=== PATIENT | female | born 1970 | race Caucasian/White ===

== ENCOUNTER → 2016-03-16 | Outpatient (CLI) | payer BC ==
[2016-03-16 15:57] LABS: Basophils # (A) 0.1 k/uL (0-0.2); Basophils % (A) 1 %; CH 24.9; CHCM 31.4; Eosinophils # (A) 0.1 k/uL (0-0.7); Eosinophils % (A) 1 %; HCT 34.5 % (34.0-46.0); HDW 2.67; HGB 10.4 gm/dL (11.4-16.0); Hypochromasia Slight; Luc % (Auto) 2; Lymphocytes # (A) 1.5 k/uL (1.0-4.8); Lymphocytes % (A) 26 %; MCH 23.9 pg (25.0-35.0); MCHC 30.2 g/dL (31.0-37.0); MCV 79.3 fL (80.0-100.0); Mean Platelet Volume 7.3; Monocytes # (A) 0.5 k/uL (0-1.0); Monocytes % (A) 8 %; Neutrophils # (A) 3.5 k/uL (1.3-7.7); Neutrophils % (A) 62 %; RBC 4.34 m/uL (3.80-5.40); RDW 15.5 % (11.5-15.5); WBC 5.7 k/uL (3.8-10.6); WBC (Perox) 5.93
[2016-03-16 16:04] LABS: Potassium 4.1 mmol/L (3.5-5.1)
== END | disposition home or self-care (01) ==
LOC: LABPAT 15:24
PROVIDERS: ATTEND Orthopaedic Surgery
DX: Z01.812 Encounter for preprocedural laboratory examination (principal); M23.92 Unspecified internal derangement of left knee
CPT/HCPCS: 80051; 85025

== ENCOUNTER 2016-03-23 08:17 | Day surgery (SDC) | payer BC ==
[2016-03-17 14:24] VITALS: BMI 25.7
--- NOTE | 2016-03-22 14:58 | HP ---
DATE OF ADMISSION: 03/23/2016 Loyda Madsen is a 46-year-old patient seen with left knee pain. After having treatment options discussed, she elected to proceed with left knee arthroscopy. Consent regarding the procedure was obtained. Her past medical history is attention deficit disorder, depression, hypothyroidism, migraine headaches. Past surgical history is right knee arthroscopy, right knee patellofemoral replacement. DAILY MEDICATIONS: 1. Adderall. 2. Amitriptyline. 3. Cymbalta. 4. Levothyroxine. 5. Gabapentin. ALLERGIES: None. SOCIAL HISTORY: Patient denies tobacco use. Physical evaluation of the left knee: Range of motion is -1/2 to 120 degrees, tenderness along the medial joint line. Tenderness along the lateral joint line. Positive medial Danita's. Ligaments are stable. There is crepitus of the patellofemoral joint range of motion. There is some discomfort of the patellofemoral compression. Hip rotation without pain. Distal neurovascular exam intact. Radiographs of the left knee revealed moderate medial and moderate lateral and moderate to severe patellofemoral compartment osteoarthritis. An MRI of the left knee revealed medial meniscal tear as well as osteoarthritic changes. IMPRESSION: 1. Internal derangement of the left knee with medial meniscal tear. 2. Left knee osteoarthritis. PLAN: Left knee arthroscopy with partial meniscectomy and debridement.
[~2016-03-23 08:17] MED LIST: DEXAMETHASONE SOD PHOSPHATE 10 MG/ML 1 ML VIAL IV ONE; LIDOCAINE 1% 20 ML VIAL (10MG/ML) FOR IV START INTRADERMA PRN; MIDAZOLAM 2 MG/2 ML VIAL IV PRN; ONDANSETRON 4 MG/2 ML VIAL IVP ONE; SCOPOLAMINE 1.5MG/72HR PATCH TRANSDERM ONE; ceFAZolin 1,000 MG in DEXTROSE/WATER 1 50ML.BAG IV ONE
[2016-03-23 09:00] VITALS: RESP 16
[2016-03-23] MEDS: LACTATED RINGERS 1,000 ML IV SCH ×2 (09:01→09:51)
[2016-03-23] MEDS ORDERED: PHENYLEPHRINE-0.9% NACL SYG 1 MG/10 ML SYRINGE ONE (09:54)
[2016-03-23] MEDS ORDERED: BUPIVACAIN-EPI 0.25%-1:200,000 30 ML VIAL INTRAARTIC ONE (09:54)
[2016-03-23] MEDS ORDERED: MIDAZOLAM 2 MG/2 ML VIAL ONE (09:54)
[2016-03-23] MEDS ORDERED: PROPOFOL 10 MG/ML 20 ML VIAL IV ONE (09:54)
[2016-03-23] MEDS ORDERED: KETOROLAC 30 MG/ML 1 ML VIAL ONE (09:54)
[2016-03-23] MEDS ORDERED: LIDOCAINE 1% INJ 10MG/ML (20 ML MDV) ONE (09:54)
[2016-03-23] MEDS ORDERED: fentaNYL (PF) 50 MCG/ML 2 ML AMP ONE (09:54)
[2016-03-23 10:44] VITALS: TEMP 97.2
--- NOTE | 2016-03-23 10:49 | P.OP ---
Date of Procedure: 03/23/16 Preoperative Diagnosis: Internal derangement left knee Postoperative Diagnosis: 1. Tear medial and lateral meniscus left knee 2. Grade 2/3 chondromalacia patella left knee 3. Medial plica left knee 4. Reactive synovitis medial and suprapatellar compartments left knee Procedure(s) Performed: 1. Arthroscopic partial medial and lateral meniscectomy left knee 2. Arthroscopic chondroplasty patella left knee 3. Arthroscopic resection medial plica left knee 4. Arthroscopic partial synovectomy medial and suprapatellar compartments left knee Anesthesia: HEATHERA, local Surgeon: Edd Barnes Estimated Blood Loss (ml): 5 Pathology: none sent Condition: stable Disposition: PACU Indications for Procedure: 46-year-old patient seen with progressive left knee pain. After having treatment options discussed, she elected to proceed with left knee arthroscopy. Operative Findings: See description of procedure Description of Procedure: Patient was taken to the operative suite. Patient underwent a general anesthetic by the department of anesthesia. Patient was given preoperative antibiotics. The left lower extremity was placed in a well-padded arthroscopic leg avery. The left leg was prepped and draped in the normal sterile orthopedic fashion. A lateral parapatellar and suprapatellar incision was made. Trochars were inserted. Arthroscopy was initiated. Suprapatellar pouch revealed thick reactive synovitis. The patellofemoral joint appeared to articulate congruently. There was grade 2/3 chondromalacia. The scope was guided into the medial gutter. There was a plica identified which seem to impinge along the medial femoral condyle with range of motion The scope was then guided into the medial compartment. A medial parapatellar incision was made. Trocar inserted followed by probe. There was a radial tear involving the posterior horn and midbody area of meniscus. Grade 1 chondromalacia changes of the tibial plateau. Thick reactive synovitis anteriorly. A partial medial meniscectomy was performed on a stable tissue. A partial synovectomy was performed. The residual meniscus was probed and found to be stable. Scope and probe were then guided into the intercondylar notch. Cruciates were identified, probed and found to be stable. The scope and probe were then guided into lateral compartment. There was a posterior horn lateral meniscal tear. No loose bodies or reactive synovitis. A partial lateral meniscectomy was performed on a stable tissue. The residual meniscus was probed and found to be stable. The scope was in guided back into the suprapatellar compartment. A motorized shaver was now introduced into the suprapatellar compartment. I resected that medial plica. I performed a chondroplasty of the patella. I performed a partial synovectomy. Shaver was removed. I took the knee through range of motion noted complete resection of the medial plica with no impingement of the soft tissues on the medial femoral condyle. I took one more look on the entire knee, no residual debris. Instruments were now removed from the joint. The joint was infiltrated with .25% Marcaine. Steri-Strips were applied to the portal sites. Sterile dressings were applied. The patient was placed into a ALMA hose. No tourniquet was utilized. The patient was awakened, transferred to a bed and taken to recovery stable satisfactory condition.
[2016-03-23] MEDS: HYDROmorphone 1 MG/ML 1 ML SYRINGE IVP PRN ×4 (10:55→11:22)
[2016-03-23] MEDS ORDERED: MIDAZOLAM 2 MG/2 ML VIAL IVP ONE (11:30)
[2016-03-23] MEDS ORDERED: HYDROcodone/APAP 7.5-325MG 1 EACH TAB PO ONE (12:06)
[2016-03-23 12:27] VITALS: BP 108/78; PULSE 75
== END 2016-03-23 12:38 | disposition home or self-care (01) ==
LOC: OR 08:17
PROVIDERS: ATTEND Orthopaedic Surgery
DX: S83.242A Other tear of medial meniscus, current injury, left knee, initial encounter (principal); S83.282A Other tear of lateral meniscus, current injury, left knee, initial encounter; X58.XXXA Exposure to other specified factors, initial encounter; M17.12 Unilateral primary osteoarthritis, left knee; M22.42 Chondromalacia patellae, left knee; M67.52 Plica syndrome, left knee; M65.862 Other synovitis and tenosynovitis, left lower leg; F98.8 Other specified behavioral and emotional disorders with onset usually occurring in childhood and adolescence; F32.9 Major depressive disorder, single episode, unspecified; E03.9 Hypothyroidism, unspecified; G43.909 Migraine, unspecified, not intractable, without status migrainosus; M79.7 Fibromyalgia; Z79.899 Other long term (current) drug therapy
CPT/HCPCS: 81025; 29880; J2250; J1100; J2405; J2001; J3010; J1885; J1170; J0690; J2370; J2704

== ENCOUNTER → 2016-05-16 | Outpatient (CLI) | payer BC ==
[2016-05-16 10:42] LABS: Basophils # (A) 0.1 k/uL (0-0.2); Basophils % (A) 1 %; CH 23.7; CHCM 30.7; Eosinophils % (A) 1 %; HCT 33.4 % (34.0-46.0); HGB 10.2 gm/dL (11.4-16.0); Hypochromasia Moderate; Luc # (Auto) 0.15; Luc % (Auto) 2; Lymphocytes % (A) 11 %; MCH 23.7 pg (25.0-35.0); MCHC 30.7 g/dL (31.0-37.0); MCV 77.3 fL (80.0-100.0); Mean Platelet Volume 7.3; Microcytosis Slight; Monocytes # (A) 0.4 k/uL (0-1.0); Monocytes % (A) 5 %; Neutrophils # (A) 7.6 k/uL (1.3-7.7); Neutrophils % (A) 82 %; RBC 4.32 m/uL (3.80-5.40); RDW 15.7 % (11.5-15.5); WBC 9.2 k/uL (3.8-10.6); WBC (Perox) 9.65
[2016-05-16 11:02] LABS: Potassium 4.1 mmol/L (3.5-5.1)
== END | disposition home or self-care (01) ==
LOC: LABPAT 08:58
PROVIDERS: ATTEND Orthopaedic Surgery
DX: Z01.818 Encounter for other preprocedural examination (principal)
CPT/HCPCS: 36415; 80051; 85025

== ENCOUNTER 2016-05-17 07:59 | Day surgery (SDC) | payer BC ==
[2016-05-16 11:35] VITALS: BMI 26.4
--- NOTE | 2016-05-16 15:58 | HP ---
DATE OF ADMISSION: 05/17/2016 Loyda Madsen is a 46-year-old lady seen with a displaced right knee patella fracture with history of previous right knee patellofemoral arthroplasty. I recommended open reduction internal fixation of the right knee patella fracture. I discussed the procedure, risks, complications, benefits, recovery. The patient was agreeable. Consent was obtained. Past medical history is attention deficit disorder, depression, hypothyroidism, migraine headaches, osteoarthritis. Past surgical history is right knee arthroscopy, right knee patellofemoral joint arthroplasty. DAILY MEDICATIONS: Adderall, amitriptyline, Cymbalta, levothyroxine, gabapentin. ALLERGIES: None. SOCIAL HISTORY: Patient denies tobacco use. PHYSICAL EVALUATION OF THE RIGHT KNEE: There is previous well-healed anterior incision present. There is anterior ecchymosis. Limited range of motion. Mild effusion. Tenderness along the patella with obvious defect. Distal neurovascular exam is intact. Radiographs of the right knee revealed a displaced patella fracture with evidence of previous patellofemoral joint arthroplasty. IMPRESSION: 1. Right knee displaced patella fracture. 2. History of right knee patellofemoral arthroplasty. PLAN: Open reduction internal fixation of right knee patella fracture.
[~2016-05-17 07:59] MED LIST changes: +HYDROmorphone 1 MG/ML 1 ML SYRINGE IVP PRN; -LIDOCAINE 1% 20 ML VIAL (10MG/ML) FOR IV START INTRADERMA PRN
[2016-05-17] MEDS: LACTATED RINGERS 1,000 ML IV SCH ×2 (08:31→13:40)
[2016-05-17] MEDS ORDERED: LIDOCAINE 1% 20 ML VIAL (10MG/ML) FOR IV START INTRADERMA ONE (08:31)
[2016-05-17] MEDS ORDERED: MIDAZOLAM 2 MG/2 ML VIAL IVP ONE (08:50)
[2016-05-17] MEDS ORDERED: ROPIVACAINE 1,100 MG, SODIUM CHLORIDE 0.9% 330 ML MISCELLANE PRN ×2 (09:13)
[2016-05-17] MEDS ORDERED: fentaNYL (PF) 50 MCG/ML 2 ML AMP IV ONE (09:14)
--- NOTE | 2016-05-17 09:15 | P.ONQ ---
Anesthesiology Proc Note - PNB - Peripheral Nerve Block Performed Right Adductor Canal Infusion Time Out Performed: Yes Procedure Start Time: 08:50 Procedure Stop Time: 09:05 Indication: Acute Post-Operative Pain, Analgesia Specifically requested for management of pain by DrSharyn: Edd Barnes Sedation Type: Sedate with meaningful contact maintained Preparation: Sterile Prep Position: Supine Catheter Depth at Skin (cm): 8 Catheter: Indwelling Needle Types: On-Q Needle Size: 100mm (4") Needle Gauge: 20 Technique: Ultrasound Injectate: 0.5% Ropivacaine (see comment for volume) (20) Blood Aspirated: No Pain Paresthesia on Injection Noted: No Resistance on Injection: Normal Events: Uneventful and Well Tolerated
[2016-05-17] MEDS ORDERED: PROPOFOL 10 MG/ML 20 ML VIAL IV ONE (09:59)
[2016-05-17] MEDS ORDERED: fentaNYL (PF) 50 MCG/ML 2 ML AMP ONE (09:59)
[2016-05-17] MEDS ORDERED: MIDAZOLAM 2 MG/2 ML VIAL ONE (09:59)
[2016-05-17] MEDS ORDERED: SODIUM CHLORIDE 0.9% 100 ML with GENTAMICIN 80 MG IV ONE ×2 (10:25)
[2016-05-17] MEDS ORDERED: ceFAZolin 1,000 MG in SODIUM CHLORIDE 0.9% 1,000 ML IRRIGATION ONE (10:37)
--- NOTE | 2016-05-17 11:38 | P.OP ---
Date of Procedure: 05/17/16 Preoperative Diagnosis: Displaced right knee patella fracture with previous patellofemoral compartment arthroplasty Postoperative Diagnosis: Same Procedure(s) Performed: Open reduction and internal fixation right knee patella fracture Implants: To 0.62 K wires and one 16-gauge cerclage wire Anesthesia: regional (Adductor canal block), spinal Surgeon: Edd Barnes Grounds Keeper #1: Manjit Gibbs Estimated Blood Loss (ml): 10 Pathology: none sent Condition: stable Disposition: PACU Indications for Procedure: 46-year-old patient seen with a displaced right knee patella fracture with evidence of previous patellofemoral compartment arthroplasty. I recommended open reduction and internal fixation. Patient was agreeable and consent was obtained. Operative Findings: See description of procedure Description of Procedure: Patient was taken to the operative suite after having undergone an adductor canal block by the department of anesthesia. The patient received preoperative IV antibiotics. A final anesthetic was performed by the department of anesthesia. A well-padded tourniquet was placed proximal right lower extremity. The right lower extremity was then prepped and draped in the normal sterile orthopedic fashion. The extremity was elevated and tourniquet insufflated to 350. A midline incision was made over the previous cicatrix extending approximately 2 cm proximally and distally. We medially encountered a hemarthrosis/effusion that was evacuated. We carefully dissected around the patella noting a mid/proximal third patella fracture. The proximal portion was bony in the distal portion containing the patellar component which appeared to be well seated and stable. 2 of the 3 pegs for the patella were cemented stable he into the distal component. I felt the patellar component was adequately stabilized by this. We now carefully abraded the ends of the patella. I decided to repair the patella and not stabilize the component to the proximal piece inferior getting some cement interposed between the fragments. I irrigated the wound out with antibiotic solution. I then passed the 2-0.62 K wires through the distal portion of the patella. We now reduce the patella anatomically and in a retrograde fashion passed the K wires to the proximal pole of the patella. We now used the cerclage wire compressing the patella down. The ends of the cerclage were clipped and buried in the soft tissue. The ends of th K wires were clipped and bent and again buried in soft tissue. A C-arm was brought in confirming good reduction of the fracture with good positioning of the internal fixation. Spot films were obtained to document that. The wound again was irrigated with antibiotic irrigant. The retinaculum medially and laterally was repaired with #3 Vicryl. The subcu soft tissues were repaired in layers with 2-0 Vicryl. The subcutaneous skin was repaired with a running 3-0 strata fix suture and the skin was repaired with pernio/Dermabond. The tourniquet was released noting good capillary refill the extremity. Sterile dressings followed by loose Jordan bandage web roll were applied patient the extremity was now placed into a knee immobilizer locked at full extension. The patient was awakened transferred to a bed and taken recovery stable condition. Manjit LEVINE assisted with the procedure.
[2016-05-17] MEDS ORDERED: HYDROcodone/APAP 7.5-325MG 1 EACH TAB PO PRN ×2 (11:39)
[2016-05-17] MEDS ORDERED: ONDANSETRON 4 MG/2 ML VIAL IVP PRN (11:39)
[2016-05-17] MEDS ORDERED: HYDROmorphone 1 MG/ML 1 ML SYRINGE IVP PRN ×2 (11:39)
[2016-05-17] MEDS ORDERED: MAGNESIUM HYDROXIDE 2,400 MG/10 ML CUP PO PRN (11:39)
[2016-05-17] MEDS ORDERED: NALOXONE 0.4 MG/ML 1 ML VIAL IV PRN (11:39)
--- NOTE | 2016-05-17 11:58 | FL ---
EXAMINATION TYPE: FL guidance operating room DATE OF EXAM: 05/17/2016 11:08 AM HISTORY: Flouroscopy time 10 seconds of fluoroscopy provided. IMPRESSION: 1. Fluoroscopy time.
--- NOTE | 2016-05-17 12:05 | XR ---
EXAMINATION TYPE: XR knee limited RT DATE OF EXAM: 05/17/2016 11:08 AM COMPARISON: NONE TECHNIQUE: 2 view submitted HISTORY: Post op FINDINGS: There is postoperative change in near anatomic alignment. There is soft tissue edema and emphysema. IMPRESSION: 1. Postoperative change. Appears in near-anatomic alignment
[2016-05-17] MEDS: traMADol 50 MG TAB PO SCH ×3 (14:18→21:29)
[2016-05-17] MEDS: CYCLOBENZAPRINE 10 MG TAB PO PRN (14:18)
[2016-05-17] MEDS: ceFAZolin 2 GM in SODIUM CHLORIDE 0.9% 100 ML IVPB SCH (16:19)
[2016-05-17] MEDS: HYDROcodone/APAP 7.5-325MG 1 EACH TAB PO PRN ×2 (16:19→21:29)
[2016-05-17] MEDS ORDERED: SENNOSIDES-DOCUSATE SODIUM 1 EACH TAB PO SCH (21:00)
[2016-05-17] MEDS ORDERED: GABAPENTIN 300 MG CAP PO SCH (21:00)
[2016-05-17] MEDS ORDERED: AMITRIPTYLINE HCL 10 MG TAB PO SCH (21:00)
[2016-05-17] MEDS ORDERED: PSYLLIUM HUSK 100% 6 GM PACKET PO SCH (21:00)
[2016-05-18] MEDS: ceFAZolin 2 GM in SODIUM CHLORIDE 0.9% 100 ML IVPB SCH (00:13)
[2016-05-18] MEDS: HYDROcodone/APAP 7.5-325MG 1 EACH TAB PO PRN ×2 (02:54→08:15)
[2016-05-18] MEDS ORDERED: LEVOTHYROXINE 25 MCG TAB PO SCH (06:30)
[2016-05-18] MEDS: traMADol 50 MG TAB PO SCH (08:23)
[2016-05-18] MEDS: CYCLOBENZAPRINE 10 MG TAB PO PRN (08:24)
[2016-05-18 08:25] VITALS: BP 130/76; PULSE 82; RESP 17; TEMP 98.2
[2016-05-18] MEDS ORDERED: DULoxetine HCL 60 MG CAPSULE.DR PO SCH (09:00)
[2016-05-18] MEDS ORDERED: NON-FORMULARY DRUG (Dextroamphetamine/Amphetamine [Adderall] 20 MG) PO SCH (09:00)
[2016-05-18] MEDS ORDERED: ENOXAPARIN 30 MG/0.3 ML SYRINGE SQ SCH (09:00)
[2016-05-18] MEDS ORDERED: FAMOTIDINE 20 MG TAB PO SCH (09:00)
--- NOTE | 2016-05-18 10:02 | P.PN ---
Subjective Principal diagnosis: Status post ORIF right patella fracture patient is seen today resting in her hospital bed, she scab family at bedside. She's doing very well at this point, she has no acute complaints. She denies any lightheadedness, chest pain, shortness of breath, nausea or vomiting. Objective - Vital Signs Vital signs: Vital Signs Temp 98.2 F 05/18/16 07:00 Pulse 82 05/18/16 07:00 Resp 17 05/18/16 07:00 BP 130/76 05/18/16 07:00 Pulse Ox 100 05/18/16 07:00 Intake & Output 05/17/16 05/18/16 05/18/16 18:59 06:59 18:59 Intake Total 954 Output Total 10 Balance 944 Weight 69.85 kg Intake: IV 954 Output: Estimated Blood Loss 10 Other: # Voids 1 1 - Exam Right lower extremity: Initial postoperative bandage removed along with hinge knee brace has been locked in full extension. Incision is clean, dry and intact. There is ecchymosis and swelling present on the aspects of the incision. Plantar flexion , dorsiflexion, EHL, FHL are intact. Sensory exam light touch is intact throughout the extremity, cap refills less than 2 seconds. Assessment and Plan Plan: Assessment: 1. Postop day #1 status post ORIF right patella fracture Plan: 1. Pain control, she'll be discharged home on oral medication 2. She will remain nonweightbearing 3. Utilize hinge knee brace, locked in full extension 4. GI and DVT prophylaxis, aspirin 325 mg twice a day for 2 weeks 5. Ice and elevate/daily dressing changes 6. Discharge planning: Patient will be discharged home today Time with Patient: Less than 30
--- NOTE | 2016-05-18 10:09 | P.DS ---
Providers Date of admission: 05/17/2016 Expected date of discharge: 05/18/16 Attending physician: Edd Barnes Primary care physician: [facility] Course: Date of admission: 05/17/2016 Date of discharge: 05/18/2016 Admission diagnosis: Status post open reduction internal fixation right patellar fracture Discharge diagnosis: Same Attending physician: Dr. Barnes Surgical procedures: Open reduction internal fixation right patellar fracture Brief history: Patient is a 46-year-old female with a history of recent fall at her home. Patient fell directly on the right knee, after the injury she was unable to extend her leg. She was seen in the outpatient setting by myself, or x-rays were done which demonstrated a displaced right patellar fracture. Patient was scheduled for immediate follow-up with Dr. Barnes, where surgical intervention was discussed and scheduled for 05/17/2016. Hospital course: Details of patient's surgery can be found in operative report. Patient tolerated the procedure well and was subsequently transported to orthopedic floor. Patient's orthopeidc and medical care was provided daily. Patient was treated with Lovenox for their postoperative DVT prophylaxis during their inpatient stay. Patient was noted to have a relatively uneventful postoperative course. Patient reported satisfactory pain control with oral pain medications by postoperative day 0. Patient moved steadily through the program and had no difficulty meeting the goals by postoperative day 1. Given patient's otherwise satisfactory course and having met physical therapy goals, plan is to discharge patient home on postoperative day 1. Discharge condition/disposition: Patient will be discharged home in stable condition. Discharge medications: Instructions are given on resumption of patient's normal daily medications per primary care recommendation, in addition patient will be prescribed [place] 7.5 mg/325 mg, aspirin 325 mg. Discharge instructions: 1. Wound care and infection precautions, keep incision dry and covered while showering, no lotions, creams, moisturizers. No soaking, tubs, pools, hottubs. Do not scrub over the incision. 2. nonweightbearing right lower extremity, utilize hinge knee brace locked in full extension 3. Ice and elevate when necessary. Do not exceed 20 minutes per hour with ice pack. 4. Utilize compression sleeve until seen at first follow up appointment. 5. Pain meds and anticoagulants per prescription. 6. Pain medication has potential to cause constipation. Increase oral fluid and fiber intake. Contact primary care provider if you have not had a bowel movement within 48 hours after discharge 7. No anti-inflammatory medication until discussed at first post operative visit, this including Motrin, Aleve, Mobic, Diclofenac. 8. Follow up in office at 2 weeks postop with Jose Rafael Gibbs PA-C 9. Follow up with your primary care doctor 7-10 days after discharge. 10. Contact [facility] with any questions, . Procedures: ORIF right patellar fracture Patient Condition at Discharge: Good Plan - Discharge Summary New Discharge Prescriptions: Aspirin 325 mg PO BID #30 tab HYDROcodone/APAP 7.5-325MG [[place] 7.5] 1 - 2 each PO Q6HR PRN #40 tab PRN Reason: Pain Discharge Medication List Amitriptyline HCl [Elavil] 30 mg PO HS 03/17/16 [History] Cyclobenzaprine [Flexeril] 10 mg PO TID PRN 03/17/16 [History] DULoxetine HCL [Cymbalta] 60 mg PO DAILY 03/17/16 [History] Gabapentin [Neurontin] 600 mg PO HS 03/17/16 [History] Levothyroxine Sodium [Synthroid] 25 mcg PO DAILY 03/17/16 [History] HYDROcodone/APAP 7.5-325MG [[place] 7.5] 1 each PO Q6HR PRN #20 tab 03/23/16 [Rx] Dextroamphetamine/Amphetamine [Adderall] 20 mg PO DAILY 05/16/16 [History] Aspirin 325 mg PO BID #30 tab 05/18/16 [Rx] HYDROcodone/APAP 7.5-325MG [[place] 7.5] 1 - 2 each PO Q6HR PRN #40 tab 05/18/16 [ Rx] Follow up Appointment(s)/Referral(s): Manjit Gibbs PAC [PHYSICIAN [employer]] - 2 Weeks Activity/Diet/Wound Care/Special Instructions: Discharge instructions: 1. Nonweightbearing right lower extremity 2. Utilize hinge knee brace locked in full extension 3. Ice and elevate often 4. Daily dressing changes 5. Aspirin 325 mg twice a day for DVT prophylaxis 6. Pain medication as needed 7. Patient will follow-up [facility] in 2 weeks Discharge Disposition: HOME SELF-CARE
--- NOTE | 2016-05-18 12:15 | P.PN ---
Progress Note - Text 0730 anesthesia POD 1. Patient is status post ORIF right patellar fracture under spinal anesthesia with a right adductor canal catheter placed for postoperative pain relief. Currently 0.2% ropivacaine is infusing at 12 mL per hour patient reports a VAS of (2, 4) and is preparing to be discharged home with instructions on removing the catheter and dressing it with a Band-Aid when the infusion is finished. Catheter site is clean dry and the dressing is intact.
== END 2016-05-18 12:06 | disposition home or self-care (01) ==
LOC: OR 07:59 → 3SUR 11:35 → OR 05-18 12:06
PROVIDERS: ATTEND Orthopaedic Surgery
DX: S82.001A Unspecified fracture of right patella, initial encounter for closed fracture (principal); X58.XXXA Exposure to other specified factors, initial encounter; F90.9 Attention-deficit hyperactivity disorder, unspecified type; F32.9 Major depressive disorder, single episode, unspecified; E03.9 Hypothyroidism, unspecified; M19.90 Unspecified osteoarthritis, unspecified site; Z79.899 Other long term (current) drug therapy
CPT/HCPCS: 97116; 97161; 81025; 73560; 27524; C1713; C1772; J2250; J1580; J1100; J0690 ×4; J2405; J3010; J1650; J2704

== ENCOUNTER 2016-06-19 14:08 | Observation (INO) | payer BC ==
--- NOTE | 2016-06-18 18:06 | HP ---
DATE OF ADMISSION: REASON FOR ADMISSION: Surgery scheduled on 06/19/2016 Loyda Madsen is a 46-year-old patient seen with a displaced right knee patella fracture. She had previously undergone patellofemoral joint reconstruction. She sustained a patella fracture of that reconstruction, which underwent primary repair by myself on 05/17/2016. She was seen in the office postoperatively. We noted some displacement of the fracture. I recommended open reduction internal fixation/revision. I discussed, the procedure, risks, complications recovery period. Patient was agreeable. Consent was obtained. Her past medical history is attention deficit disorder, depression, hypothyroidism and migraine headaches. Past surgical history is right knee arthroscopy, right knee patellofemoral joint reconstruction, open reduction and internal fixation of right patella fracture. Daily medications: 1. Adderall. 2. Amitriptyline. 3. Gabapentin. 4. Levothyroxine. 5. Cymbalta. ALLERGIES: None. SOCIAL HISTORY: Patient denies tobacco use. Physical evaluation of the right knee: There is evidence for a well-healed anterior incision. There is tenderness about area. There is a limited range of motion. Her distal neurovascular exam is intact. Homans and Arnoldo are negative. Radiographs were obtained of the right knee revealing a displaced patella fracture stable -appearing internal fixation hardware and stable -appearing patellofemoral joint reconstruction. IMPRESSION: Right knee patella fracture. PLAN: Open reduction and internal fixation right knee patella fracture.
[~2016-06-19 14:08] MED LIST changes: -DEXAMETHASONE SOD PHOSPHATE 10 MG/ML 1 ML VIAL IV ONE; -HYDROmorphone 1 MG/ML 1 ML SYRINGE IVP PRN; -MIDAZOLAM 2 MG/2 ML VIAL IV PRN; -ONDANSETRON 4 MG/2 ML VIAL IVP ONE; -SCOPOLAMINE 1.5MG/72HR PATCH TRANSDERM ONE
[2016-06-19] MEDS ORDERED: DEXAMETHASONE SOD PHOSPHATE 10 MG/ML 1 ML VIAL IV ONE (14:16)
[2016-06-19] MEDS ORDERED: ONDANSETRON 4 MG/2 ML VIAL IVP ONE (14:16)
[2016-06-19] MEDS ORDERED: HYDROmorphone 1 MG/ML 1 ML SYRINGE IVP PRN ×4 (14:16→18:33)
[2016-06-19] MEDS ORDERED: SCOPOLAMINE 1.5MG/72HR PATCH TRANSDERM ONE (14:16)
[2016-06-19] MEDS ORDERED: MIDAZOLAM 2 MG/2 ML VIAL IV PRN (14:16)
[2016-06-19] MEDS ORDERED: LIDOCAINE 1% 20 ML VIAL (10MG/ML) FOR IV START INTRADERMA ONE (14:23)
[2016-06-19] MEDS ORDERED: LACTATED RINGERS 1,000 ML IV ONE ×2 (14:23→17:57)
[2016-06-19] MEDS ORDERED: MIDAZOLAM 2 MG/2 ML VIAL IVP ONE (14:44)
[2016-06-19] MEDS ORDERED: fentaNYL (PF) 50 MCG/ML 2 ML AMP IV ONE (14:45)
--- NOTE | 2016-06-19 16:05 | P.ONQ ---
Anesthesiology Proc Note - PNB - Peripheral Nerve Block Performed Right Adductor Canal Infusion Time Out Performed: Yes Indication: Acute Post-Operative Pain, Analgesia Specifically requested for management of pain by DrSharyn: Edd Barnes Sedation Type: Sedate with meaningful contact maintained Preparation: Sterile Prep Position: Supine Catheter Depth at Skin (cm): 6 Catheter: Indwelling Needle Types: On-Q Needle Size: 100mm (4") Needle Gauge: 20 Technique: Ultrasound Injectate: 0.5% Ropivacaine (see comment for volume) (20 cc) Blood Aspirated: No Pain Paresthesia on Injection Noted: No Resistance on Injection: Normal Events: Uneventful and Well Tolerated
[2016-06-19] MEDS ORDERED: PROPOFOL 10 MG/ML 20 ML VIAL IV ONE (16:33)
[2016-06-19] MEDS ORDERED: fentaNYL (PF) 50 MCG/ML 2 ML AMP ONE (16:33)
[2016-06-19] MEDS ORDERED: MIDAZOLAM 2 MG/2 ML VIAL ONE (16:33)
[2016-06-19] MEDS ORDERED: ceFAZolin 1,000 MG VIAL ONE (16:33)
[2016-06-19] MEDS ORDERED: BUPIVACAINE (PF) 0.25% 30 ML VIAL SQ ONE (17:04)
[2016-06-19] MEDS ORDERED: ceFAZolin 3,000 MG in SODIUM CHLORIDE 0.9% IRRIGATIO 3,000 ML IRRIGATION ONE (17:05)
[2016-06-19] MEDS ORDERED: ROPIVACAINE 1,100 MG, SODIUM CHLORIDE 0.9% 330 ML MISCELLANE PRN ×2 (17:30)
[2016-06-19] MEDS ORDERED: NALOXONE 0.4 MG/ML 1 ML VIAL IV PRN (18:33)
[2016-06-19] MEDS ORDERED: ONDANSETRON 4 MG/2 ML VIAL IVP PRN (18:33)
[2016-06-19] MEDS ORDERED: hydrOXYzine PAMOATE 25 MG CAP PO PRN (18:33)
[2016-06-19] MEDS ORDERED: HYDROcodone/APAP 7.5-325MG 1 EACH TAB PO PRN ×2 (18:33)
--- NOTE | 2016-06-19 18:33 | P.OP ---
Date of Procedure: 06/19/16 Preoperative Diagnosis: Displaced right knee patella fracture Postoperative Diagnosis: Displaced right knee patella fracture Procedure(s) Performed: Open reduction and internal fixation right knee patella fracture Implants: 1-34 mm 4.0 cannulated screw 1-30 mm 4.0 cannulated screw Anesthesia: CHRIS local Surgeon: Edd Barnes Manager Sales And Marketing #1: Manjit Gibbs Estimated Blood Loss (ml): 10 Pathology: none sent Condition: stable Disposition: PACU Indications for Procedure: 46-year-old patient seen with a displaced right knee patella fracture. I recommended open reduction and internal fixation. Patient was agreeable and consent was obtained. Operative Findings: see description of procedure Description of Procedure: Patient was taken to the operative suite after having undergone and adductor canal block by department of anesthesia. A well-padded tourniquet was now placed right lower extremity. The right lower extremity was now prepped and draped in the normal sterile orthopedic fashion. The patient had received preoperative IV antibiotics. The extremity is elevated and tourniquet insufflated to 350. An anterior incision made through the previous cicatrix sharply through skin. Dissection was taken down to the area of the patella. The patella was identified. After careful dissection the fracture was identified. I removed previous cerclage wire and previous K wires. I now freshened up the edges of the bone margins with a rongeur. I then irrigated the wound out copiously with pulse lavage mechanical irrigation. I then passed the guidewires for the cannulated screws through her previous K wire holes. I reduced the fracture. I confirmed adequate alignment on intraoperative fluoroscopy. I then depth gauged the wires for appropriate screw lengths. I confirmed this also on C-arm fluoroscopy. I then reamed the holes and introduced to appropriate length 4.0 cannulated screws securing the fracture in good alignment securely. I then passed a cerclage wire and performed a tension banding technique. The wire ends were clipped. This is buried in soft tissue. The C-arm was brought in confirming good alignment and good positioning of our fixation. Spot films were obtained documenting. The wound again was irrigated with pulse lavage Irrigation. The fascia overlying the patella was repaired with #1 Vicryl. The subcu soft tissues were repaired layers with 2-0 Vicryl. This goes approximated with a running subcuticular 3-0 strata fix suture followed by Dermabond and pernio. The subcutaneous skin was now infiltrated local analgesic. We applied sterile dressings. The tourniquet was released and immediate capillary refill was noted about the infection may. Sterile webril and Jordan bandage were applied. The patient was placed into a to a knee immobilizer and then transferred to a bed and recovery stable condition. Jose Rafael LEVINE assisted with the procedure.
[2016-06-19] MEDS ORDERED: LACTATED RINGERS 1,000 ML IV SCH (18:45)
--- NOTE | 2016-06-19 20:25 | FL ---
EXAMINATION TYPE: FL guidance operating room, XR knee limited RT DATE OF EXAM: 06/19/2016 6:10 PM CLINICAL HISTORY: Right patellar fracture. TECHNIQUE: Fluoroscopy. Intraoperative limited views right knee. COMPARISON: None. FINDINGS: Fluoroscopic guidance was provided during right knee surgical procedure performed by Dr. Barnes. A total of 8 seconds of fluoroscopic time was utilized during the procedure and 2 spot im ages are acquired. Intraoperative images acquired show 2 fixating screws with cerclage wire through the patella. Metalli c hardware anterior in the distal femur is noted. IMPRESSION: As Above.
[2016-06-19] MEDS ORDERED: PSYLLIUM HUSK 100% 6 GM PACKET PO SCH (21:00)
[2016-06-19] MEDS ORDERED: GABAPENTIN 300 MG CAP PO SCH (21:00)
[2016-06-19] MEDS ORDERED: AMITRIPTYLINE HCL 10 MG TAB PO SCH (21:00)
[2016-06-19 21:02] VITALS: BMI 24.8
[2016-06-19] MEDS: LACTATED RINGERS 1,000 ML IV SCH ×2 (21:51→23:11)
[2016-06-19] MEDS: ALPRAZolam 0.5 MG TAB PO PRN (22:04)
[2016-06-19] MEDS: traMADol 50 MG TAB PO SCH (23:11)
[2016-06-20] MEDS: ceFAZolin 2 GM in SODIUM CHLORIDE 0.9% 100 ML IVPB SCH ×2 (00:15→07:21)
[2016-06-20] MEDS ORDERED: LEVOTHYROXINE 25 MCG TAB PO SCH (06:30)
[2016-06-20 07:01] LABS: Basophils % (A) 0 %; CHCM 29.8; Eosinophils % (A) 0 %; HCT 32.5 % (34.0-46.0); HDW 2.81; HGB 10.4 gm/dL (11.4-16.0); Hypochromasia Marked; Luc # (Auto) 0.16; Luc % (Auto) 1; Lymphocytes # (A) 1.3 k/uL (1.0-4.8); Lymphocytes % (A) 9 %; MCH 24.8 pg (25.0-35.0); MCHC 32.1 g/dL (31.0-37.0); MCV 77.1 fL (80.0-100.0); Mean Platelet Volume 6.4; Microcytosis Slight; Monocytes # (A) 0.7 k/uL (0-1.0); Monocytes % (A) 5 %; Neutrophils # (A) 12.3 k/uL (1.3-7.7); Neutrophils % (A) 85 %; RBC 4.21 m/uL (3.80-5.40); RDW 15.3 % (11.5-15.5); WBC 14.5 k/uL (3.8-10.6); WBC (Perox) 15.49
[2016-06-20] MEDS: LACTATED RINGERS 1,000 ML IV SCH (07:21)
[2016-06-20] MEDS: ALPRAZolam 0.5 MG TAB PO PRN (08:44)
--- NOTE | 2016-06-20 08:58 | P.PN ---
Progress Note - Text 0755 anesthesia POD 1. Patient is status post ORIF right patella under spinal anesthesia with a right adductor canal catheter placed for postoperative pain relief. VAS equals (0, 0). Ropivacaine 0.2% is running at 8 mL per hour. Catheter site is clean dry and the dressing is intact.
[2016-06-20] MEDS ORDERED: ENOXAPARIN 30 MG/0.3 ML SYRINGE SQ SCH (09:00)
[2016-06-20] MEDS ORDERED: DULoxetine HCL 60 MG CAPSULE.DR PO SCH (09:00)
[2016-06-20] MEDS ORDERED: MULTIVITAMINS, THERA 1 EACH TAB PO SCH (12:00)
--- NOTE | 2016-06-20 12:47 | P.CONS ---
History of Present Illness - Reason for Consult Consult date: 06/20/16 Medical management - History of Present Illness This is a 46-year-old female patient of Dr. Jeremi Ferreira with a past medical history of fibromyalgia under the care of Dr. De León, osteoarthritis , hypothyroidism. Patient states that she fell on May 10 and sustained a right patella fracture. She underwent open reduction and internal fixation of the right knee on May [address] Barnes. Subsequently, she returned to [facility] on 06/19/2016 and underwent open reduction internal fixation. Patient has had no postop complications. She states she is able to walk with crutches and be nonweightbearing on the right leg. She also has a knee immobilizer. She has a right adductor canal catheter in place. She denies any pain issues. Review of Systems All systems: negative Constitutional: Denies chills, Denies fever Eyes: denies blurred vision, denies pain Ears, nose, mouth and throat: Denies headache, Denies sore throat Cardiovascular: Denies chest pain, Denies shortness of breath Respiratory: Denies cough Gastrointestinal: Denies abdominal pain, Denies diarrhea, Denies nausea, Denies vomiting Genitourinary: Denies dysuria, Denies hematuria Musculoskeletal: Denies myalgias Integumentary: Denies pruritus, Denies rash Neurological: Denies numbness, Denies weakness Psychiatric: Denies anxiety, Denies depression Endocrine: Denies fatigue, Denies weight change Past Medical History Past Medical History: Fibromyalgia, Osteoarthritis (OA), Thyroid Disorder Additional Past Medical History / Comment(s): HX OF FX RIGHT KNEE WITH SURGERY AND RE-INJURED KNEE- WEARING BRACE AND USING CRUTCHES. History of Any Multi-Drug Resistant Organisms: None Reported Past Surgical History: Cholecystectomy, Joint Replacement, Tubal Ligation Additional Past Surgical History / Comment(s): LEFT KNEE ARTHROSCOPIC , PARTIAL RIGHT KNEE REPLACEMENT, ORIF RIGHT KNEE FX (05/17/16 and 06/19/2016) Past Anesthesia/Blood Transfusion Reactions: Postoperative Nausea & Vomiting ( PONV) Past Psychological History: ADD/ADHD, Anxiety Smoking Status: Never smoker Past Alcohol Use History: Rare Additional Past Alcohol Use History / Comment(s): Patient is a lifelong nonsmoker. She denies any other street drug use. She does not have a medical marijuana card. He lives at home with her children 18 and 20 years old. Past Drug Use History: Marijuana Additional Drug Use History / Comment(s): OCCASIONAL MARIJUANA USE. - Past Family History Mother Family Medical History: Cancer Additional Family Medical History / Comment(s): Mother is alive at age 72 with history of hysterectomy in her 40s for noncancerous reason. Sister(s) Family Medical History: Cancer, Rheumatoid Arthritis (RA) Additional Family Medical History / Comment(s): Patient has one half sister with rheumatoid arthritis and one half-sister with history of bone cancer status post bone marrow transplant. Father Additional Family Medical History / Comment(s): Mother at age 80 from heart failure with history of coronary artery disease status post 4 vessel CABG. Medications and Allergies Home Medications Medication Instructions Recorded Confirmed Type Amitriptyline HCl [Elavil] 30 mg PO HS 03/17/16 06/20/16 History DULoxetine HCL [Cymbalta] 60 mg PO DAILY 03/17/16 06/20/16 History Gabapentin [Neurontin] 600 mg PO HS 03/17/16 06/20/16 History Levothyroxine Sodium [Synthroid] 25 mcg PO DAILY 03/17/16 06/20/16 History Dextroamphetamine/Amphetamine 20 mg PO DAILY PRN 05/16/16 06/20/16 History [Adderall] ALPRAZolam [Xanax] 0.5 mg PO TID PRN 06/16/16 06/20/16 History Calcium Carbonate [Calcium] 1,200 mg PO DAILY 06/16/16 06/20/16 History Multivitamins, Thera [Multivitamin 1 tab PO DAILY 06/16/16 06/20/16 History (formulary)] Psyllium Husk 100% [Metamucil 6 gm PO HS 06/16/16 06/20/16 History Packet] HYDROcodone/APAP 7.5-325MG [[place] 1 - 2 tab PO Q6HR PRN 06/20/16 06/20/16 History 7.5] Allergies Allergy/AdvReac Type Severity Reaction Status Date / Time No Known Allergies Allergy Verified 06/16/16 13:46 Physical Exam Vitals: Vital Signs Temp Pulse Pulse Resp BP Pulse Ox 06/20/16 06:10 98.1 F 73 18 108/68 96 06/19/16 23:00 98.5 F 83 18 125/90 06/19/16 22:00 79 18 144/86 100 06/19/16 21:00 87 18 118/85 100 06/19/16 20:00 98.5 F 87 18 117/80 100 06/19/16 19:33 55 L 16 118/45 99 06/19/16 19:15 52 L 16 111/66 99 06/19/16 19:01 52 L 16 109/67 99 06/19/16 18:46 55 L 16 118/65 99 06/19/16 18:32 97 F L 55 L 16 122/60 99 06/19/16 14:16 98.1 F 82 18 122/66 98 Intake and Output 06/19/16 06/20/16 06/20/16 22:59 06:59 14:59 Intake Total 1161 1200 Output Total 10 Balance 1151 1200 Intake: IV 561 Oral 600 1200 Output: Estimated Blood Loss 10 Other: Voiding Method Toilet # Voids 2 4 Weight 65.77 kg Gen: This is a 46-year-old female. She is sitting up in bed and appears to be in no acute distress. HEENT: Head is atraumatic, normocephalic. Pupils equal, round. Sclerae is anicteric. NECK: Supple. No JVD. No lymphadenopathy. No thyromegaly. LUNGS: Clear to auscultation. No wheezes or rhonchi. No intercostal retractions. HEART: Regular rate and rhythm. No murmur. ABDOMEN: Soft. Bowel sounds are present. No masses. No tenderness. EXTREMITIES: No pedal edema. No calf tenderness. Right sided knee immobilizer and dressing in place. NEUROLOGICAL: Patient is awake, alert and oriented x3. Cranial nerves 2 through 12 are grossly intact. Results CBC & Chem 7: 06/20/16 06:35 Labs: Abnormal Lab Results - Last 24 Hours (Table) 06/20/16 Range/Units 06:35 WBC 14.5 H (3.8-10.6) k/uL Hgb 10.4 L (11.4-16.0) gm/dL Hct 32.5 L (34.0-46.0) % MCV 77.1 L (80.0-100.0) fL MCH 24.8 L (25.0-35.0) pg Neutrophils # 12.3 H (1.3-7.7) k/uL Assessment and Plan Plan: 1. Patella fracture status post ORIF with no postop complications. Continue current pain management. Patient is scheduled for discharge later today. 2. Fibromyalgia under the care of dorcas Naidu. Continue Neurontin. 3. Hypothyroidism. Continue levothyroxine. 4. ADD. Continue Adderall. 5. Generalized anxiety disorder. Continue Elavil, Xanax, Cymbalta. Discharge plan: Home Impression and plan of care have been directed as dictated by the signing physician. Gretchen Curry nurse practitioner acting as scribe for signing physician. Cc: Dr. Jeremi Ferreira Time with Patient: Greater than 30
--- NOTE | 2016-06-20 12:49 | P.PN ---
Subjective Principal diagnosis: Status post ORIF right displaced patellar fracture Patient is seen today resting in her hospital bed, she has family at bedside. She appears to be in no acute distress, her pain is well-controlled. She denies any headaches, lightheadedness, chest pain, shortness of breath. Objective - Vital Signs Vital signs: Vital Signs Temp 98.1 F 06/20/16 06:10 Pulse 73 06/20/16 06:10 Resp 18 06/20/16 06:10 BP 108/68 06/20/16 06:10 Pulse Ox 96 06/20/16 06:10 Intake & Output 06/19/16 06/20/16 06/20/16 18:59 06:59 18:59 Intake Total 1051 1810 Output Total 10 Balance 1041 1810 Weight 65.77 kg Intake: IV 1051 10 Oral 1800 Output: Estimated Blood Loss 10 Other: Voiding Method Toilet # Voids 4 - Exam Right lower extremity: Initial postoperative bandage removed, knee immobilizer removed for the time being. Incisions clean, dry and intact. Calf is soft, no tenderness with palpation. Plantar flexion, dorsiflexion, EHL, FHL are intact. Sensory exam to light touch is intact, dorsal pedis pulses 2+ - Labs CBC & Chem 7: 06/20/16 06:35 Labs: Abnormal Lab Results - Last 24 Hours (Table) 06/20/16 Range/Units 06:35 WBC 14.5 H (3.8-10.6) k/uL Hgb 10.4 L (11.4-16.0) gm/dL Hct 32.5 L (34.0-46.0) % MCV 77.1 L (80.0-100.0) fL MCH 24.8 L (25.0-35.0) pg Neutrophils # 12.3 H (1.3-7.7) k/uL Assessment and Plan Plan: Assessment: 1. Postop day #1 status post ORIF right patellar fracture Plan: 1. Pain control, patient will be discharged home on oral medication 2. Nonweightbearing right lower extremity, utilize a walker or crutches and knee immobilizer 3. Wound care was discussed with patient 4. GI and DVT prophylaxis, she'll resume her aspirin 325 mg twice a day 5. Patient be discharged home today Time with Patient: Less than 30
--- NOTE | 2016-06-20 12:53 | P.DS ---
Providers Date of admission: 06/20/16 02:17 Expected date of discharge: 06/20/16 Attending physician: Edd Barnes Consults: 06/19/16 19:41 Consult Physician Routine Consulting Provider: Jeremi Ferreira Consult Reason/Comments: Medical Management Do you want consulting provider notified?: Yes Primary care physician: Jeremi Ferreira [facility] Course: Date of admission: 06/19/2016 Date of discharge: 06/20/2016 Admission diagnosis: Status post ORIF right patellar fracture Discharge diagnosis: Same Attending physician: Dr. Barnes Surgical procedures: Open reduction internal fixation right patellar fracture Brief history: Patient is a 46-year-old femalewho was seen and evaluated in the outpatient setting by Dr. Barnes. Patient recently had an ORIF procedure done on the right patella for a fracture. While being evaluated in the outpatient setting, x-rays demonstrated that the fracture had displaced significantly. She was scheduled for a ORIF of the right patellar fracture. Hospital course: Details of patient's surgery can be found in operative report. Patient tolerated the procedure well and was subsequently transported to orthopedic floor. Patient's orthopeidc and medical care was provided daily. Patient had daily laboratory tests performed for evaluation of overall blood counts. Patient had daily physical therapy to include strengthening range of motion as well as education with walker ambulation. Patient was noted to have a relatively uneventful postoperative course. Patient reported satisfactory pain control with oral pain medications by postoperative day 0. Patient showed satisfactory progress with physical therapy. Patient moved steadily through the program and had no difficulty meeting the goals by postoperative day 1. Given patient's otherwise satisfactory course and having met physical therapy goals, plan is to discharge patient home on postoperative day 1. Discharge condition/disposition: Patient will be discharged home in stable condition. Discharge medications: Instructions are given on resumption of patient's normal daily medications per primary care recommendation, in addition patient will be prescribed no new medications Discharge instructions: 1. Wound care and infection precautions, keep incision dry and covered while showering, no lotions, creams, moisturizers. No soaking, tubs, pools, hottubs. Do not scrub over the incision. 2. Nonweightbearing right lower extremity, utilize hinge knee brace and crutches 3. Ice and elevate when necessary. Do not exceed 20 minutes per hour with ice pack. 4. Pain meds and anticoagulants per prescription. 5. Pain medication has potential to cause constipation. Increase oral fluid and fiber intake. Contact primary care provider if you have not had a bowel movement within 48 hours after discharge 6. No anti-inflammatory medication until discussed at first post operative visit, this including Motrin, Aleve, Mobic, Diclofenac 7. Follow up in office at 2 weeks postop with Jose Rafael Gibbs PA-C 8. Follow up with your primary care doctor 7-10 days after discharge. 9. Contact [facility] with any questions, . Procedures: Open reduction internal fixation right patella fracture Patient Condition at Discharge: Good Plan - Discharge Summary Discharge Medication List Amitriptyline HCl [Elavil] 30 mg PO HS 03/17/16 [History] DULoxetine HCL [Cymbalta] 60 mg PO DAILY 03/17/16 [History] Gabapentin [Neurontin] 600 mg PO HS 03/17/16 [History] Levothyroxine Sodium [Synthroid] 25 mcg PO DAILY 03/17/16 [History] Dextroamphetamine/Amphetamine [Adderall] 20 mg PO DAILY PRN 05/16/16 [History] Aspirin 325 mg PO BID #30 tab 05/18/16 [Rx] ALPRAZolam [Xanax] 0.5 mg PO TID PRN 06/16/16 [History] Calcium Carbonate [Calcium] 1,200 mg PO DAILY 06/16/16 [History] Multivitamins, Thera [Multivitamin (formulary)] 1 tab PO DAILY 06/16/16 [History ] Psyllium Husk 100% [Metamucil Packet] 6 gm PO HS 06/16/16 [History] HYDROcodone/APAP 7.5-325MG [[place] 7.5] 1 - 2 tab PO Q6HR PRN 06/20/16 [History] Follow up Appointment(s)/Referral(s): Manjit Gibbs PAC [PHYSICIAN ANDROID SOFTWARE ENGINEER] - 2 Weeks Jeremi Ferreira DO [Primary Care Provider] - 1 Week Activity/Diet/Wound Care/Special Instructions: Orthopedic Discharge Instructions: 1. Non weightbearing right leg 2. Utilize knee immobilizer 3. Do not remove tape over incision, keep dry and covered while showering 4. Pain medication as needed 5. Aspirin 325 mg once a day for DVT prophylaxis 6. Follow-up at [facility] in 2 weeks Discharge Disposition: HOME SELF-CARE
[2016-06-20] MEDS: traMADol 50 MG TAB PO SCH (12:57)
[2016-06-20 15:46] VITALS: BP 118/76; PULSE 75; RESP 16; TEMP 97.7
== END 2016-06-20 13:47 | disposition home or self-care (01) ==
LOC: OR 14:08 → 6PED 18:19 → OR 06-20 02:17
PROVIDERS: ADMIT Orthopaedic Surgery; ATTEND Orthopaedic Surgery
DX: S82.001A Unspecified fracture of right patella, initial encounter for closed fracture (principal); W19.XXXA Unspecified fall, initial encounter; E03.9 Hypothyroidism, unspecified; F90.9 Attention-deficit hyperactivity disorder, unspecified type; M79.7 Fibromyalgia; Z79.899 Other long term (current) drug therapy; Z96.651 Presence of right artificial knee joint
CPT/HCPCS: 81025; 85025; 73560; 27524; G0378; C1713; C1772; J2250; J1100; J0690 ×3; J2405; J3010; J1650; J2704; 96372

== ENCOUNTER → 2016-07-25 | Outpatient (CLI) | payer BC ==
[2016-07-25 15:19] LABS: Basophils # (A) 0.1 k/uL (0-0.2); Basophils % (A) 1 %; Eosinophils # (A) 0.1 k/uL (0-0.7); Eosinophils % (A) 1 %; HCT 30.4 % (34.0-46.0); Hypochromasia Marked; Luc # (Auto) 0.18; Luc % (Auto) 2; Lymphocytes # (A) 1.4 k/uL (1.0-4.8); Lymphocytes % (A) 17 %; MCH 21.9 pg (25.0-35.0); MCHC 28.8 g/dL (31.0-37.0); Mean Platelet Volume 6.1; Microcytosis Slight; Monocytes # (A) 0.6 k/uL (0-1.0); Monocytes % (A) 7 %; Neutrophils # (A) 6.2 k/uL (1.3-7.7); Neutrophils % (A) 72 %; RDW 15.5 % (11.5-15.5); WBC 8.5 k/uL (3.8-10.6); WBC (Perox) 8.63
[2016-07-25 15:22] LABS: HGB 8.7 gm/dL (11.4-16.0)
== END | disposition home or self-care (01) ==
LOC: LABPAT 14:50
PROVIDERS: ATTEND Orthopaedic Surgery
DX: Z01.812 Encounter for preprocedural laboratory examination (principal)
CPT/HCPCS: 36415; 85025

== ENCOUNTER 2016-07-26 08:52 | Inpatient (IN) | payer BC ==
--- NOTE | 2016-07-25 18:59 | HP ---
DATE OF ADMISSION: 07/26/2016 Loyda Madsen is a 46-year-old patient seen with right knee incisional infection after previously having undergone open reduction internal fixation of a patella fracture. She also had evidence of some displacement of the fracture itself. I recommended at this point incision, irrigation and debridement with possible revision of the patella fracture. I reviewed the procedure, risks, complications, benefits and recovery. She was agreeable. Consent was obtained. Her past medical history is hypothyroidism, depression and anxiety. Past surgical history ORIF right knee and patellofemoral arthroplasty, ORIF right knee patella fracture. DAILY MEDICATIONS: 1. Adderall. 2. Amitriptyline. 3. Baclofen. 4. ( ) 5. Cymbalta. 6. Gabapentin. 7. Levothyroxine. ALLERGIES: NONE REPORTED. SOCIAL HISTORY: Patient denies current tobacco use. PHYSICAL EVALUATION OF THE RIGHT KNEE: She has evidence of dehiscence of the anterior incision. There is some permanent drainage present. There is no absolute evidence for any effusion. She has about a 30-degree extension deficit and able to flex to 50 degrees with no significant pain. Emmanuel and Arnoldo are negative. Distal neurovascular exam is intact. Right knee radiographs revealed a previous open reduction and internal fixation of patella fracture with some displacement of the fracture. IMPRESSION: Right knee incisional infection with history of previous open reduction internal fixation of patella. PLAN: Irrigation and debridement, right knee wound with possible revision ORIF, right knee patella fracture.
[~2016-07-26 08:52] MED LIST changes: -ceFAZolin 1,000 MG in DEXTROSE/WATER 1 50ML.BAG IV ONE; +ceFAZolin 2 GM in SODIUM CHLORIDE 0.9% 100 ML IVPB ONE
[2016-07-26] MEDS ORDERED: ONDANSETRON 4 MG/2 ML VIAL IVP ONE (09:30)
[2016-07-26] MEDS ORDERED: SCOPOLAMINE 1.5MG/72HR PATCH TRANSDERM ONE (09:30)
[2016-07-26] MEDS ORDERED: MIDAZOLAM 2 MG/2 ML VIAL IV PRN ×2 (09:30→10:11)
[2016-07-26] MEDS ORDERED: DEXAMETHASONE SOD PHOSPHATE 10 MG/ML 1 ML VIAL IV ONE (09:30)
[2016-07-26] MEDS ORDERED: LIDOCAINE 1% 20 ML VIAL (10MG/ML) FOR IV START INTRADERMA PRN ×2 (09:30→10:11)
[2016-07-26] MEDS: LACTATED RINGERS 1,000 ML IV SCH ×3 (09:49→14:45)
[2016-07-26] MEDS ORDERED: fentaNYL (PF) 50 MCG/ML 2 ML AMP IV ONE (09:59)
[2016-07-26] MEDS ORDERED: FAMOTIDINE 20 MG/2 ML VIAL IV PRN (10:11)
[2016-07-26] MEDS ORDERED: ONDANSETRON 4 MG/2 ML VIAL IVP PRN ×2 (10:11→12:29)
[2016-07-26] MEDS ORDERED: HYDROmorphone (PF) 1 MG/ML ONE (10:16)
[2016-07-26] MEDS ORDERED: SUCCINYLCHOLINE CHLORIDE 100 MG/5 ML SYR IV ONE (10:16)
[2016-07-26] MEDS ORDERED: fentaNYL (PF) 50 MCG/ML 2 ML AMP ONE (10:16)
[2016-07-26] MEDS ORDERED: MIDAZOLAM 2 MG/2 ML VIAL ONE (10:16)
[2016-07-26] MEDS ORDERED: LIDOCAINE 1% INJ 10MG/ML (20 ML MDV) ONE (10:16)
[2016-07-26] MEDS ORDERED: ePHEDrine 50 MG/ML 1 ML AMP ONE (10:16)
[2016-07-26] MEDS ORDERED: PROPOFOL 10 MG/ML 20 ML VIAL IV ONE (10:16)
[2016-07-26] MEDS ORDERED: ceFAZolin 3,000 MG in SODIUM CHLORIDE 0.9% IRRIGATIO 3,000 ML IRRIGATION ONE (10:47)
[2016-07-26] MEDS: HYDROmorphone 1 MG/ML 1 ML SYRINGE IVP PRN ×8 (12:28→21:48)
[2016-07-26] MEDS ORDERED: NALOXONE 0.4 MG/ML 1 ML VIAL IV PRN (12:29)
[2016-07-26] MEDS ORDERED: MAGNESIUM HYDROXIDE 2,400 MG/10 ML CUP PO PRN (12:29)
[2016-07-26] MEDS ORDERED: HYDROcodone/APAP 10-325MG 1 EACH TAB PO PRN ×2 (12:29)
[2016-07-26] MEDS ORDERED: HYDROcodone/APAP 7.5-325MG 1 EACH TAB PO PRN ×2 (12:33→15:56)
--- NOTE | 2016-07-26 12:37 | P.OP ---
Date of Procedure: 07/26/16 Preoperative Diagnosis: 1. Right knee incisional infection with history of previous open reduction internal fixation patella fracture 2. History of right knee patellofemoral joint arthroplasty Postoperative Diagnosis: 1. Infected right knee patellofemoral joint arthroplasty 2. Failed open reduction internal fixation right knee patella fracture Procedure(s) Performed: 1. Extraction right knee infected patellofemoral joint arthroplasty 2. Removal failed hardware right knee patella 3. Irrigation debridement right knee Implants: Anesthesia: GETA Surgeon: Edd Barnes Meteorologist Liaison #1: Manjit Gibbs Estimated Blood Loss (ml): 50 Pathology: none sent Condition: stable Disposition: PACU Indications for Procedure: 46-year-old patient who was seen with what appeared to be an incisional infection of a previous revision open reduction and internal fixation patella fracture with history of a patellofemoral joint reconstruction done several years ago. There was failure of the fixation of the patella and obvious incisional infection possibly deeper. I recommended incision with irrigation and debridement . I reviewed possible revision of the hardware and also discussed with the patient that if the infection was deep and involved the prosthesis the components may have to be removed in order to eradicate the infection. I reviewed the procedure, risks, complications and recovery. Patient was agreeable. Operative Findings: See description of procedure Description of Procedure: The patient was taken to the operative suite. The patient underwent a general anesthetic by the department of anesthesia. A well-padded tourniquet was placed proximal right thigh. The right lower extremity was prepped and draped in the normal sterile orthopedic fashion. The extremity was elevated and tourniquet insufflated to 350. An incision was now made along the previous cicatrix sharply through skin. Dissection was taken down to the extensor mechanism. We noted the hardware superficially of the patella was some obvious displacement of the fracture and some fragmentation superiorly. It looks like the superior and lateral patella had fragmented. This was a resurfaced patella with only a very thin sliver of bone left. At this point I did note obvious communication into the joint via an eroded area of the distal quadriceps tendon up on further exploring this there was obvious purulent-appearing fluid in the actual joint. We went ahead and obtained cultures of this. I now performed an arthrotomy. I noted. The material within the actual joint indicating a deep infection. I debrided some tissue around the area. At this point given the deep infection and timeframe I felt that extracting the prosthesis would be the only way to give us the opportunity to eradicate this deep infection. At this point I used a thin sagittal saw getting underneath the femoral sulcus component and was able to extract that with minimal bone loss. I made sure to remove any residual cement. All 4 material had been completely eradicated from the femoral sulcus area. I turned my attention towards the patella. The patella button actually at this point with a little bit of effort came out easily detaching from the patella itself. The superior lateral portion patella had broken into multiple small fragments at this point these were removed. I did have one fragment measuring 2 x 3 cm that I wanted to try to keep and I made sure to remove any residual cement material from that. At this point we used, irresept and then irrigated the wound out with pulse lavage mechanical irrigation. I then again made sure to remove any abnormal looking tissue. We then irrigated the wound with pulse lavage mechanical irrigation again. I used antibiotic cement to fill in the defect of the femoral sulcus to try to avoid any scarring of the tendon area. I inserted a drain exiting out superior laterally. I repaired the extensor mechanism with #3 Vicryl. We had a good repair there. The subcu soft tissues were repaired in layers with 2-0 Vicryl and the skin was approximated with nylon suture. The drain was connected to Hemovac. Sterile dressings were applied and the tourniquet was deflated with good immediate capillary refill the extremity noted. Sterile web roll followed by Jordan bandages was applied. The patient was awakened and transferred to recovery stable condition.
[2016-07-26] MEDS: MIDAZOLAM 2 MG/2 ML VIAL IVP ONE ×2 (12:50→12:56)
[2016-07-26] MEDS: HYDROcodone/APAP 7.5-325MG 1 EACH TAB PO PRN ×2 (14:34→21:10)
[2016-07-26 15:38] VITALS: BMI 25.0
[2016-07-26] MEDS: ALPRAZolam 0.5 MG TAB PO PRN (16:08)
[2016-07-26] MEDS: ceFAZolin 2 GM in SODIUM CHLORIDE 0.9% 100 ML IVPB SCH (16:08)
--- NOTE | 2016-07-26 19:10 | P.CONS ---
History of Present Illness - Reason for Consult Consult date: 07/26/16 Medical management Requesting physician: Edd Barnes - Chief Complaint Infected right patellofemoral joint arthroplasty post hardware removal. - History of Present Illness This is a 46-year-old female patient of Dr. Jeremi Ferreira with a past medical history of fibromyalgia under the care of Dr. De León, osteoarthritis , hypothyroidism. Patient states that she fell on May 10 and sustained a right patella fracture. She underwent open reduction and internal fixation of the right knee on May [address] Barnes. Subsequently, she returned to [facility] on 06/19/2016 and underwent open reduction internal fixation. Patient has had no postop complications. She states she is able to walk with crutches and be nonweightbearing on the right leg. She also has a knee immobilizer. Patient stated that she has been doing fine till recently when she developped to have increased drainage from her wound and was seen by the PA at office and was recently placed on ABX in the form of Cephalexine 500 mg po qid and was following up with who recommended for her to have extraction of the patellofemoral joint which was done today and she was started on IV antibiotics and was seen by Dr. Nunez who recommended PICC line and IV ABX for sometimes. Patient is sitting up in bed very emotional and complaining of a lot of pain in the right knee since she did not have femoral block this time. Review of Systems Constitutional: Reports chronic pain, Denies anorexia, Denies chronic headaches , Denies lethargy, Denies malaise, Denies weakness, Denies weight gain, Denies weight loss Eyes: denies as per HPI, denies blurred vision, denies bulging eye, denies decreased vision Ears: deny: decreased hearing Ears, nose, mouth and throat: Denies dysphagia, Denies neck lump, Denies swelling in throat, Denies sore throat Cardiovascular: Denies chest pain, Denies decreased exercise tolerance, Denies dyspnea on exertion, Denies paroxysmal nocturnal dyspnea, Denies phlebitis, Denies rapid heart beat, Denies shortness of breath, Denies syncope Respiratory: Denies congestion, Denies cough, Denies cough with sputum, Denies home oxygen, Denies sleep apnea, Denies snoring Gastrointestinal: Denies abdominal pain, Denies bloating, Denies BRBPR, Denies heartburn, Denies melena, Denies nausea, Denies vomiting Genitourinary: Denies dysuria, Denies nocturia Menstruation: Reports period normal Musculoskeletal: Denies myalgias Musculoskeletal: right: knee pain, knee stiffness, knee swelling, absent: ankle pain, ankle stiffness, ankle swelling, elbow pain, elbow stiffness, elbow swelling, foot pain, foot stiffness, foot swelling, hand pain, hand stiffness, hand swelling, hip pain, hip stiffness, hip swelling, shoulder pain, shoulder stiffness, shoulder swelling, wrist pain, wrist stiffness, wrist swelling Integumentary: Denies pruritus, Denies rash Neurological: Denies numbness, Denies weakness Psychiatric: Reports anxiety, Denies depression Endocrine: Denies fatigue, Denies weight change Past Medical History Past Medical History: Fibromyalgia, Osteoarthritis (OA), Thyroid Disorder Additional Past Medical History / Comment(s): HX OF FX RIGHT KNEE WITH SURGERY AND RE-INJURED KNEE- WEARING BRACE AND USING CRUTCHES. History of Any Multi-Drug Resistant Organisms: None Reported Past Surgical History: Cholecystectomy, Joint Replacement, Tubal Ligation Additional Past Surgical History / Comment(s): LEFT KNEE ARTHROSCOPIC , PARTIAL RIGHT KNEE REPLACEMENT, ORIF RIGHT KNEE FX (05/17/16 and 06/19/2016) Past Anesthesia/Blood Transfusion Reactions: Postoperative Nausea & Vomiting ( PONV) Past Psychological History: ADD/ADHD, Anxiety Smoking Status: Never smoker Past Alcohol Use History: Rare Additional Past Alcohol Use History / Comment(s): Patient is a lifelong nonsmoker. She denies any other street drug use. She does not have a medical marijuana card. He lives at home with her children 18 and 20 years old. Past Drug Use History: Marijuana Additional Drug Use History / Comment(s): OCCASIONAL MARIJUANA USE. - Past Family History Mother Family Medical History: Cancer Additional Family Medical History / Comment(s): Mother is alive at age 72 with history of hysterectomy in her 40s for noncancerous reason. Sister(s) Family Medical History: Cancer, Rheumatoid Arthritis (RA) Additional Family Medical History / Comment(s): Patient has one half sister with rheumatoid arthritis and one half-sister with history of bone cancer status post bone marrow transplant. Father Additional Family Medical History / Comment(s): Mother at age 80 from heart failure with history of coronary artery disease status post 4 vessel CABG. Medications and Allergies Home Medications Medication Instructions Recorded Confirmed Type Amitriptyline HCl [Elavil] 30 mg PO HS 03/17/16 07/26/16 History DULoxetine HCL [Cymbalta] 60 mg PO DAILY 03/17/16 07/26/16 History Gabapentin [Neurontin] 600 mg PO HS 03/17/16 07/26/16 History Levothyroxine Sodium [Synthroid] 25 mcg PO DAILY 03/17/16 07/26/16 History Dextroamphetamine/Amphetamine 20 mg PO DAILY PRN 05/16/16 07/26/16 History [Adderall] ALPRAZolam [Xanax] 0.5 mg PO TID PRN 06/16/16 07/26/16 History Calcium Carbonate [Calcium] 1,200 mg PO DAILY 06/16/16 07/26/16 History Multivitamins, Thera [Multivitamin 1 tab PO DAILY 06/16/16 07/26/16 History (formulary)] Psyllium Husk 100% [Metamucil 6 gm PO HS 06/16/16 07/26/16 History Packet] HYDROcodone/APAP 7.5-325MG [[place] 1 - 2 tab PO Q6HR PRN 06/20/16 07/26/16 History 7.5] Cephalexin [Keflex] 500 mg PO Q6HR 07/26/16 07/26/16 History Allergies Allergy/AdvReac Type Severity Reaction Status Date / Time No Known Allergies Allergy Verified 06/16/16 13:46 Physical Exam Vitals: Vital Signs Temp Pulse Pulse Resp BP BP Pulse Ox 07/26/16 18:00 82 110/72 96 07/26/16 17:00 76 110/78 96 07/26/16 16:00 78 106/72 97 07/26/16 15:30 118/65 97 07/26/16 15:17 90 07/26/16 15:00 96.8 F L 14 103/61 96 07/26/16 14:34 90 126/81 07/26/16 13:31 86 16 142/67 97 07/26/16 13:16 92 16 143/67 97 07/26/16 13:02 96 20 153/68 97 07/26/16 12:42 103 H 20 155/104 96 07/26/16 12:27 98 F 117 H 20 140/109 94 L 07/26/16 09:37 98.5 F 77 16 104/60 96 Intake and Output 07/26/16 07/26/16 07/26/16 06:59 14:59 22:59 Intake Total 1602 Output Total 50 Balance 1552 Intake: IV 1602 Output: Estimated Blood Loss 50 Other: # Voids 1 Weight 66.075 kg Patient Weight 07/27/16 06:59 Weight 66.075 kg - Constitutional General appearance: no acute distress, thin - EENT Eyes: anicteric sclerae, EOMI, PERRLA, no ptosis, no scleral icterus, normal appearance ENT: hearing grossly normal, NA/AT, normal oropharynx, no thrush Ears: bilateral: normal - Neck Neck: no lymphadenopathy, normal ROM, no rigidity, no stridor, no thyromegaly Carotids: bilateral: upstroke normal Thyroid: bilateral: normal size - Respiratory Respiratory: bilateral: CTA, negative: diminished, dullness, rales, rhonchi, wheezing, prolonged expiration, prolonged inspiration - Cardiovascular Rhythm: regular Heart sounds: normal: S1, S2 Abnormal Heart Sounds: no systolic murmur, no diastolic murmur, no rub, no S3 Gallop, no S4 Gallop, no click - Gastrointestinal General gastrointestinal: normal bowel sounds, soft, no splenomegaly, no tenderness, no umbilical hernia, no ventral hernia - Integumentary Integumentary: normal, normal turgor - Neurologic Neurologic: CNII-XII intact - Musculoskeletal Musculoskeletal: strength equal bilaterally - Psychiatric Psychiatric: A&O x's 3, appropriate affect, intact judgment & insight Results Labs: Microbiology - Last 24 Hours (Table) 07/26/16 10:43 Anaerobic Culture - Preliminary Knee - Right 07/26/16 10:43 Wound Culture - Preliminary Knee - Right Assessment and Plan Plan: Assessment and plan: 1. Infected righ patellofemoral joint post removal of the hardware . continue with IV ABX per ID recommendations,obtain blood cultures and fluid cultures, continue with current pain management as oulined by orthopedic surgery, will add Cyclobenzaprine 10 mg orally tid as needed, also will continue with incentive spirometer to reduce the incidence of the atelectasis and hospital acquired pneumonia.will continue with DVT prophylaxis with lovenox till after PICC line is . 2. Fibromyalgia under the care of dorcas Naidu. Continue Neurontin 600 mg po qhs, cymbalta 60 mg orally daily and elavil 30 mg orally daily. 3. Hypothyroidism. Continue levothyroxine 25 mcg orally daily. 4. ADD. Hold off Adderall. 5. Generalized anxiety disorder. Continue Xanax 0.5 mg po tid prn. 6. Constipation. will continue with Metamucil 6 mg orall daily and Senokot. 7. DVT prophylaxis. will continue with Knee-high Dick hose and Lovenox 30 mg SC q 12 h. 8. GI Prophylaxis. will continue with Pepcid 20 mg orall daily. 9. Thank you for allowing me to participate in the care of your patient , we will be more than happy to follow her up along with you during her hospital stay.
[2016-07-26] MEDS: PSYLLIUM HUSK 100% 6 GM PACKET PO SCH (19:23)
--- NOTE | 2016-07-26 20:47 | P.CONS ---
History of Present Illness - Reason for Consult Consult date: 07/26/16 - Chief Complaint Infection right knee - History of Present Illness Pleasant 46-year-old female who relates that she has advanced degenerative joint disease with osteoarthritis. 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 She developed extensive disease to her right knee and had a unicompartmental knee replacement. That was going quite well. However May 10 she suffered a fall onto the knee. She did have a patellar fracture. She was taking by Dr. Barnes to the operating room for open reduction internal fixation of that right knee fracture. Apparently after several weeks there was some slippage of the fixation. She was again taken to the operating room on 06/19/2016. Further fixation was performed to the knee. Now the patient presents to the hospital with a significant change in her status. The knee becoming consuming more painful. Development of some drainage and difficulty with range of motion and increasing amounts of her discomfort. She was evaluated by orthopedics and there was concern for deep infection. Cultures taken the operating room today. The hardware was removed. Defects were filled in with antibiotic cement. And she was closed. Infectious diseases consultation regarding antibiotic therapy for home. Review of Systems HEENT:Denies headache or acute visual change. Denies sinus or mouth discomforts. Denies neck stiffness or pain. Denies significant oral cavity pain. Denies difficulty on swallowing. Lungs: Denies significant shortness of breath, cough, sputum production, or hemoptysis. Cardiovascular: Denies significant shortness of breath, chest pain, chest wall pain, orthopnea, dyspnea on exertion, syncope Gastrointestinal:Denies nausea, vomiting, diarrhea, constipation, hematemesis, melena, hematochezia. No no significant change of bowel habit noticed. Musculoskeletal: as per the HPI Skin: Denies new rash or lesions. No new ulcers or wounds are related.. Neuro: Denies headache or visual change. Denies any new onset weakness or difficulty with ambulation. Denies falls or seizures. Psychiatric:Denies anxiety or depression. Endocrine: Denies significant fatigue, denies significant weight loss or weight gain. Past Medical History Past Medical History: Fibromyalgia, Osteoarthritis (OA), Thyroid Disorder Additional Past Medical History / Comment(s): HX OF FX RIGHT KNEE WITH SURGERY AND RE-INJURED KNEE- WEARING BRACE AND USING CRUTCHES. History of Any Multi-Drug Resistant Organisms: None Reported Past Surgical History: Cholecystectomy, Joint Replacement, Tubal Ligation Additional Past Surgical History / Comment(s): LEFT KNEE ARTHROSCOPIC , PARTIAL RIGHT KNEE REPLACEMENT, ORIF RIGHT KNEE FX (05/17/16 and 06/19/2016) Past Anesthesia/Blood Transfusion Reactions: Postoperative Nausea & Vomiting ( PONV) Past Psychological History: ADD/ADHD, Anxiety Additional Psychological History / Comment(s): . Currently unable to work due to her knee problems. Lifelong nonsmoker but does smoke marijuana. Children 18 and 20 live at home with her. No experience. No international travel. No animal exposures Smoking Status: Never smoker Past Alcohol Use History: Rare Additional Past Alcohol Use History / Comment(s): Patient is a lifelong nonsmoker. She denies any other street drug use. She does not have a medical marijuana card. He lives at home with her children 18 and 20 years old. Past Drug Use History: Marijuana Additional Drug Use History / Comment(s): OCCASIONAL MARIJUANA USE. - Past Family History Mother Family Medical History: Cancer Additional Family Medical History / Comment(s): Mother is alive at age 72 with history of hysterectomy in her 40s for noncancerous reason. Sister(s) Family Medical History: Cancer, Rheumatoid Arthritis (RA) Additional Family Medical History / Comment(s): Patient has one half sister with rheumatoid arthritis and one half-sister with history of bone cancer status post bone marrow transplant. Father Additional Family Medical History / Comment(s): Mother at age 80 from heart failure with history of coronary artery disease status post 4 vessel CABG. Medications and Allergies Home Medications and Allergies Comment(s): Current Medications Hydrocodone Bitart/Acetaminophen ([place] 7.5-325) 1 each PO Q6H PRN PRN Reason: Moderate Pain Hydrocodone Bitart/Acetaminophen ([place] 7.5-325) 2 each PO Q6H PRN PRN Reason: Severe Pain Last Admin: 07/26/16 14:34 Dose: 2 each Alprazolam (Xanax) 0.5 mg PO TID PRN PRN Reason: Anxiety Last Admin: 07/26/16 16:08 Dose: 0.5 mg Amitriptyline HCl (Elavil) 30 mg PO HS [facility] Calcium Carbonate/Glycine (Tums) 1,000 mg PO DAILY [facility] Cyclobenzaprine HCl (Flexeril) 10 mg PO TID PRN PRN Reason: Muscle Spasm Duloxetine HCl (Cymbalta) 60 mg PO DAILY [facility] Enoxaparin Sodium (Lovenox) 30 mg SQ Q12HR [facility] Famotidine (Pepcid) 20 mg IV ONCE PRN PRN Reason: Reflux Prophylaxis Stop: 07/27/16 10:12 Famotidine (Pepcid) 20 mg PO DAILY [facility] Gabapentin (Neurontin) 600 mg PO HS [facility] Hydromorphone HCl (Dilaudid) 1 mg IVP Q3HR PRN PRN Reason: Pain Scale 7 to 10 Last Admin: 07/26/16 18:26 Dose: 1 mg Lactated Ringer's (Lactated Ringers) 1,000 mls @ 20 mls/hr IV .Q24H [facility] Last Admin: 07/26/16 14:24 Dose: Not Given Cefazolin Sodium 2 gm/ Sodium (Chloride) 100 mls @ 100 mls/hr IVPB Q8HR [facility] Stop: 07/27/16 00:59 Last Admin: 07/26/16 16:08 Dose: 100 mls/hr Levothyroxine Sodium (Synthroid) 25 mcg PO DAILY@0630 [facility] Lidocaine HCl (.Xylocaine 1% Inj (10mg/Ml) For Iv Start) 0.1 ml INTRADERMA PER PROTOCOL PRN PRN Reason: IV Start Last Admin: 07/26/16 09:50 Dose: 0.1 ml Lidocaine HCl (.Xylocaine 1% Inj (10mg/Ml) For Iv Start) 0.1 ml INTRADERMA PER PROTOCOL PRN PRN Reason: IV Start Magnesium Hydroxide (Milk Of Magnesia) 2,400 mg PO DAILY PRN PRN Reason: Constipation Multivitamins (Theragran) 1 each PO DAILY [facility] Naloxone HCl (Narcan) 0.2 mg IV Q2M PRN PRN Reason: Opioid Reversal Ondansetron HCl (Zofran) 4 mg IVP Q8HR PRN PRN Reason: Nausea And Vomiting Psyllium Hydrophilic Mucilloid (Metamucil) 6 gm PO HS [facility] Last Admin: 07/26/16 19:23 Dose: 6 gm Senna/Docusate Sodium (Senokot-S) 2 each PO HS [facility] Tramadol HCl (Ultram) 50 mg PO Q6H PRN PRN Reason: Mild to Moderate Pain Home Medications Medication Instructions Recorded Confirmed Type Amitriptyline HCl [Elavil] 30 mg PO HS 03/17/16 07/26/16 History DULoxetine HCL [Cymbalta] 60 mg PO DAILY 03/17/16 07/26/16 History Gabapentin [Neurontin] 600 mg PO HS 03/17/16 07/26/16 History Levothyroxine Sodium [Synthroid] 25 mcg PO DAILY 03/17/16 07/26/16 History Dextroamphetamine/Amphetamine 20 mg PO DAILY PRN 05/16/16 07/26/16 History [Adderall] ALPRAZolam [Xanax] 0.5 mg PO TID PRN 06/16/16 07/26/16 History Calcium Carbonate [Calcium] 1,200 mg PO DAILY 06/16/16 07/26/16 History Multivitamins, Thera [Multivitamin 1 tab PO DAILY 06/16/16 07/26/16 History (formulary)] Psyllium Husk 100% [Metamucil 6 gm PO HS 06/16/16 07/26/16 History Packet] HYDROcodone/APAP 7.5-325MG [[place] 1 - 2 tab PO Q6HR PRN 06/20/16 07/26/16 History 7.5] Cephalexin [Keflex] 500 mg PO Q6HR 07/26/16 07/26/16 History Allergies Allergy/AdvReac Type Severity Reaction Status Date / Time No Known Allergies Allergy Verified 06/16/16 13:46 Physical Exam Vitals: Vital Signs Temp Pulse Pulse Resp BP BP Pulse Ox 07/26/16 18:00 82 110/72 96 07/26/16 17:00 76 110/78 96 07/26/16 16:00 78 106/72 97 07/26/16 15:30 118/65 97 07/26/16 15:17 90 07/26/16 15:00 96.8 F L 14 103/61 96 07/26/16 14:34 90 126/81 07/26/16 13:31 86 16 142/67 97 07/26/16 13:16 92 16 143/67 97 07/26/16 13:02 96 20 153/68 97 07/26/16 12:42 103 H 20 155/104 96 07/26/16 12:27 98 F 117 H 20 140/109 94 L 07/26/16 09:37 98.5 F 77 16 104/60 96 Intake and Output 07/26/16 07/26/16 07/26/16 06:59 14:59 22:59 Intake Total 1602 Output Total 50 Balance 1552 Intake: IV 1602 Output: Estimated Blood Loss 50 Other: # Voids 1 Weight 66.075 kg Patient Weight 07/27/16 06:59 Weight 66.075 kg pleasant healthy 46-year-old woman who is in some discomfort from her recent surgery. HEENT: Anicteric conjunctiva are pink and moist nasal mucosa grossly intact without significant lesions, there is no thrush. Neck: The neck is supple without significant lymphadenopathy or thyromegaly. Lungs: Good bilateral air entry without significant crackles or wheezing. There is no significant bronchial sounds. There is no egophony or dullness. Heart: Regular rate and rhythm with an audible S1-S2, no S3 no S4. There is no significant murmur click or rub, PMI was nondisplaced. Abdomen: Positive bowel sounds soft and nontender without palpable masses or organomegaly. There was no guarding or rebound. Extremities: The upper extremities have excellent pulses they are symmetric, no significant petechiae or telangiectasia. No splinter hemorrhages were noted. the left lower extremity has no acute abnormality. The right knee shows evidence of recent surgical intervention. They just been a few hours extensive dressing is not removed because it is within 24 hours of surgery. Neuro: Awake alert oriented to person place and time. There are no acute new gross focal sensory motor deficits. Results Results: deep cultures are pending at this time Labs: Microbiology - Last 24 Hours (Table) 07/26/16 10:43 Anaerobic Culture - Preliminary Knee - Right 07/26/16 10:43 Wound Culture - Preliminary Knee - Right Assessment and Plan (1) Right patella fracture Status: Acute (2) Status post unicompartmental knee replacement, right Status: Acute (3) Infection and inflammatory reaction due to internal right knee prosthesis, initial encounter Narrative/Plan: 46-year-old female who has a history of significant degenerative disease to her right knee. His undergone a prior unicompartmental knee replacement. Earlier in the spring she suffered a fall and a fracture to the patella. She underwent repair. However difficulty with that occurred and she required further fixation. Now presents with evidence of a deep infection at that site. The hardware is been removed symptomatic segment has been placed to the area. For antibiotic therapy should be treated with vancomycin this point in time for the common usual pathogens while cultures are pending. We'll be requesting a PICC line to be placed in the arrangements for outpatient intravenous antibiotic therapy can be made. Local wound care will be determined by the surgeons at this point in time. Control seems to be adequate. Multivitamin with zinc is added we'll check her protein levels and supplement as needed. Status: Acute
[2016-07-26] MEDS: SENNOSIDES-DOCUSATE SODIUM 1 EACH TAB PO SCH (21:09)
[2016-07-26] MEDS: AMITRIPTYLINE HCL 10 MG TAB PO SCH (21:10)
[2016-07-26] MEDS: GABAPENTIN 300 MG CAP PO SCH (21:10)
[2016-07-26] MEDS: CYCLOBENZAPRINE 10 MG TAB PO PRN (21:12)
[2016-07-26] MEDS: ENOXAPARIN 30 MG/0.3 ML SYRINGE SQ SCH (21:42)
[2016-07-26 22:33] VITALS: RESP 16
[2016-07-27] MEDS: ceFAZolin 2 GM in SODIUM CHLORIDE 0.9% 100 ML IVPB SCH (00:03)
[2016-07-27] MEDS: HYDROmorphone 1 MG/ML 1 ML SYRINGE IVP PRN ×7 (01:24→23:26)
[2016-07-27] MEDS: HYDROcodone/APAP 7.5-325MG 1 EACH TAB PO PRN (03:40)
[2016-07-27] MEDS: traMADol 50 MG TAB PO PRN ×3 (04:34→18:33)
[2016-07-27] MEDS: LEVOTHYROXINE 25 MCG TAB PO SCH (06:09)
[2016-07-27] MEDS: ALPRAZolam 0.5 MG TAB PO PRN ×2 (07:52→17:27)
[2016-07-27] MEDS: ENOXAPARIN 30 MG/0.3 ML SYRINGE SQ SCH (07:54)
[2016-07-27] MEDS: CALCIUM CARBONATE 500 MG CHEWABLE PO SCH (07:54)
[2016-07-27] MEDS: MULTIVITAMINS, THERA 1 EACH TAB PO SCH (07:54)
[2016-07-27] MEDS: DULoxetine HCL 60 MG CAPSULE.DR PO SCH (07:54)
[2016-07-27] MEDS: FAMOTIDINE 20 MG TAB PO SCH (07:55)
[2016-07-27] MEDS: LACTATED RINGERS 1,000 ML IV SCH (07:57)
[2016-07-27 08:31] LABS: Basophils % (A) 0 %; CHCM 29.6; Eosinophils % (A) 1 %; HCT 28.1 % (34.0-46.0); HDW 3.11; HGB 8.4 gm/dL (11.4-16.0); Hypochromasia Marked; Luc # (Auto) 0.24; Luc % (Auto) 3; Lymphocytes # (A) 1.8 k/uL (1.0-4.8); Lymphocytes % (A) 19 %; MCH 22.3 pg (25.0-35.0); MCHC 29.9 g/dL (31.0-37.0); MCV 74.5 fL (80.0-100.0); Microcytosis Slight; Monocytes # (A) 0.8 k/uL (0-1.0); Monocytes % (A) 9 %; Neutrophils # (A) 6.6 k/uL (1.3-7.7); Neutrophils % (A) 69 %; RBC 3.77 m/uL (3.80-5.40); RDW 15.4 % (11.5-15.5); WBC 9.5 k/uL (3.8-10.6); WBC (Perox) 10.29
[2016-07-27 09:08] LABS: C Reactive Protein 83.2 mg/L (<10.0)
[2016-07-27] MEDS: CYCLOBENZAPRINE 10 MG TAB PO PRN ×2 (09:46→18:36)
[2016-07-27] MEDS ORDERED: IV VANCOMYCIN PER PHARMACY 1 EACH MISC MISCELLANE PRN (11:12)
[2016-07-27 11:39] LABS: Non-African American GFR(MDRD) >60 (>60 ml/min/1.73 sqM)
[2016-07-27] MEDS ORDERED: VANCOMYCIN 1,500 MG in SODIUM CHLORIDE 0.9% 250 ML IVPB ONE (12:30)
--- NOTE | 2016-07-27 13:20 | P.PN ---
Subjective Principal diagnosis: Status post I&D and hardware removal right knee Patient is seen today resting in her hospital bed, she appears comfortable. She has noted some pain about the knee. She is utilizing the knee immobilizer at this time. She denies any fevers or chills at this time. She denies any chest pain, shortness of breath, headaches. Objective - Vital Signs Vital signs: Vital Signs Temp 97.4 F L 07/27/16 07:00 Pulse 66 07/27/16 07:00 Resp 16 07/27/16 07:00 BP 123/71 07/27/16 07:00 Pulse Ox 98 07/27/16 07:00 Intake & Output 07/26/16 07/27/16 07/27/16 18:59 06:59 18:59 Intake Total 1602 540 Output Total 50 0 10 Balance 1552 540 -10 Weight 66.075 kg Intake: IV 1602 300 Lactated Ringers 1,000 ml 300 @ 60 mls/hr IV .[id number] [facility] Rx#:[id number] Oral 240 Output: Drainage 0 10 Right Knee 0 10 Estimated Blood Loss 50 Other: Voiding Method Toilet Toilet # Voids 1 2 - Exam Right lower extremity: Initial postoperative bandage was removed. Incision is clean, dry and intact. Sutures are in good position. The drain was removed from the leg. Calf is soft , no tenderness with palpation. Plantar flexion, dorsiflexion, EHL, FHL are intact. Sensory exam to light touch throughout the extremity. Dorsal pedis pulses 2+. - Labs CBC & Chem 7: 07/27/16 08:01 07/27/16 08:01 Labs: Abnormal Lab Results - Last 24 Hours (Table) 07/27/16 07/27/16 07/27/16 Range/Units 08:01 08:01 08:01 RBC 3.77 L (3.80-5.40) m/uL Hgb 8.4 L (11.4-16.0) gm/dL Hct 28.1 L (34.0-46.0) % MCV 74.5 L (80.0-100.0) fL MCH 22.3 L (25.0-35.0) pg MCHC 29.9 L (31.0-37.0) g/dL Plt Count 708 H (150-450) k/uL ESR 104 H (0-20) mm/hr C-Reactive Protein 83.2 H (<10.0) mg/L Prealbumin 10 L (18-36) mg/dL Microbiology - Last 24 Hours (Table) 07/26/16 10:43 Gram Stain - Preliminary Knee - Right Wound Culture - Preliminary 07/26/16 10:43 Anaerobic Culture - Preliminary Knee - Right 07/26/16 10:43 Gram Stain - Preliminary Knee - Right Wound Culture - Preliminary 07/26/16 10:43 Anaerobic Culture - Preliminary Knee - Right Assessment and Plan Plan: Assessment: 1. Postop day 1 status post I&D and removal hardware right knee Plan: 1. Pain control, continue use of oral medication, IV pain medication okay for breakthrough pain 2. Nonweightbearing right knee, utilize knee immobilizer 3. GI and DVT prophylaxis, continue Lovenox subcu. We'll hold tonight's dose and tomatoes dose due to placement of PICC line tomorrow 4. Await culture results 5. Infectious disease recommendation 6. Medical recommendations 7. Waiting for PICC line placement 8. Further recommendations to follow Time with Patient: Less than 30
--- NOTE | 2016-07-27 14:36 | P.PN ---
Subjective This is a 46-year-old female patient of Dr. Jeremi Ferreira with a past medical history of fibromyalgia under the care of Dr. De León, osteoarthritis , hypothyroidism. Patient states that she fell on May 10 and sustained a right patella fracture. She underwent open reduction and internal fixation of the right knee on May [address] Barnes. Subsequently, she returned to [facility] on 06/19/2016 and underwent open reduction internal fixation. Patient has had no postop complications. She states she is able to walk with crutches and be nonweightbearing on the right leg. She also has a knee immobilizer. Patient stated that she has been doing fine till recently when she developped to have increased drainage from her wound and was seen by the PA at office and was recently placed on ABX in the form of Cephalexine 500 mg po qid and was following up with who recommended for her to have extraction of the patellofemoral joint which was done today and she was started on IV antibiotics and was seen by Dr. Nunez who recommended PICC line and IV ABX for sometimes. Patient is sitting up in bed very emotional and complaining of a lot of pain in the right knee since she did not have femoral block this time. 07/27:patient has been seen by Dr. Nunez with recommendations for IV antibiotics. PICC line is ordered and Lovenox has been placed on hold. Wound cultures on this admission are showing no organisms. Patient states the pain to her knee is improved today but she does have problems when she gets up and moves. she is to be nonweightbearing and utilize knee immobilizer. Objective - Vital Signs Vital signs: Vital Signs Temp 97.4 F L 07/27/16 07:00 Pulse 66 07/27/16 07:00 Resp 16 07/27/16 07:00 BP 123/71 07/27/16 07:00 Pulse Ox 98 07/27/16 07:00 Intake & Output 07/26/16 07/27/16 07/27/16 18:59 06:59 18:59 Intake Total 1602 540 Output Total 50 0 0 Balance 1552 540 0 Weight 66.075 kg Intake: IV 1602 300 Lactated Ringers 1,000 ml 300 @ 60 mls/hr IV .[id number] [facility] Rx#:[id number] Oral 240 Output: Drainage 0 0 Right Knee 0 0 Estimated Blood Loss 50 Other: Voiding Method Toilet Toilet # Voids 1 2 - Exam General appearance: no acute distress, thin - EENT Eyes: anicteric sclerae, EOMI, PERRLA, no ptosis, no scleral icterus, normal appearance ENT: hearing grossly normal, NA/AT, normal oropharynx, no thrush Ears: bilateral: normal - Neck Neck: no lymphadenopathy, normal ROM, no rigidity, no stridor, no thyromegaly Carotids: bilateral: upstroke normal Thyroid: bilateral: normal size - Respiratory Respiratory: bilateral: CTA, negative: diminished, dullness, rales, rhonchi, wheezing, prolonged expiration, prolonged inspiration - Cardiovascular Rhythm: regular Heart sounds: normal: S1, S2 Abnormal Heart Sounds: no systolic murmur, no diastolic murmur, no rub, no S3 Gallop, no S4 Gallop, no click - Gastrointestinal General gastrointestinal: normal bowel sounds, soft, no splenomegaly, no tenderness, no umbilical hernia, no ventral hernia - Integumentary Integumentary: normal, normal turgor - Neurologic Neurologic: CNII-XII intact - Musculoskeletal Musculoskeletal: strength equal bilaterally - Psychiatric Psychiatric: A&O x's 3, appropriate affect, intact judgment & insight - Labs CBC & Chem 7: 07/27/16 08:01 07/27/16 08:01 Labs: Abnormal Lab Results - Last 24 Hours (Table) 07/27/16 07/27/16 07/27/16 Range/Units 08:01 08:01 08:01 RBC 3.77 L (3.80-5.40) m/uL Hgb 8.4 L (11.4-16.0) gm/dL Hct 28.1 L (34.0-46.0) % MCV 74.5 L (80.0-100.0) fL MCH 22.3 L (25.0-35.0) pg MCHC 29.9 L (31.0-37.0) g/dL Plt Count 708 H (150-450) k/uL ESR 104 H (0-20) mm/hr C-Reactive Protein 83.2 H (<10.0) mg/L Prealbumin 10 L (18-36) mg/dL Microbiology - Last 24 Hours (Table) 05/31/17 10:43 Gram Stain - Preliminary Knee - Right Wound Culture - Preliminary 07/26/16 10:43 Anaerobic Culture - Preliminary Knee - Right 07/26/16 10:43 Gram Stain - Preliminary Knee - Right Wound Culture - Preliminary 07/26/16 10:43 Anaerobic Culture - Preliminary Knee - Right Assessment and Plan Plan: 1. Septic arthroplasty status post removal of the hardware from the right knee by Dr. Kim Mitchell. Continue IV antibiotics per Dr. Nunez. PICC line is ordered and Lovenox placed on hold. Cyclobenzaprine 10 mg orally tid as needed, also will continue with incentive spirometer to reduce the incidence of the atelectasis and hospital acquired pneumonia.will continue with DVT prophylaxis with lovenox. 2. Fibromyalgia under the care of dorcas Naidu. Continue Neurontin 600 mg po qhs, cymbalta 60 mg orally daily and elavil 30 mg orally daily. 3. Hypothyroidism. Continue levothyroxine 25 mcg orally daily. 4. ADD. Hold off Adderall. 5. Generalized anxiety disorder. Continue Xanax 0.5 mg po tid prn. 6. Constipation. will continue with Metamucil 6 mg orall daily and Senokot. 7. DVT prophylaxis. will continue with Knee-high Dick hose and Lovenox 30 mg SC q 12 h. 8. GI Prophylaxis. will continue with Pepcid 20 mg orall daily. Discharge plan: Home with IV antibiotics Impression and plan of care have been directed as dictated by the signing physician. Gretchen Curry nurse practitioner acting as scribe for signing physician.
[2016-07-27] MEDS: SENNOSIDES-DOCUSATE SODIUM 1 EACH TAB PO SCH (21:18)
[2016-07-27] MEDS: GABAPENTIN 300 MG CAP PO SCH (21:22)
[2016-07-27] MEDS: VANCOMYCIN 1,250 MG in SODIUM CHLORIDE 0.9% 250 ML IVPB SCH (21:22)
[2016-07-27] MEDS: PSYLLIUM HUSK 100% 6 GM PACKET PO SCH (21:22)
[2016-07-27] MEDS: AMITRIPTYLINE HCL 10 MG TAB PO SCH (21:22)
[2016-07-28] MEDS: traMADol 50 MG TAB PO PRN ×2 (03:05→09:24)
[2016-07-28] MEDS: CYCLOBENZAPRINE 10 MG TAB PO PRN (03:45)
[2016-07-28] MEDS: VANCOMYCIN 1,250 MG in SODIUM CHLORIDE 0.9% 250 ML IVPB SCH (05:50)
[2016-07-28] MEDS: HYDROcodone/APAP 7.5-325MG 1 EACH TAB PO PRN ×2 (06:23→12:51)
[2016-07-28] MEDS: LEVOTHYROXINE 25 MCG TAB PO SCH (06:24)
[2016-07-28 08:15] LABS: Basophils % (A) 0 %; CH 21.8; Eosinophils # (A) 0.1 k/uL (0-0.7); Eosinophils % (A) 1 %; HDW 2.94; HGB 8.2 gm/dL (11.4-16.0); Hypochromasia Marked; Luc # (Auto) 0.15; Luc % (Auto) 2; Lymphocytes # (A) 0.9 k/uL (1.0-4.8); Lymphocytes % (A) 11 %; MCHC 29.3 g/dL (31.0-37.0); MCV 75.2 fL (80.0-100.0); Microcytosis Slight; Monocytes # (A) 0.7 k/uL (0-1.0); Monocytes % (A) 9 %; Neutrophils # (A) 6.4 k/uL (1.3-7.7); Neutrophils % (A) 78 %; RBC 3.72 m/uL (3.80-5.40); RDW 15.5 % (11.5-15.5); WBC 8.3 k/uL (3.8-10.6); WBC (Perox) 8.74
[2016-07-28] MEDS: FAMOTIDINE 20 MG TAB PO SCH (09:13)
[2016-07-28] MEDS: DULoxetine HCL 60 MG CAPSULE.DR PO SCH (09:13)
[2016-07-28] MEDS: MULTIVITAMINS, THERA 1 EACH TAB PO SCH (09:13)
[2016-07-28] MEDS: CALCIUM CARBONATE 500 MG CHEWABLE PO SCH (09:13)
[2016-07-28] MEDS: LACTATED RINGERS 1,000 ML IV SCH (09:14)
--- NOTE | 2016-07-28 10:58 | P.DS ---
Providers Date of admission: 07/26/16 12:18 Expected date of discharge: 07/28/16 Attending physician: Edd Barnes Consults: 07/26/16 12:29 Consult Physician Routine Consulting Provider: Aldo Nunez Consult Reason/Comments: halfway antibiotic, right knee periprostetic joint infection Do you want consulting provider notified?: Yes 07/26/16 15:59 Consult Physician Routine Consulting Provider: Nicole Wallace Consult Reason/Comments: medical management Do you want consulting provider notified?: Yes Primary care physician: [facility] Hospital Course: Date of admission: 07/26/2016 Date of discharge: 07/28/2016 Admission diagnosis: Status post incision and drainage and hardware removal right knee Discharge diagnosis: Same Attending physician: Dr. Pacheco Surgical procedures: Incision and drainage and hardware removal right knee Brief history: Patient is a 46-year-old female with a history of a previous patellofemoral arthroplasty involving the right knee. About 12 weeks ago, the patient had a fall where she had a displacing comminuted patella fracture on the right knee. She underwent a ORIF of the right patella. During the recovery process, the fracture became displaced again, so she underwent a another open reduction internal fixation of the right patella, this is about 6 weeks ago. Patient and subsequently developed a infection involving the incision on that right knee, she was boarded for incision and drainage procedure on 07/26/2016. Hospital course: Details of patient's surgery can be found in operative report. Patient tolerated the procedure well and was subsequently transported to orthopedic floor. Patient's orthopeidc and medical care was provided daily. Patient had daily laboratory tests performed for evaluation of overall blood counts. Patient had daily physical therapy to include strengthening range of motion as well as education with walker ambulation. Patient was treated with Lovenox for their postoperative DVT prophylaxis during their inpatient stay. Patient was noted to have a relatively uneventful postoperative course. Patient reported satisfactory pain control with oral pain medications by postoperative day 0. Patient showed satisfactory progress with physical therapy. Patient moved steadily through the program and had no difficulty meeting the goals by postoperative day 2. Given patient's otherwise satisfactory course and having met physical therapy goals, plan is to discharge patient home on postoperative day 2. Discharge condition/disposition: Patient will be discharged home in stable condition. Discharge medications: Instructions are given on resumption of patient's normal daily medications per primary care recommendation, in addition patient will be prescribed IV vancomycin, [place] 7.5 mg/325 mg, aspirin 325 mg. Discharge instructions: 1. Wound care and infection precautions, keep incision dry and covered while showering, no lotions, creams, moisturizers. No soaking, tubs, pools, hottubs. Do not scrub over the incision. 2. Nonweightbearing of the right leg, utilize knee immobilizer. Advised to keep the knee completely straight, absolutely no bending of the right knee 3. Ice and elevate when necessary. Do not exceed 20 minutes per hour with ice pack. 4. Utilize compression sleeve until seen at first follow up appointment. 5. Visiting nursing care. 5. Pain meds and anticoagulants per prescription. 6. Pain medication has potential to cause constipation. Increase oral fluid and fiber intake. Contact primary care provider if you have not had a bowel movement within 48 hours after discharge 7. Follow up in office at 2 weeks postop with Jose Rafael Gibbs PA-C 8. Follow up with your primary care doctor 7-10 days after discharge. 9. Contact [facility] with any questions, . Procedures: Incision and drainage and hardware removal right knee Patient Condition at Discharge: Good Plan - Discharge Summary New Discharge Prescriptions: New Aspirin 325 mg PO DAILY #30 tab HYDROcodone/APAP 7.5-325MG [[place] 7.5] 1 - 2 each PO Q6HR PRN #60 tab PRN Reason: Pain ceFAZolin [Kefzol] 2,000 mg IVP Q8HR #120 syr No Action Amitriptyline HCl [Elavil] 30 mg PO HS Levothyroxine Sodium [Synthroid] 25 mcg PO DAILY Gabapentin [Neurontin] 600 mg PO HS DULoxetine HCL [Cymbalta] 60 mg PO DAILY Dextroamphetamine/Amphetamine [Adderall] 20 mg PO DAILY PRN PRN Reason: ADHD Psyllium Husk 100% [Metamucil Packet] 6 gm PO HS Multivitamins, Thera [Multivitamin (formulary)] 1 tab PO DAILY ALPRAZolam [Xanax] 0.5 mg PO TID PRN PRN Reason: Anxiety Calcium Carbonate [Calcium] 1,200 mg PO DAILY Cephalexin [Keflex] 500 mg PO Q6HR Discharge Medication List Amitriptyline HCl [Elavil] 30 mg PO HS 01/20/17 [History] DULoxetine HCL [Cymbalta] 60 mg PO DAILY 03/17/16 [History] Gabapentin [Neurontin] 600 mg PO HS 03/17/16 [History] Levothyroxine Sodium [Synthroid] 25 mcg PO DAILY 03/17/16 [History] Dextroamphetamine/Amphetamine [Adderall] 20 mg PO DAILY PRN 05/16/16 [History] ALPRAZolam [Xanax] 0.5 mg PO TID PRN 06/16/16 [History] Calcium Carbonate [Calcium] 1,200 mg PO DAILY 06/16/16 [History] Multivitamins, Thera [Multivitamin (formulary)] 1 tab PO DAILY 06/16/16 [History ] Psyllium Husk 100% [Metamucil Packet] 6 gm PO HS 06/16/16 [History] Cephalexin [Keflex] 500 mg PO Q6HR 07/26/16 [History] Aspirin 325 mg PO DAILY #30 tab 07/28/16 [Rx] HYDROcodone/APAP 7.5-325MG [[place] 7.5] 1 - 2 each PO Q6HR PRN #60 tab 07/28/16 [ Rx] ceFAZolin [Kefzol] 2,000 mg IVP Q8HR #120 syr 07/28/16 [Rx] Follow up Appointment(s)/Referral(s): [facility], [NON-STAFF] - 1 Week Manjit Gibbs PAC [PHYSICIAN [employer]] - 2 Weeks Ambulatory/Diagnostic Orders: Basic Metabolic Panel [LAB.AMB] Location: Determined By Patient Complete Blood Count w/diff [LAB.AMB] Location: Determined By Patient Miscellaneous Lab Order [LAB.AMB] Location: Determined By Patient Patient Instructions/Handouts: Wound Infection (DC) Activity/Diet/Wound Care/Special Instructions: [facility] - they will deliver your antibiotics supplies tonight. Orthopedic discharge instructions: 1. Nonweightbearing right lower extremity 2. Utilize knee immobilizer at all times 3. No bending of the knee, keep it full extension 4. Daily dressing changes, keep incision covered and dry while showering 5. Ice and elevate as needed 6. Pain medication as needed 7. Follow-up at [facility] in 2 weeks Discharge Disposition: HOME WITH HOME HEALTH SERVICES
--- NOTE | 2016-07-28 11:07 | P.PN ---
Subjective Principal diagnosis: Status post I&D and hardware removal right knee Patient is seen today resting in her hospital bed, she appears comfortable. She is utilizing the knee immobilizer at this time. She denies any fevers or chills at this time. She denies any chest pain, shortness of breath, headaches. Objective - Vital Signs Vital signs: Vital Signs Temp 98.6 F 07/28/16 07:00 Pulse 85 07/28/16 07:00 Resp 16 07/28/16 08:00 BP 121/61 07/28/16 07:00 Pulse Ox 94 L 07/28/16 07:00 Intake & Output 07/27/16 07/28/16 07/28/16 18:59 06:59 18:59 Intake Total 370 250 Output Total 10 Balance 360 250 Intake: IV 120 Lactated Ringers 1,000 ml 120 @ 60 mls/hr IV .[id number] [facility] Rx#:[id number] Intake, IV Titration 250 250 Amount Vancomycin 1,250 mg In 250 250 Sodium Chloride 0.9% 250 ml @ 125 mls/hr IVPB Q8H [facility] Rx#:[id number] Output: Drainage 10 Right Knee 10 Other: Voiding Method Toilet Toilet Toilet # Voids 2 - Exam Right lower extremity: Incision is clean, dry and intact. Sutures are in good position. Calf is soft, no tenderness with palpation. Plantar flexion, dorsiflexion, EHL, FHL are intact. Sensory exam to light touch throughout the extremity. Dorsal pedis pulses 2+. - Labs CBC & Chem 7: 07/28/16 07:28 07/27/16 08:01 Labs: Abnormal Lab Results - Last 24 Hours (Table) 07/27/16 07/28/16 Range/Units 08:01 07:28 RBC 3.72 L (3.80-5.40) m/uL Hgb 8.2 L (11.4-16.0) gm/dL Hct 28.0 L (34.0-46.0) % MCV 75.2 L (80.0-100.0) fL MCH 22.0 L (25.0-35.0) pg MCHC 29.3 L (31.0-37.0) g/dL Plt Count 620 H (150-450) k/uL Lymphocytes # 0.9 L (1.0-4.8) k/uL ESR 104 H (0-20) mm/hr Microbiology - Last 24 Hours (Table) 07/26/16 10:43 Gram Stain - Preliminary Knee - Right Wound Culture - Preliminary Assessment and Plan Plan: Assessment: 1. Postop day #2 status post I&D and removal hardware right knee Plan: 1. Pain control, will discharge home on oral medication 2. Nonweightbearing right knee, utilize knee immobilizer 3. GI and DVT prophylaxis, will discharge home on aspirin 325mg daily 4. Await culture results 5. Infectious disease recommendation 6. Medical recommendations 7. PICC line placement today 8. Anticipate discharge home today Time with Patient: Less than 30
[2016-07-28] MEDS ORDERED: LIDOCAINE 2% INJ 20 MG/ML SQ ONE (11:20)
[2016-07-28 12:53] VITALS: TEMP 97.9
[2016-07-28 12:55] VITALS: BP 133/63; PULSE 100
[2016-07-28] MEDS ORDERED: DAPTOmycin 500 MG in SODIUM CHLORIDE 0.9% 50 ML IV SCH (13:00)
--- NOTE | 2016-07-28 15:11 | P.PN ---
Subjective This is a 46-year-old female patient of Dr. Jeremi Ferreira with a past medical history of fibromyalgia under the care of Dr. De León, osteoarthritis , hypothyroidism. Patient states that she fell on May 10 and sustained a right patella fracture. She underwent open reduction and internal fixation of the right knee on May [address] Barnes. Subsequently, she returned to [facility] on 06/19/2016 and underwent open reduction internal fixation. Patient has had no postop complications. She states she is able to walk with crutches and be nonweightbearing on the right leg. She also has a knee immobilizer. Patient stated that she has been doing fine till recently when she developped to have increased drainage from her wound and was seen by the PA at office and was recently placed on ABX in the form of Cephalexine 500 mg po qid and was following up with who recommended for her to have extraction of the patellofemoral joint which was done today and she was started on IV antibiotics and was seen by Dr. Nunez who recommended PICC line and IV ABX for sometimes. Patient is sitting up in bed very emotional and complaining of a lot of pain in the right knee since she did not have femoral block this time. 07/27:patient has been seen by Dr. Nunez with recommendations for IV antibiotics. PICC line is ordered and Lovenox has been placed on hold. Wound cultures on this admission are showing no organisms. Patient states the pain to her knee is improved today but she does have problems when she gets up and moves. she is to be nonweightbearing and utilize knee immobilizer. 07/28: Patient is scheduled for PICC line placement today. Dr. Nunez has clarified discharge antibiotics to cefazolin. Plan is for discharge home today. Patient states that her pain is much improved from yesterday. Objective - Vital Signs Vital signs: Vital Signs Temp 98.6 F 07/28/16 07:00 Pulse 85 07/28/16 07:00 Resp 16 07/28/16 08:00 BP 121/61 07/28/16 07:00 Pulse Ox 94 L 07/28/16 07:00 Intake & Output 07/27/16 07/28/16 07/28/16 18:59 06:59 18:59 Intake Total 370 250 Output Total 10 Balance 360 250 Intake: IV 120 Lactated Ringers 1,000 ml 120 @ 60 mls/hr IV .[id number] [facility] Rx#:[id number] Intake, IV Titration 250 250 Amount Vancomycin 1,250 mg In 250 250 Sodium Chloride 0.9% 250 ml @ 125 mls/hr IVPB Q8H [facility] Rx#:[id number] Output: Drainage 10 Right Knee 10 Other: Voiding Method Toilet Toilet Toilet # Voids 2 - Exam General appearance: no acute distress, thin - EENT Eyes: anicteric sclerae, EOMI, PERRLA, no ptosis, no scleral icterus, normal appearance ENT: hearing grossly normal, NA/AT, normal oropharynx, no thrush Ears: bilateral: normal - Neck Neck: no lymphadenopathy, normal ROM, no rigidity, no stridor, no thyromegaly Carotids: bilateral: upstroke normal Thyroid: bilateral: normal size - Respiratory Respiratory: bilateral: CTA, negative: diminished, dullness, rales, rhonchi, wheezing, prolonged expiration, prolonged inspiration - Cardiovascular Rhythm: regular Heart sounds: normal: S1, S2 Abnormal Heart Sounds: no systolic murmur, no diastolic murmur, no rub, no S3 Gallop, no S4 Gallop, no click - Gastrointestinal General gastrointestinal: normal bowel sounds, soft, no splenomegaly, no tenderness, no umbilical hernia, no ventral hernia - Integumentary Integumentary: normal, normal turgor - Neurologic Neurologic: CNII-XII intact - Musculoskeletal Musculoskeletal: strength equal bilaterally - Psychiatric Psychiatric: A&O x's 3, appropriate affect, intact judgment & insight - Labs CBC & Chem 7: 07/28/16 07:28 07/27/16 08:01 Labs: Abnormal Lab Results - Last 24 Hours (Table) 07/27/16 07/28/16 Range/Units 08:01 07:28 RBC 3.72 L (3.80-5.40) m/uL Hgb 8.2 L (11.4-16.0) gm/dL Hct 28.0 L (34.0-46.0) % MCV 75.2 L (80.0-100.0) fL MCH 22.0 L (25.0-35.0) pg MCHC 29.3 L (31.0-37.0) g/dL Plt Count 620 H (150-450) k/uL Lymphocytes # 0.9 L (1.0-4.8) k/uL ESR 104 H (0-20) mm/hr Microbiology - Last 24 Hours (Table) 07/26/16 10:43 Gram Stain - Preliminary Knee - Right Wound Culture - Preliminary Assessment and Plan Plan: 1. Septic arthroplasty status post removal of the hardware from the right knee by Dr. Barnes. Continue IV antibiotics per Dr. Nunez. PICC line is ordered and Lovenox placed on hold. Cyclobenzaprine 10 mg orally tid as needed, also will continue with incentive spirometer to reduce the incidence of the atelectasis and hospital acquired pneumonia.will continue with DVT prophylaxis with lovenox. 2. Fibromyalgia under the care of dorcas Naidu. Continue Neurontin 600 mg po qhs, cymbalta 60 mg orally daily and elavil 30 mg orally daily. 3. Hypothyroidism. Continue levothyroxine 25 mcg orally daily. 4. ADD. Hold off Adderall. 5. Generalized anxiety disorder. Continue Xanax 0.5 mg po tid prn. 6. Constipation. will continue with Metamucil 6 mg orall daily and Senokot. 7. DVT prophylaxis. will continue with Knee-high Dick hose and Lovenox 30 mg SC q 12 h. 8. GI Prophylaxis. will continue with Pepcid 20 mg orall daily. Discharge plan: Home with IV antibiotics Impression and plan of care have been directed as dictated by the signing physician. Gretchen Curry nurse practitioner acting as scribe for signing physician.
--- NOTE | 2016-07-28 18:03 | P.PN ---
Subjective Principal diagnosis: Infection right knee hardware Pleasant 46-year-old female who relates that she has advanced degenerative joint disease with osteoarthritis. 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 She developed extensive disease to her right knee and had a unicompartmental knee replacement. That was going quite well. However May 10 she suffered a fall onto the knee. She did have a patellar fracture. She was taking by Dr. Barnes to the operating room for open reduction internal fixation of that right knee fracture. Apparently after several weeks there was some slippage of the fixation. She was again taken to the operating room on 06/19/2016. Further fixation was performed to the knee. Now the patient presents to the hospital with a significant change in her status. The knee becoming consuming more painful. Development of some drainage and difficulty with range of motion and increasing amounts of her discomfort. She was evaluated by orthopedics and there was concern for deep infection. Cultures taken the operating room today. The hardware was removed. Defects were filled in with antibiotic cement. The patient is now doing relatively well. Getting ready for discharge to home. Cultures have not been finalized reveal evidence of MSSA. She receiving vancomycin therapy but this cannot be transitioned to cefazolin at 2 g IV push every 8 hours to complete her 6 week course of therapy. Objective - Vital Signs Vital signs: Vital Signs Temp 97.9 F 07/28/16 12:00 Pulse 100 07/28/16 12:54 Resp 16 07/28/16 12:54 BP 133/63 07/28/16 12:54 Pulse Ox 100 07/28/16 12:54 Intake & Output 07/27/16 07/28/16 07/28/16 18:59 06:59 18:59 Intake Total 370 250 140 Output Total 10 Balance 360 250 140 Intake: IV 120 Lactated Ringers 1,000 ml 120 @ 60 mls/hr IV .[id number] KEVIN Rx#:[id number] Intake, IV Titration 250 250 140 Amount Lactated Ringers 1,000 ml 140 @ 20 mls/hr IV .Q24H KEVIN Rx#:[id number] Vancomycin 1,250 mg In 250 250 Sodium Chloride 0.9% 250 ml @ 125 mls/hr IVPB Q8H KEVIN Rx#:[id number] Output: Drainage 10 Right Knee 10 Other: Voiding Method Toilet Toilet Toilet # Voids 2 - Exam pleasant healthy 46-year-old woman who is in some discomfort from her recent surgery. HEENT: Anicteric conjunctiva are pink and moist nasal mucosa grossly intact without significant lesions, there is no thrush. Neck: The neck is supple without significant lymphadenopathy or thyromegaly. Lungs: Good bilateral air entry without significant crackles or wheezing. There is no significant bronchial sounds. There is no egophony or dullness. Heart: Regular rate and rhythm with an audible S1-S2, no S3 no S4. There is no significant murmur click or rub, PMI was nondisplaced. Abdomen: Positive bowel sounds soft and nontender without palpable masses or organomegaly. There was no guarding or rebound. Extremities: The upper extremities have excellent pulses they are symmetric, no significant petechiae or telangiectasia. No splinter hemorrhages were noted. the left lower extremity has no acute abnormality. The right knee shows evidence of recent surgical intervention. The surgical wound is well approximated. There is no evidence of any significant drainage. There is some tenderness to the site. But there is no erythema or purulent drainage being seen at this time. Neuro: Awake alert oriented to person place and time. There are no acute new gross focal sensory motor deficits. - Labs CBC & Chem 7: 07/28/16 07:28 07/27/16 08:01 Labs: Abnormal Lab Results - Last 24 Hours (Table) 07/28/16 Range/Units 07:28 RBC 3.72 L (3.80-5.40) m/uL Hgb 8.2 L (11.4-16.0) gm/dL Hct 28.0 L (34.0-46.0) % MCV 75.2 L (80.0-100.0) fL MCH 22.0 L (25.0-35.0) pg MCHC 29.3 L (31.0-37.0) g/dL Plt Count 620 H (150-450) k/uL Lymphocytes # 0.9 L (1.0-4.8) k/uL Microbiology - Last 24 Hours (Table) 07/26/16 10:43 Anaerobic Culture - Preliminary Knee - Right 07/26/16 10:43 Gram Stain - Final Knee - Right Wound Culture - Final Staphylococcus aureus Laboratory Results WBC 8.3 k/uL (3.8-10.6) 07/28/16 07:28 RBC 3.72 m/uL (3.80-5.40) L 07/28/16 07:28 Hgb 8.2 gm/dL (11.4-16.0) L 07/28/16 07:28 Hct 28.0 % (34.0-46.0) L 07/28/16 07:28 MCV 75.2 fL (80.0-100.0) L 07/28/16 07:28 MCH 22.0 pg (25.0-35.0) L 07/28/16 07:28 MCHC 29.3 g/dL (31.0-37.0) L 07/28/16 07:28 RDW 15.5 % (11.5-15.5) 07/28/16 07:28 Plt Count 620 k/uL (150-450) H 07/28/16 07:28 Neutrophils % 78 % 07/28/16 07:28 Lymphocytes % 11 % 07/28/16 07:28 Monocytes % 9 % 07/28/16 07:28 Eosinophils % 1 % 07/28/16 07:28 Basophils % 0 % 07/28/16 07:28 Neutrophils # 6.4 k/uL (1.3-7.7) 07/28/16 07:28 Lymphocytes # 0.9 k/uL (1.0-4.8) L 07/28/16 07:28 Monocytes # 0.7 k/uL (0-1.0) 07/28/16 07:28 Eosinophils # 0.1 k/uL (0-0.7) 07/28/16 07:28 Basophils # 0.0 k/uL (0-0.2) 07/28/16 07:28 Hypochromasia Marked 07/28/16 07:28 Microcytosis Slight 07/28/16 07:28 ESR 104 mm/hr (0-20) H 07/27/16 08:01 Creatinine 0.55 mg/dL (0.52-1.04) 07/27/16 08:01 Est GFR (MDRD) Af Amer >60 (>60 ml/min/1.73 sqM) 07/27/16 08:01 Est GFR (MDRD) Non-Af >60 (>60 ml/min/1.73 sqM) 07/27/16 08:01 C-Reactive Protein 83.2 mg/L (<10.0) H 07/27/16 08:01 Prealbumin 10 mg/dL (18-36) L 07/27/16 08:01 Microbiology 07/26/16 10:43 Knee - Right Anaerobic Culture - Preliminary 07/26/16 10:43 Knee - Right Gram Stain - Final 07/26/16 10:43 Knee - Right Wound Culture - Final Staphylococcus aureus 07/26/16 10:43 Knee - Right Gram Stain - Preliminary 07/26/16 10:43 Knee - Right Wound Culture - Preliminary 07/26/16 10:43 Knee - Right Anaerobic Culture - Preliminary Assessment and Plan (1) Right patella fracture Status: Acute (2) Status post unicompartmental knee replacement, right Status: Acute (3) Infection and inflammatory reaction due to internal right knee prosthesis, initial encounter Narrative/Plan: 46-year-old female who has a history of significant degenerative disease to her right knee. His undergone a prior unicompartmental knee replacement. Earlier in the spring she suffered a fall and a fracture to the patella. She underwent repair. However difficulty with that occurred and she required further fixation. Now presents with evidence of a deep infection at that site. The hardware is been removed symptomatic segment has been placed to the area. For antibiotic therapy should be treated with vancomycin this point in time for the common usual pathogens while cultures are pending. Culture is now finalized. MSSA has been isolated. Antibiotic therapy has been altered to high-dose cefazolin 2 g every 8 hours via IV push at home. Continue ongoing local wound care which is a dry nonstick dressing. Immobilization per the surgeon. From the office in 3 weeks. Weekly blood work requested. Status: Acute
== END 2016-07-28 16:20 | disposition home health service (06) | DRG 464 ==
LOC: OR 08:52 → 5MS5E 12:18
PROVIDERS: ADMIT Orthopaedic Surgery; ATTEND Orthopaedic Surgery
PROC: 0JDN0ZZ Extraction of Right Lower Leg Subcutaneous Tissue and Fascia, Open Approach (ICD-10-PCS; 2016-07-26)
PROC: 0SPT0JZ Removal of Synthetic Substitute from Right Knee Joint, Femoral Surface, Open Approach (ICD-10-PCS; principal; 2016-07-26 07:30)
PROC: 02HV33Z Insertion of Infusion Device into Superior Vena Cava, Percutaneous Approach (ICD-10-PCS; 2016-07-28 11:15)
DX: T84.53XA Infection and inflammatory reaction due to internal right knee prosthesis, initial encounter (principal); T81.4XXA Infection following a procedure, initial encounter; M96.69 Fracture of other bone following insertion of orthopedic implant, joint prosthesis, or bone plate; S82.001A Unspecified fracture of right patella, initial encounter for closed fracture; B95.61 Methicillin susceptible Staphylococcus aureus infection as the cause of diseases classified elsewhere; M17.11 Unilateral primary osteoarthritis, right knee; E03.9 Hypothyroidism, unspecified; F32.9 Major depressive disorder, single episode, unspecified; F41.1 Generalized anxiety disorder; F90.9 Attention-deficit hyperactivity disorder, unspecified type; K59.00 Constipation, unspecified; F12.90 Cannabis use, unspecified, uncomplicated; M79.7 Fibromyalgia; Z79.899 Other long term (current) drug therapy; Z82.49 Family history of ischemic heart disease and other diseases of the circulatory system; Z82.61 Family history of arthritis; Z80.8 Family history of malignant neoplasm of other organs or systems; Z96.651 Presence of right artificial knee joint; Z79.891 Long term (current) use of opiate analgesic; Z90.710 Acquired absence of both cervix and uterus; Z90.49 Acquired absence of other specified parts of digestive tract; Z98.51 Tubal ligation status; Z79.2 Long term (current) use of antibiotics; Z79.82 Long term (current) use of aspirin; W19.XXXA Unspecified fall, initial encounter
CPT/HCPCS: 36415; 36569; 76937; 77001; 82565; 84134; 85025; 85652; 86140; 87070; 87075; 87077; 87186; 87205

== ENCOUNTER → 2016-10-12 | Outpatient (CLI) | payer BC ==
[2016-10-12 12:35] LABS: Anisocytosis Slight; Basophils % (A) 1 %; CH 21.4; CHCM 28.9; Eosinophils # (A) 0.1 k/uL (0-0.7); Eosinophils % (A) 1 %; HCT 32.7 % (34.0-46.0); HDW 2.94; HGB 9.3 gm/dL (11.4-16.0); Hypochromasia Marked; Luc # (Auto) 0.17; Luc % (Auto) 4; Lymphocytes # (A) 1.6 k/uL (1.0-4.8); Lymphocytes % (A) 32 %; MCH 21.1 pg (25.0-35.0); MCHC 28.4 g/dL (31.0-37.0); MCV 74.2 fL (80.0-100.0); Mean Platelet Volume 6.8; Microcytosis Moderate; Monocytes # (A) 0.4 k/uL (0-1.0); Monocytes % (A) 9 %; Neutrophils # (A) 2.5 k/uL (1.3-7.7); Neutrophils % (A) 53 %; RBC 4.41 m/uL (3.80-5.40); Reticulocyte % 2.3 % (0.5-2.0); WBC 4.8 k/uL (3.8-10.6); WBC (Perox) 5.61
[2016-10-12 15:09] LABS: ALT 33 U/L (9-52); AST 29 U/L (14-36); Alkaline Phosphatase 27 U/L (38-126); Anion Gap 11 mmol/L; Blood Urea Nitrogen 9 mg/dL (7-17); Calcium 9.3 mg/dL (8.4-10.2); Carbon Dioxide 24 mmol/L (22-30); Chloride 104 mmol/L (98-107); Glucose 97 mg/dL (74-99); Iron 14 ug/dL (37-170); Non-African American GFR(MDRD) >60 (>60 ml/min/1.73 sqM); Sodium 139 mmol/L (137-145); Total Bilirubin 0.2 mg/dL (0.2-1.3); Total Protein 7.2 g/dL (6.3-8.2)
[2016-10-12 15:19] LABS: % Iron Saturation 3.5 % (20-50); Total Iron Binding Capacity 405 ug/dL (265-497)
[2016-10-12 16:18] LABS: Vitamin B12 600 pg/mL (239-931)
== END | disposition home or self-care (01) ==
LOC: LABWHC1 11:44
PROVIDERS: ATTEND Internal Medicine Infectious Disease
DX: T84.54XD Infection and inflammatory reaction due to internal left knee prosthesis, subsequent encounter (principal)
CPT/HCPCS: 36415; 80053; 82607; 82728; 82746; 83540; 83550; 85025; 85045

== ENCOUNTER 2017-06-23 12:31 | Inpatient (IN) | payer BC ==
--- NOTE | 2017-06-23 13:10 | ED ---
Psych HPI - General Chief Complaint: Psychiatric Symptoms Stated Complaint: EPS eval Time Seen by Provider: 06/23/17 12:48 Source: patient, family Mode of arrival: ambulatory - History of Present Illness Initial Comments: Patient is a 47-year-old female with a history of depression presenting to the emergency department for suicidal ideation. She states that for the last month or so, she has been very depressed and that she has a clear plan to kill herself. She states that she wants to drive her truck into a pole and/or drown herself in a pond. Her boyfriend's bedside and states that she is not safe to go home but he has still removed all the guns from the house. She states that she does not feel safe to go home as well and would like to seek inpatient treatment. She denies any physical complaints at the moment. - Related Data Home Medications Medication Instructions Recorded Confirmed Amitriptyline HCl [Elavil] 30 mg PO HS 03/17/16 06/23/17 Gabapentin [Neurontin] 600 mg PO HS 03/17/16 06/23/17 Levothyroxine Sodium [Synthroid] 25 mcg PO DAILY 03/17/16 06/23/17 Dextroamphetamine/Amphetamine 20 mg PO DAILY 05/16/16 06/23/17 [Adderall] ALPRAZolam [Xanax] 0.5 mg PO TID PRN 06/16/16 06/23/17 Psyllium Husk 100% [Metamucil 6 gm PO HS 06/16/16 06/23/17 Packet] Folic Acid 1 mg PO DAILY 06/23/17 06/23/17 Allergies Allergy/AdvReac Type Severity Reaction Status Date / Time No Known Allergies Allergy Verified 06/23/17 12:34 Review of Systems ROS Statement: Those systems with pertinent positive or pertinent negative responses have been documented in the HPI. Constitutional: Negative for chills, fatigue and fever. HENT: Negative for congestion. Respiratory: Negative for chest tightness, shortness of breath and wheezing. Negative for cough Cardiovascular: Negative for chest pain and palpitations. Gastrointestinal: Negative for abdominal pain. Negative for abdominal distention , diarrhea, nausea and vomiting. Genitourinary: Negative for dysuria. Musculoskeletal: Negative for back pain, neck pain and neck stiffness. Skin: Negative for color change. Neurological: Negative for dizziness, speech difficulty, weakness and light- headedness. Psychiatric/Behavioral: Negative for agitation and confusion. Positive for anxiety and suicidal ideation ROS Other: All systems not noted in ROS Statement are negative. Past Medical History Past Medical History: Fibromyalgia, Osteoarthritis (OA), Thyroid Disorder Additional Past Medical History / Comment(s): HX OF FX RIGHT KNEE WITH SURGERY AND RE-INJURED KNEE- WEARING BRACE AND USING CRUTCHES. History of Any Multi-Drug Resistant Organisms: None Reported Past Surgical History: Cholecystectomy, Joint Replacement, Tubal Ligation Additional Past Surgical History / Comment(s): LEFT KNEE ARTHROSCOPIC , PARTIAL RIGHT KNEE REPLACEMENT, ORIF RIGHT KNEE FX (05/17/16 and 06/19/2016) Past Anesthesia/Blood Transfusion Reactions: Postoperative Nausea & Vomiting ( PONV) Past Psychological History: ADD/ADHD, Anxiety, Depression, PTSD Smoking Status: Never smoker Past Alcohol Use History: Rare Past Drug Use History: Marijuana - Past Family History Mother Family Medical History: Cancer Additional Family Medical History / Comment(s): Mother is alive at age 72 with history of hysterectomy in her 40s for noncancerous reason. Sister(s) Family Medical History: Cancer, Rheumatoid Arthritis (RA) Additional Family Medical History / Comment(s): Patient has one half sister with rheumatoid arthritis and one half-sister with history of bone cancer status post bone marrow transplant. Father Additional Family Medical History / Comment(s): Mother at age 80 from heart failure with history of coronary artery disease status post 4 vessel CABG. General Exam - General Exam Comments Initial Comments: Constitutional: Pt is oriented to person, place, and time. Pt appears well- developed and well-nourished. No distress. HENT: Head: Normocephalic and atraumatic. Eyes: EOM are normal. Neck: Normal range of motion. Neck supple. Cardiovascular: Normal rate, regular rhythm, S1 normal, S2 normal and normal heart sounds. Exam reveals no gallop and no friction rub. No murmur heard. Pulmonary/Chest: Effort normal and breath sounds normal. No tachypnea and no bradypnea. No respiratory distress. No wheezes or rales noted. Abdominal: Soft. Bowel sounds are normal. Pt exhibits no shifting dullness, no distension, no pulsatile liver, no fluid wave, no abdominal bruit and no ascites. There is no tenderness. There is no rigidity, no rebound, no guarding, no tenderness at McBurney's point and negative Oglesby's sign. Musculoskeletal: Normal range of motion. Neurological: Pt is alert and oriented to person, place, and time. No cranial nerve deficit. Skin: Skin is warm and dry. No rash noted. Pt is not diaphoretic. No erythema. No pallor. Psychiatric: Patient is anxious, tearful and expresses suicidal ideation and intention. There is no homicidal ideation. There is no hallucinations. Limitations: no limitations Course Vital Signs 06/23/17 12:37 Temperature 97.3 F L Pulse Rate 73 Respiratory 18 Rate Blood Pressure 138/70 O2 Sat by Pulse 100 Oximetry - Reevaluation(s) Reevaluation #1: 06/23/17 13:25 - psychiatry nurse notified. Awaiting evaluation. Reevaluation #2: 06/23/17 15:28 Spoke with psych nurse. She states that she discussed the case with psychiatrist and the psychiatrist requested additional laboratory studies because the patient tested positive for amphetamines on the UDS. Psychiatrist requested the studies be completed before the patient lives to psych department. Medical Decision Making - Medical Decision Making Patient has been evaluated by psychiatric nurse and they recommended the patient be admitted for inpatient treatment. - Lab Data Result diagrams: 06/23/17 15:21 06/23/17 15:21 Lab Results 06/23/17 06/23/17 06/23/17 Range/Units 12:50 12:50 12:50 WBC (3.8-10.6) k/uL RBC (3.80-5.40) m/uL Hgb (11.4-16.0) gm/dL Hct (34.0-46.0) % MCV (80.0-100.0) fL MCH (25.0-35.0) pg MCHC (31.0-37.0) g/dL RDW (11.5-15.5) % Plt Count (150-450) k/uL Sodium (137-145) mmol/L Potassium (3.5-5.1) mmol/L Chloride (98-107) mmol/L Carbon Dioxide (22-30) mmol/L Anion Gap mmol/L BUN (7-17) mg/dL Creatinine (0.52-1.04) mg/dL Est GFR (CKD-EPI)AfAm (>60 ml/min/1.73 sqM) Est GFR (CKD-EPI)NonAf (>60 ml/min/1.73 sqM) Glucose (74-99) mg/dL Calcium (8.4-10.2) mg/dL Total Bilirubin (0.2-1.3) mg/dL AST (14-36) U/L ALT (9-52) U/L Alkaline Phosphatase (38-126) U/L Total Protein (6.3-8.2) g/dL Albumin (3.5-5.0) g/dL Urine Color Colorless Urine Appearance Clear (Clear) Urine pH 5.5 (5.0-8.0) Ur Specific Clothier 1.004 (1.001-1.035) Urine Protein Negative (Negative) Urine Glucose (UA) Negative (Negative) Urine Ketones Negative (Negative) Urine Blood Negative (Negative) Urine Nitrite Negative (Negative) Urine Bilirubin Negative (Negative) Urine Urobilinogen <2.0 (<2.0) mg/dL Ur Leukocyte Esterase Negative (Negative) Urine HCG, Qual Not Detected (Not Detectd) Urine Opiates Screen Not Detected (NotDetected) Ur Oxycodone Screen Not Detected (NotDetected) Urine Methadone Screen Not Detected (NotDetected) Ur Propoxyphene Screen Not Detected (NotDetected) Ur Barbiturates Screen Not Detected (NotDetected) U Tricyclic Antidepress Detected H (NotDetected) Ur Phencyclidine Scrn Not Detected (NotDetected) Ur Amphetamines Screen Detected H (NotDetected) U Methamphetamines Scrn Not Detected (NotDetected) U Benzodiazepines Scrn Detected H (NotDetected) Urine Cocaine Screen Not Detected (NotDetected) U Marijuana (THC) Screen Detected H (NotDetected) 06/23/17 06/23/17 Range/Units 15:21 15:21 WBC 4.8 (3.8-10.6) k/uL RBC 4.73 (3.80-5.40) m/uL Hgb 13.3 (11.4-16.0) gm/dL Hct 40.6 (34.0-46.0) % MCV 85.9 (80.0-100.0) fL MCH 28.2 (25.0-35.0) pg MCHC 32.8 (31.0-37.0) g/dL RDW 13.2 (11.5-15.5) % Plt Count 288 (150-450) k/uL Sodium 145 (137-145) mmol/L Potassium 3.7 (3.5-5.1) mmol/L Chloride 104 (98-107) mmol/L Carbon Dioxide 27 (22-30) mmol/L Anion Gap 14 mmol/L BUN 9 (7-17) mg/dL Creatinine 0.70 (0.52-1.04) mg/dL Est GFR (CKD-EPI)AfAm >90 (>60 ml/min/1.73 sqM) Est GFR (CKD-EPI)NonAf >90 (>60 ml/min/1.73 sqM) Glucose 98 (74-99) mg/dL Calcium 9.8 (8.4-10.2) mg/dL Total Bilirubin 0.2 (0.2-1.3) mg/dL AST 32 (14-36) U/L ALT 29 (9-52) U/L Alkaline Phosphatase 29 L (38-126) U/L Total Protein 7.4 (6.3-8.2) g/dL Albumin 4.5 (3.5-5.0) g/dL Urine Color Urine Appearance (Clear) Urine pH (5.0-8.0) Ur Specific Clothier (1.001-1.035) Urine Protein (Negative) Urine Glucose (UA) (Negative) Urine Ketones (Negative) Urine Blood (Negative) Urine Nitrite (Negative) Urine Bilirubin (Negative) Urine Urobilinogen (<2.0) mg/dL Ur Leukocyte Esterase (Negative) Urine HCG, Qual (Not Detectd) Urine Opiates Screen (NotDetected) Ur Oxycodone Screen (NotDetected) Urine Methadone Screen (NotDetected) Ur Propoxyphene Screen (NotDetected) Ur Barbiturates Screen (NotDetected) U Tricyclic Antidepress (NotDetected) Ur Phencyclidine Scrn (NotDetected) Ur Amphetamines Screen (NotDetected) U Methamphetamines Scrn (NotDetected) U Benzodiazepines Scrn (NotDetected) Urine Cocaine Screen (NotDetected) U Marijuana (THC) Screen (NotDetected) - EKG Data EKG Comments: EKG shows sinus bradycardia with a rate of 59 bpm, NV interval is 114, QRS 82, QTC 459. There is some nonspecific T-wave inversions in lead V1 but no significant ST depressions or elevations in any of the other leads. Disposition Clinical Impression: Suicidal ideation Disposition: TRANSFER TO PSYCH HOSP/UNIT Condition: Fair Decision to Admit Reason: Admit from EC Decision Date: 06/23/17 Decision Time: 16:25
[2017-06-23 13:32] LABS: Amphetamine Screen,Urine Detected (NotDetected); Cocaine Screen,Urine Not Detected (NotDetected); Opiate Screen,Urine Not Detected (NotDetected); Phencyclidine Screen,Urine Not Detected (NotDetected)
[2017-06-23 13:33] LABS: Barbiturate Screen,Urine Not Detected (NotDetected); Benzodiazepines Screen,Urine Detected (NotDetected); Methadone Screen, Urine Not Detected (NotDetected); Oxycodone Screen, Urine Not Detected (NotDetected); Tricyclic Antidepressant,Urine Detected (NotDetected); Urn Cannabinoid Scrn Detected (NotDetected)
[2017-06-23 15:26] LABS: Appearance,Urine Clear (Clear); Bilirubin,Urine Negative (Negative); Blood,Urine Negative (Negative); Color,Urine Colorless; Glucose,Urine (UA) Negative (Negative); Ketones,Urine Negative (Negative); Leukocyte Esterase,Urine Negative (Negative); Nitrite,Urine Negative (Negative); PH, Urine 5.5 (5.0-8.0); Protein,Urine Negative (Negative); Specific Gravity,Urine 1.004 (1.001-1.035); Urobilinogen,Urine <2.0 mg/dL (<2.0)
[2017-06-23 15:39] LABS: HCT 40.6 % (34.0-46.0); HGB 13.3 gm/dL (11.4-16.0); MCH 28.2 pg (25.0-35.0); MCHC 32.8 g/dL (31.0-37.0); MCV 85.9 fL (80.0-100.0); Platelet Count 288 k/uL (150-450); RBC 4.73 m/uL (3.80-5.40); RDW 13.2 % (11.5-15.5); WBC 4.8 k/uL (3.8-10.6)
[2017-06-23 15:49] LABS: ALT 29 U/L (9-52); AST 32 U/L (14-36); Albumin 4.5 g/dL (3.5-5.0); Alkaline Phosphatase 29 U/L (38-126); Anion Gap 14 mmol/L; Blood Urea Nitrogen 9 mg/dL (7-17); Calcium 9.8 mg/dL (8.4-10.2); Carbon Dioxide 27 mmol/L (22-30); Chloride 104 mmol/L (98-107); Glucose 98 mg/dL (74-99); Potassium 3.7 mmol/L (3.5-5.1); Sodium 145 mmol/L (137-145); Total Bilirubin 0.2 mg/dL (0.2-1.3); Total Protein 7.4 g/dL (6.3-8.2)
[2017-06-23] MEDS ORDERED: MAGNESIUM HYDROXIDE 2,400 MG/10 ML CUP PO PRN (16:34)
[2017-06-23] MEDS ORDERED: MAG HYDROX/AL HYDROX/SIMETH 30 ML CUP PO PRN (16:34)
[2017-06-23] MEDS ORDERED: LORazepam 1 MG TAB PO PRN (16:34)
[2017-06-23 17:13] VITALS: BMI 28.1
[2017-06-23] MEDS: GABAPENTIN 300 MG CAP PO SCH (20:39)
[2017-06-23] MEDS: AMITRIPTYLINE HCL 10 MG TAB PO SCH (20:39)
[2017-06-24] MEDS: LEVOTHYROXINE 25 MCG TAB PO SCH (06:43)
[2017-06-24] MEDS: PSYLLIUM HUSK 100% 6 GM PACKET PO SCH (09:06)
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
[2017-06-24] MEDS: FOLIC ACID 1 MG TAB PO SCH (12:43)
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
[2017-06-24] MEDS: VENLAFAXINE HCL ER 37.5 MG CAP PO SCH (13:30)
[2017-06-24] MEDS: AMITRIPTYLINE HCL 10 MG TAB PO SCH (20:40)
[2017-06-24] MEDS: GABAPENTIN 300 MG CAP PO SCH (20:40)
[2017-06-25 06:37] VITALS: TEMP 98.2
[2017-06-25] MEDS: LEVOTHYROXINE 25 MCG TAB PO SCH (07:05)
[2017-06-25] MEDS: VENLAFAXINE HCL ER 37.5 MG CAP PO SCH (08:37)
[2017-06-25] MEDS: ACETAMINOPHEN TAB 325 MG TAB PO PRN ×2 (08:38→14:48)
[2017-06-25] MEDS: PSYLLIUM HUSK 100% 6 GM PACKET PO SCH (09:52)
--- NOTE | 2017-06-25 12:43 | P.PN ---
Progress Note - Text Progress Note Date: 06/25/17 Patient was seen for routine follow-up examination. Apparently she was admitted to the hospital because she felt like jumping out of a moving truck. She said she has been going through a lot of stressors in her life, had a divorce hearing on the of this month and she did not get everything she wanted, but, she is able to keep her house. Apparently her is in residential and probably will be there from 17-30 some years. She already has a boyfriend who lives with her. Her other stressors include her 19- year-old daughter becoming a stripper and her father dying of congestive heart failure 2 years ago. She insists that her mood is not labile does not get depressed but is only under stress. We can psychiatrist diagnosed her with major depression recurrent and cannabis abuse. denies having had any depressive episodes or manic episodes in the past. She was on Elavil 30 mg at bedtime, Neurontin 600 mg at bedtime and was started on Effexor XR 37.5 mg a day yesterday. Today, she is says she feels very well and is ready to go home since she has a telephone interview to get her food stamps tomorrow at 1 PM. She had graduated from high school, was outgoing, bubbly and had lots of friends. She denies having had any issues with learning or discipline but, she said she has been on stimulants for ADD which was started by her family doctor. Her neurologist apparently put her on Elavil 30 mg at bedtime, Neurontin 600 mg at bedtime and Cymbalta 60 mg a day which she had stopped. Patient was counseled about the polypharmacy and she agreed to discontinue Effexor. This is a white ambulatory female with good hygiene. She moves around with the help of a walker since she had a fracture of the patella. She does not show any psychomotor agitation or retardation. Her speech is spontaneous relevant and goal-directed. Her mood is cheerful and became almost tearful when she was talking about her daughter becoming a stripper and her father dying 2 years ago. She denies hallucinations and delusional thinking. She denies suicide and homicide thoughts. Actually she is too keen on going home so that she can have telephone interview for food stamps. She is well oriented with adequate memory concentration etc. Assessment: The diagnosis of Bro. depression recurrent appears to be erroneous. Adjustment disorder with disturbance of emotions and conduct F 43.25 Cannabis use disorder moderate to severe F 12.20. 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 Consider discharge tomorrow if everything goes well today.
[2017-06-25] MEDS: FOLIC ACID 1 MG TAB PO SCH (13:11)
[2017-06-25] MEDS: AMITRIPTYLINE HCL 10 MG TAB PO SCH ×2 (20:53→23:07)
[2017-06-25] MEDS: GABAPENTIN 300 MG CAP PO SCH (20:54)
[2017-06-25] MEDS: [UNRECOGNIZED DRUG - OTHER] PO SCH (22:03)
[2017-06-26] MEDS: LEVOTHYROXINE 25 MCG TAB PO SCH (05:38)
[2017-06-26 06:38] VITALS: BP 107/53; PULSE 58; RESP 14
[2017-06-26] MEDS: PSYLLIUM HUSK 100% 6 GM PACKET PO SCH (08:28)
[2017-06-26] MEDS: [UNRECOGNIZED DRUG - OTHER] PO SCH (08:28)
--- NOTE | 2017-06-26 10:06 | P.DS ---
Providers Date of admission: 06/23/17 16:23 Expected date of discharge: 06/26/17 Attending physician: Viktor Rodrigez Consults: 06/23/17 16:34 Consult Physician Routine Consulting Provider: Nicole Wallace Consult Reason/Comments: H&P for mental health admission Do you want consulting provider notified?: Yes Primary care physician: [facility] Course: Patient had her psychiatric evaluation done by , had her physical examination and psychosocial evaluation. After psychiatric evaluation her home medications were continued and was also started on Effexor by Dr. Lo.. I saw her yesterday and she was counseled about her condition and polypharmacy and it was agreed to discontinue Effexor and continue her home medications of amitriptyline and Neurontin plus Synthroid psyllium etc. Patient attended groups socialized with peers and interacted with staff members. She continued to deny suicidal and homicidal thoughts and agreed to continue with outpatient treatment. In view of these it was agreed to discharge her. Condition on discharge: This is a white ambulatory female with good hygiene. She uses the walker to ambulate. She does not show any psychomotor agitation or retardation. Her speech is spontaneous relevant and goal-directed. Her mood is euthymic and affect is appropriate. She denies hallucinations, delusional thinking, suicidal and homicidal thoughts. She is well oriented with good memory concentration general fund of knowledge etc. her insight and judgment are adequate. Diagnosis on discharge: Adjustment disorder with disturbance of emotions and conduct F 43.25. Cannabis use disorder moderate to severe F 12.20. 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 NKDA. History of fibromyalgia. Chronic constipation. 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 Plan - Discharge Summary Discharge Rx Participant: No New Discharge Prescriptions: Continue Amitriptyline HCl [Elavil] 30 mg PO HS Levothyroxine Sodium [Synthroid] 25 mcg PO DAILY Gabapentin [Neurontin] 600 mg PO HS Hematinic-F 324mg/1mg 1 tab PO DAILY Discontinued Dextroamphetamine/Amphetamine [Adderall] 20 mg PO BID ALPRAZolam [Xanax] 0.5 mg PO TID PRN PRN Reason: Anxiety DULoxetine HCL [Cymbalta] 60 mg PO DAILY Discharge Medication List Amitriptyline HCl [Elavil] 30 mg PO HS 03/17/16 [History] Gabapentin [Neurontin] 600 mg PO HS 03/17/16 [History] Levothyroxine Sodium [Synthroid] 25 mcg PO DAILY 03/17/16 [History] Hematinic-F 324mg/1mg 1 tab PO DAILY 06/23/17 [History] Follow up Appointment(s)/Referral(s): [facility] [Outside] - 1 Week (06/27/17 at 5:30 pm with Mary) Jeremi Ferreira DO [Primary Care Provider] - 1-2 days
== END 2017-06-26 11:05 | disposition home or self-care (01) | DRG 882 ==
LOC: EC 12:31 → 3MHU 16:23
PROVIDERS: ADMIT Psychiatry & Neurology Psychiatry; ATTEND Psychiatry & Neurology Psychiatry
DX: F43.25 Adjustment disorder with mixed disturbance of emotions and conduct (principal); R45.851 Suicidal ideations; F60.9 Personality disorder, unspecified; E03.9 Hypothyroidism, unspecified; F12.20 Cannabis dependence, uncomplicated; F43.10 Post-traumatic stress disorder, unspecified; F90.9 Attention-deficit hyperactivity disorder, unspecified type; M06.9 Rheumatoid arthritis, unspecified; K59.09 Other constipation; Z96.651 Presence of right artificial knee joint; M79.7 Fibromyalgia; Z79.899 Other long term (current) drug therapy; Z80.8 Family history of malignant neoplasm of other organs or systems; Z82.49 Family history of ischemic heart disease and other diseases of the circulatory system; Z82.61 Family history of arthritis; Z87.81 Personal history of (healed) traumatic fracture; Z79.890 Hormone replacement therapy
CPT/HCPCS: 36415; 80053; 80306; 81003; 81025; 82075; 84443; 85027; 93005; 99285

== ENCOUNTER 2017-10-10 14:09 | Emergency (ER) | payer BC ==
[2017-10-10] MEDS ORDERED: SODIUM CHLORIDE 0.9% 500 ML IV STA (14:27)
[2017-10-10] MEDS ORDERED: FAMOTIDINE 20 MG/2 ML VIAL IV STA (14:27)
[2017-10-10] MEDS ORDERED: diphenhydrAMINE 50 MG/ML 1 ML VIAL IVP STA (14:27)
[2017-10-10] MEDS ORDERED: methylPREDNISolone SOD SUCCI 125 MG/2 ML VIAL IV STA (14:27)
--- NOTE | 2017-10-10 16:07 | ED ---
General Adult HPI - General Chief complaint: Allergic Reaction Stated complaint: allergic reaction Time Seen by Provider: 10/10/17 14:19 Source: patient, RN notes reviewed, old records reviewed Mode of arrival: ambulatory Limitations: no limitations - History of Present Illness Initial comments: This is a 47-year-old female to ER for evaluation regards to bee sting. Patient has prior history of bases with no prior ALLERGIC reaction. Patient was under right shoulder, denies shortness of breath Chest pain. Patient states she has had significant hives throughout body. She did not take any medications prior to arrival - Related Data Home Medications Medication Instructions Recorded Confirmed Levothyroxine Sodium [Synthroid] 25 mcg PO DAILY 03/17/16 10/10/17 Hematinic-F 324mg/1mg 1 tab PO DAILY 06/23/17 10/10/17 Cyclobenzaprine [Flexeril] 10 mg PO HS 10/10/17 10/10/17 Gabapentin [Neurontin] 900 mg PO HS 10/10/17 10/10/17 Previous Rx's Medication Instructions Recorded Famotidine [Pepcid] 20 mg PO BID #28 tablet 10/10/17 diphenhydrAMINE [Benadryl] 50 mg PO QID PRN #20 capsule 10/10/17 predniSONE 50 mg PO DAILY #5 tab 10/10/17 Allergies Allergy/AdvReac Type Severity Reaction Status Date / Time No Known Allergies Allergy Verified 10/10/17 15:04 Review of Systems ROS Statement: Those systems with pertinent positive or pertinent negative responses have been documented in the HPI. ROS Other: All systems not noted in ROS Statement are negative. Past Medical History Past Medical History: Fibromyalgia, Osteoarthritis (OA), Thyroid Disorder Additional Past Medical History / Comment(s): HX OF FX RIGHT KNEE WITH SURGERY AND RE-INJURED KNEE-uses cane. History of Any Multi-Drug Resistant Organisms: None Reported Past Surgical History: Cholecystectomy, Joint Replacement, Tubal Ligation Additional Past Surgical History / Comment(s): LEFT KNEE ARTHROSCOPIC , PARTIAL RIGHT KNEE REPLACEMENT, ORIF RIGHT KNEE FX (05/17/16, 06/19/201607/2016) Past Anesthesia/Blood Transfusion Reactions: Postoperative Nausea & Vomiting ( PONV) Past Psychological History: ADD/ADHD, Anxiety, Depression, PTSD Smoking Status: Never smoker - Past Family History Mother Family Medical History: Cancer Additional Family Medical History / Comment(s): Mother is alive at age 73 with history of hysterectomy in her 40s for noncancerous reason. Sister(s) Family Medical History: Cancer, Rheumatoid Arthritis (RA) Additional Family Medical History / Comment(s): Patient has one half sister with rheumatoid arthritis and one half-sister with history of bone cancer status post bone marrow transplant. Father Additional Family Medical History / Comment(s): Father at age 80 from heart failure with history of coronary artery disease status post 4 vessel CABG. General Exam - General Exam Comments Initial Comments: Diffuse urticaria, no stridor, no facial swelling Limitations: no limitations General appearance: alert, in no apparent distress Head exam: Present: atraumatic, normocephalic, normal inspection Eye exam: Present: normal appearance, PERRL, EOMI. Absent: scleral icterus, conjunctival injection, periorbital swelling ENT exam: Present: normal exam, mucous membranes moist Neck exam: Present: normal inspection. Absent: tenderness, meningismus, lymphadenopathy Respiratory exam: Present: normal lung sounds bilaterally. Absent: respiratory distress, wheezes, rales, rhonchi, stridor Cardiovascular Exam: Present: regular rate, normal rhythm, normal heart sounds. Absent: systolic murmur, diastolic murmur, rubs, gallop, clicks GI/Abdominal exam: Present: soft, normal bowel sounds. Absent: distended, tenderness, guarding, rebound, rigid Extremities exam: Present: normal inspection, full ROM, normal capillary refill. Absent: tenderness, pedal edema, joint swelling, calf tenderness Back exam: Present: normal inspection Neurological exam: Present: alert, oriented X3, CN II-XII intact Psychiatric exam: Present: normal affect, normal mood Skin exam: Present: warm, dry, intact, normal color. Absent: rash Course Vital Signs 10/10/17 10/10/17 14:13 16:31 Temperature 98.3 F 98.2 F Pulse Rate 97 76 Respiratory 22 18 Rate Blood Pressure 125/76 115/62 O2 Sat by Pulse 97 100 Oximetry - Reevaluation(s) Reevaluation #1: Patient symptoms are resolved here in the emergency room Medical Decision Making - Medical Decision Making 47 female the ER for bee sting. Patient is given medication here in the ER with resolution of symptoms, no stridor no shortness of breath urticaria resolved. Patient will be discharged home to continue outpatient management Disposition Clinical Impression: Allergic reaction, Allergic reaction to insect sting Disposition: HOME SELF-CARE Condition: Good Instructions: Insect Bite or Sting (ED) Prescriptions: diphenhydrAMINE [Benadryl] 50 mg PO QID PRN #20 capsule PRN Reason: itching/rash Famotidine [Pepcid] 20 mg PO BID #28 tablet predniSONE 50 mg PO DAILY #5 tab Is patient prescribed a controlled substance at d/c from ED?: No Referrals: Jeremi Ferreira DO [Primary Care Provider] - 1-2 days
--- NOTE | 2017-10-10 16:24 | ED ---
General Adult HPI - General Chief complaint: Allergic Reaction Stated complaint: allergic reaction Time Seen by Provider: 10/10/17 14:19 Source: patient Mode of arrival: ambulatory Limitations: no limitations - Related Data Home Medications Medication Instructions Recorded Confirmed Levothyroxine Sodium [Synthroid] 25 mcg PO DAILY 03/17/16 10/10/17 Hematinic-F 324mg/1mg 1 tab PO DAILY 06/23/17 10/10/17 Cyclobenzaprine [Flexeril] 10 mg PO HS 10/10/17 10/10/17 Gabapentin [Neurontin] 900 mg PO HS 10/10/17 10/10/17 Previous Rx's Medication Instructions Recorded Famotidine [Pepcid] 20 mg PO BID #28 tablet 10/10/17 diphenhydrAMINE [Benadryl] 50 mg PO QID PRN #20 capsule 10/10/17 predniSONE 50 mg PO DAILY #5 tab 10/10/17 Allergies Allergy/AdvReac Type Severity Reaction Status Date / Time No Known Allergies Allergy Verified 10/10/17 15:04 Review of Systems ROS Statement: Those systems with pertinent positive or pertinent negative responses have been documented in the HPI. ROS Other: All systems not noted in ROS Statement are negative. Past Medical History Past Medical History: Fibromyalgia, Osteoarthritis (OA), Thyroid Disorder Additional Past Medical History / Comment(s): HX OF FX RIGHT KNEE WITH SURGERY AND RE-INJURED KNEE-uses cane. History of Any Multi-Drug Resistant Organisms: None Reported Past Surgical History: Cholecystectomy, Joint Replacement, Tubal Ligation Additional Past Surgical History / Comment(s): LEFT KNEE ARTHROSCOPIC , PARTIAL RIGHT KNEE REPLACEMENT, ORIF RIGHT KNEE FX (05/17/16, 06/19/201607/2016) Past Anesthesia/Blood Transfusion Reactions: Postoperative Nausea & Vomiting ( PONV) Past Psychological History: ADD/ADHD, Anxiety, Depression, PTSD Smoking Status: Never smoker - Past Family History Mother Family Medical History: Cancer Additional Family Medical History / Comment(s): Mother is alive at age 73 with history of hysterectomy in her 40s for noncancerous reason. Sister(s) Family Medical History: Cancer, Rheumatoid Arthritis (RA) Additional Family Medical History / Comment(s): Patient has one half sister with rheumatoid arthritis and one half-sister with history of bone cancer status post bone marrow transplant. Father Additional Family Medical History / Comment(s): Father at age 80 from heart failure with history of coronary artery disease status post 4 vessel CABG. General Exam Limitations: no limitations Course Vital Signs 10/10/17 10/10/17 14:13 16:31 Temperature 98.3 F 98.2 F Pulse Rate 97 76 Respiratory 22 18 Rate Blood Pressure 125/76 115/62 O2 Sat by Pulse 97 100 Oximetry Disposition Clinical Impression: Allergic reaction, Allergic reaction to insect sting Disposition: HOME SELF-CARE Condition: Good Instructions: Insect Bite or Sting (ED) Prescriptions: diphenhydrAMINE [Benadryl] 50 mg PO QID PRN #20 capsule PRN Reason: itching/rash Famotidine [Pepcid] 20 mg PO BID #28 tablet predniSONE 50 mg PO DAILY #5 tab Is patient prescribed a controlled substance at d/c from ED?: No Referrals: Jeremi Ferreira DO [Primary Care Provider] - 1-2 days
[2017-10-10 16:32] VITALS: BP 115/62; PULSE 76; RESP 18; TEMP 98.2
== END 2017-10-10 16:33 | disposition home or self-care (01) ==
LOC: EC 14:09
DX: T63.441A Toxic effect of venom of bees, accidental (unintentional), initial encounter (principal); E07.9 Disorder of thyroid, unspecified; M79.7 Fibromyalgia; F41.9 Anxiety disorder, unspecified; Z96.651 Presence of right artificial knee joint; Z79.899 Other long term (current) drug therapy
CPT/HCPCS: 99283; 96374; 96375 ×2; 96361 ×2; J1200; J2930

== ENCOUNTER → 2017-11-01 | Outpatient (CLI) | payer BC ==
[2017-11-02 10:39] LABS: Paper Wasp IgE <0.35 kU/L (<0.35); Paper Wasp IgE Class CLASS 0; Yellow Hornet IgE <0.35 kU/L (<0.35); Yellow Jacket IgE Class CLASS II
== END | disposition home or self-care (01) ==
LOC: LABWHC1 14:09
PROVIDERS: ATTEND Allergy & Immunology
DX: T63.441A Toxic effect of venom of bees, accidental (unintentional), initial encounter (principal)
CPT/HCPCS: 36415; 82785; 86003

== ENCOUNTER → 2018-04-11 | Outpatient (CLI) | payer BC ==
[2018-04-11 15:16] LABS: Basophils % (A) 1 %; Eosinophils # (A) 0.1 k/uL (0-0.7); Eosinophils % (A) 1 %; HCT 41.1 % (34.0-46.0); HGB 13.2 gm/dL (11.4-16.0); Lymphocytes # (A) 1.4 k/uL (1.0-4.8); Lymphocytes % (A) 24 %; MCH 28.2 pg (25.0-35.0); MCV 87.9 fL (80.0-100.0); Mean Platelet Volume 7.2; Monocytes # (A) 0.5 k/uL (0-1.0); Monocytes % (A) 9 %; Neutrophils # (A) 3.6 k/uL (1.3-7.7); Neutrophils % (A) 63 %; Platelet Count 249 k/uL (150-450); RBC 4.68 m/uL (3.80-5.40); RDW 13.6 % (11.5-15.5); WBC 5.7 k/uL (3.8-10.6)
== END | disposition home or self-care (01) ==
LOC: LABPAT 15:00
PROVIDERS: ATTEND Obstetrics & Gynecology
DX: Z01.812 Encounter for preprocedural laboratory examination (principal)
CPT/HCPCS: 36415; 85025

== ENCOUNTER 2018-04-25 06:23 | Day surgery (SDC) | payer BC, OTHER ==
[2018-04-19 11:54] VITALS: BMI 26.9
--- NOTE | 2018-04-24 18:32 | P.HPOB ---
History of Present Illness H&P Date: 04/24/18 Chief Complaint: Menorrhagia with regular cycle This is a 48-year-old female 3 para 3 who presents for dilation and curettage with hysteroscopy and NovaSure endometrial ablation secondary to menorrhagia with regular cycle. She complains of menses occurring every 21 days lasting 3-4 days but very heavy. She changes a large pad approximate 5 times a day and has some clotting. She has tried oral contraceptives but became too emotional with them. Her pelvic ultrasound shows a uterus measuring 7.7 x 5.7 x 4.4 cm an endometrial stripe thickness of 8 mm. She did have a fibroid noted on the left side measuring 2.9 x 2.7 cm. Both ovaries were normal with small follicles noted. She has requested definitive surgical treatment to treat this problem. She has had a previous tubal ligation. Obstetrical history: . History of 3 vaginal deliveries. Gynecologic history: No history of sexual transmitted diseases. She has had a tubal ligation. She has had a current partner for 2 years. Social history: She is . She currently has a steady partner. She is on disability. Review of Systems Constitutional: Reports night sweats, Denies chills, Denies fever Eyes: bilateral blurred vision, denies as per HPI, denies bulging eye, denies decreased vision, denies diplopia, denies discharge, denies dry eye, denies irritation, denies itching, denies pain, denies photophobia, denies loss of peripheral vision, denies loss of vision, denies tunnel vision/blind spots Ears, nose, mouth and throat: Denies headache, Denies sore throat Cardiovascular: Denies chest pain, Denies shortness of breath Respiratory: Denies cough Gastrointestinal: Reports constipation Genitourinary: Reports dysmenorrhea, Reports menorrhagia, Reports stress incontinence Menstruation: Reports period heavy Musculoskeletal: Reports low back pain Integumentary: Denies pruritus, Denies rash Neurological: Denies numbness, Denies weakness Psychiatric: Reports depression, Reports irritability Past Medical History Past Medical History: Fibromyalgia, Osteoarthritis (OA), Thyroid Disorder Additional Past Medical History / Comment(s): HX OF FX RIGHT KNEE WITH SURGERY X3 AND REMOVAL OF RIGHT PATELLA - uses crutches, cane or walker PRN. "Right leg cannot hang needs to be supported at all times." Tendonitis right hand. History of Any Multi-Drug Resistant Organisms: None Reported Past Surgical History: Cholecystectomy, Joint Replacement, Tubal Ligation Additional Past Surgical History / Comment(s): LEFT KNEE ARTHROSCOPIC , PARTIAL RIGHT KNEE REPLACEMENT, ORIF RIGHT KNEE FX (05/17/16, 06/19/201607/2016) Past Anesthesia/Blood Transfusion Reactions: Postoperative Nausea & Vomiting ( PONV) Past Psychological History: ADD/ADHD, Anxiety, Depression, PTSD Smoking Status: Never smoker Past Alcohol Use History: None Reported Past Drug Use History: Marijuana Additional Drug Use History / Comment(s): OCCASIONAL MEDICAL MARIJUANA USE. AWARE NOT TO USE 24 HRS PRIOR TO PROCEDURE. - Past Family History Mother Family Medical History: Cancer Additional Family Medical History / Comment(s): Mother is alive at age 73 with history of hysterectomy in her 40s for noncancerous reason. Sister(s) Family Medical History: Cancer, Rheumatoid Arthritis (RA) Additional Family Medical History / Comment(s): Patient has one half sister with rheumatoid arthritis and one half-sister with history of bone cancer status post bone marrow transplant. Father Additional Family Medical History / Comment(s): Father at age 80 from heart failure with history of coronary artery disease status post 4 vessel CABG. Medications and Allergies Home Medications Medication Instructions Recorded Confirmed Type Levothyroxine Sodium [Synthroid] 25 mcg PO QAM 03/17/16 04/19/18 History Hematinic-F 324mg/1mg 1 tab PO DAILY 06/23/17 04/19/18 History Cyclobenzaprine [Flexeril] 10 mg PO HS 10/10/17 04/19/18 History Gabapentin [Neurontin] 900 mg PO HS 10/10/17 04/19/18 History Dextroamphetamine/Amphetamine 20 mg PO BID 04/19/18 04/19/18 History [Adderall] Allergies Allergy/AdvReac Type Severity Reaction Status Date / Time No Known Allergies Allergy Verified 04/19/18 11:41 Exam Osteopathic Statement: *. No significant issues noted on an osteopathic structural exam other than those noted in the History and Physical/Consult. HEENT: Within normal limits Heart: Regular rate and rhythm Lungs: Clear to auscultation bilaterally Abdomen: Soft, nontender Pelvic exam: Uterus is small, anteverted, with no adnexal masses or tenderness noted. Extremities: Negative Homans Assessment and Plan (1) Menorrhagia with regular cycle Status: Acute Code(s): N92.0 - EXCESSIVE AND FREQUENT MENSTRUATION WITH REGULAR CYCLE SNOMED Code(s): 972553551 Plan: Proceed with dilation and curettage with hysteroscopy and NovaSure endometrial ablation. I have discussed the risks, benefits, and alternative therapies for the above- mentioned procedure and for both sedation/anesthesia as well as necessary blood products administration, if indicated, as they pertain to this patient. The patient has indicated her understanding and acceptance of the risks and procedures discussed.
[~2018-04-25 06:23] MED LIST changes: +DEXAMETHASONE SOD PHOSPHATE 10 MG/ML 1 ML VIAL IV ONE; +LACTATED RINGERS 1,000 ML IV SCH; +LIDOCAINE 1% 20 ML VIAL (10MG/ML) FOR IV START INTRADERMA PRN; +ONDANSETRON 4 MG/2 ML VIAL IVP ONE; +Pre Op ABX Message 1 EACH MISC MISCELLANE ONE; +SCOPOLAMINE 1.5MG/72HR PATCH TRANSDERM ONE; -ceFAZolin 2 GM in SODIUM CHLORIDE 0.9% 100 ML IVPB ONE
[2018-04-25] MEDS ORDERED: MIDAZOLAM 2 MG/2 ML VIAL IVP ONE (07:13)
[2018-04-25] MEDS ORDERED: PROPOFOL 10 MG/ML 20 ML VIAL IV ONE (07:30)
[2018-04-25] MEDS ORDERED: MIDAZOLAM 2 MG/2 ML VIAL ONE (07:30)
[2018-04-25] MEDS ORDERED: fentaNYL (PF) 50 MCG/ML 2 ML AMP ONE (07:30)
[2018-04-25] MEDS ORDERED: KETOROLAC 30 MG/ML 1 ML VIAL ONE (07:30)
[2018-04-25] MEDS ORDERED: LIDOCAINE 1% INJ 10MG/ML (20 ML MDV) ONE (07:30)
--- NOTE | 2018-04-25 08:03 | P.OP ---
Date of Procedure: 04/25/18 Preoperative Diagnosis: Menorrhagia with regular cycle Postoperative Diagnosis: Same Procedure(s) Performed: Dilation and curettage with hysteroscopy and NovaSure endometrial ablation Anesthesia: other (LMA general) Surgeon: Kendra Robertson Estimated Blood Loss (ml): 5 Pathology: other (Endometrial curettings) Condition: stable Disposition: same day Indications for Procedure: This is a 48-year-old female 3 para 3 who presents for dilation and curettage with hysteroscopy and NovaSure endometrial ablation secondary to menorrhagia with regular cycle. She complains of menses occurring every 21 days lasting 3-4 days but very heavy. She changes a large pad approximate 5 times a day and has some clotting. She has tried oral contraceptives but became too emotional with them. Her pelvic ultrasound shows a uterus measuring 7.7 x 5.7 x 4.4 cm an endometrial stripe thickness of 8 mm. She did have a fibroid noted on the left side measuring 2.9 x 2.7 cm. Both ovaries were normal with small follicles noted. She has requested definitive surgical treatment to treat this problem. She has had a previous tubal ligation. Operative Findings: Uterus is mid position, sounded to 9 centimeters. Cervix is sounded to 3 cm. Upon hysteroscopy, both tubal ostia are visualized. No specific abnormalities are visible. A moderate to large amount of endometrial curettings are obtained. Description of Procedure: The patient is taken to the operating room. She is placed in the dorsal lithotomy position after general anesthesia was given. She is prepped and draped in the normal sterile fashion. Bladder is drained with a catheter and then removed. Pelvic exam is performed under anesthesia. Uterus is found to be mid to retroverted with no adnexal masses. She is placed in slight Trendelenburg position. A right angle retractor is used to visualize the cervix. The anterior lip of the cervix is grasped with a single-tooth tenaculum. Cervix is sounded to 3 cm. Uterus is sounded to 9 cm. Cervix is gently dilated with Romreo dilators until a hysteroscope could be passed. Hysteroscopy is performed using normal saline. The above noted findings are noted. Next a polyp forceps is introduced. A moderate amount of tissue was obtained. Next medium-sized size sharp curette was placed. A moderate to large amount of endometrial curettings were obtained. Next NovaSure array was inserted into the endometrial cavity. Length was set at 6 cm and width was determined to be 4.9 cm. Next cavity assessment was completed and passed on the first try. Next NovaSure array was fired at 162 W for 51 seconds. Next the array was removed, inspected and then discarded. Next the hysteroscope was reinserted. Uniform charring was noted. Pictures were taken. Hysteroscope was removed. Single-tooth tenaculum was removed from the anterior lip of the cervix. Minimal bleeding was noted. All other instruments removed from the vagina. Sponge counts were correct. Patient is taken to recovery room in stable condition.
[2018-04-25 08:22] VITALS: RESP 16; TEMP 97
[2018-04-25] MEDS: HYDROmorphone 0.5 MG/0.5 ML SYRINGE IVP PRN ×3 (08:35→09:41)
[2018-04-25] MEDS ORDERED: ONDANSETRON 4 MG/2 ML VIAL IVP ONE (09:49)
[2018-04-25] MEDS ORDERED: HYDROcodone/APAP 7.5-325MG 1 EACH TAB PO ONE (10:06)
[2018-04-25 10:41] VITALS: BP 110/68; PULSE 73
== END 2018-04-25 10:58 | disposition home or self-care (01) ==
LOC: OR 06:23
PROVIDERS: ATTEND Obstetrics & Gynecology
DX: D25.9 Leiomyoma of uterus, unspecified (principal); N92.0 Excessive and frequent menstruation with regular cycle; N94.6 Dysmenorrhea, unspecified; M79.7 Fibromyalgia; M19.90 Unspecified osteoarthritis, unspecified site; E07.9 Disorder of thyroid, unspecified; F90.9 Attention-deficit hyperactivity disorder, unspecified type; F41.9 Anxiety disorder, unspecified; F32.9 Major depressive disorder, single episode, unspecified; F43.10 Post-traumatic stress disorder, unspecified; Z80.8 Family history of malignant neoplasm of other organs or systems; Z82.49 Family history of ischemic heart disease and other diseases of the circulatory system; G89.29 Other chronic pain; R26.2 Difficulty in walking, not elsewhere classified; Z79.890 Hormone replacement therapy; Z79.899 Other long term (current) drug therapy
CPT/HCPCS: 88305; 58563; J2250; J1100; J2405; J2001; J3010; J1885; J2704; J1170

== ENCOUNTER → 2019-04-02 | Outpatient (CLI) | payer OTHER ==
--- NOTE | 2019-04-02 16:10 | US ---
EXAMINATION TYPE: US pelvic complete DATE OF EXAM: 04/02/2019 COMPARISON: US 02/07/2016 CLINICAL HISTORY: N92.1 Excessive and frequent menstruation with irr. Patient is scheduled for a hyst erectomy in 2 weeks, preop evaluation. Irregular cycles, ablation 1 year ago that did not work per pa tient TECHNIQUE: . Transabdominal sonographic images of the pelvis were acquired. Date of LMP: A few days ago EXAM MEASUREMENTS: Uterus: 8.1 x 4.5 x 5.5 cm Endometrial Stripe: 0.5 cm Right Ovary: 2.1 x 1.4 x 5.3 cm Left Ovary: 3.2 x 2.2 x 2.9 cm 1. Uterus: Anteverted Heterogeneous 2. Endometrium: wnl 3. Right Ovary: wnl 4. Left Ovary: Cyst visualized measuring 2.4 x 1.4 x 2.2 cm 5. Bilateral Adnexa: wnl 6. Posterior cul-de-sac: wnl Grayscale and color Doppler imaging performed of the left ovary. IMPRESSION: Left ovarian cystic focus measures 2.4 cm.
== END | disposition home or self-care (01) ==
LOC: RADUSMAIN 14:43
PROVIDERS: ATTEND Obstetrics & Gynecology
DX: N83.202 Unspecified ovarian cyst, left side (principal)
CPT/HCPCS: 76856

== ENCOUNTER → 2019-04-29 | Outpatient (CLI) | payer OTHER ==
[2019-04-29 12:23] LABS: Basophils % (A) 1 %; Eosinophils # (A) 0.1 k/uL (0-0.7); Eosinophils % (A) 2 %; HCT 40.9 % (34.0-46.0); HGB 13.4 gm/dL (11.4-16.0); Lymphocytes # (A) 1.3 k/uL (1.0-4.8); Lymphocytes % (A) 27 %; MCH 28.6 pg (25.0-35.0); MCHC 32.7 g/dL (31.0-37.0); MCV 87.4 fL (80.0-100.0); Mean Platelet Volume 7.4; Monocytes # (A) 0.4 k/uL (0-1.0); Monocytes % (A) 7 %; Neutrophils # (A) 3.1 k/uL (1.3-7.7); Neutrophils % (A) 62 %; Platelet Count 277 k/uL (150-450); RBC 4.68 m/uL (3.80-5.40); RDW 12.2 % (11.5-15.5)
[2019-04-29 12:32] LABS: African American GFR (CKD) >90 (>60 ml/min/1.73 sqM); Anion Gap 10 mmol/L; Blood Urea Nitrogen 9 mg/dL (7-17); Calcium 8.8 mg/dL (8.4-10.2); Carbon Dioxide 27 mmol/L (22-30); Chloride 101 mmol/L (98-107); Glucose 126 mg/dL (74-99); Non-African American GFR(CKD) >90 (>60 ml/min/1.73 sqM); Potassium 4.6 mmol/L (3.5-5.1); Sodium 138 mmol/L (137-145)
== END | disposition home or self-care (01) ==
LOC: LABPAT 11:08
PROVIDERS: ATTEND Obstetrics & Gynecology
DX: Z01.812 Encounter for preprocedural laboratory examination (principal)
CPT/HCPCS: 36415; 80048; 85025

== ENCOUNTER 2019-05-08 05:38 | Observation (INO) | payer OTHER ==
[2019-05-05 14:15] VITALS: BMI 29.2
[2019-05-09 08:48] VITALS: BP 110/55; PULSE 72; RESP 12; TEMP 97.9
== END 2019-05-09 10:45 | disposition home or self-care (01) ==
LOC: OR 05:38 → 6PED 08:45 → OR 05-09 04:31
PROVIDERS: ADMIT Obstetrics & Gynecology; ATTEND Obstetrics & Gynecology
DX: N80.0 Endometriosis of uterus (principal); N92.0 Excessive and frequent menstruation with regular cycle; M79.7 Fibromyalgia; M19.90 Unspecified osteoarthritis, unspecified site; E03.9 Hypothyroidism, unspecified; Z98.890 Other specified postprocedural states; Z91.040 Latex allergy status; Z79.890 Hormone replacement therapy; Z79.899 Other long term (current) drug therapy; Z87.81 Personal history of (healed) traumatic fracture; Z87.828 Personal history of other (healed) physical injury and trauma; Z99.89 Dependence on other enabling machines and devices; Z86.2 Personal history of diseases of the blood and blood-forming organs and certain disorders involving the immune mechanism; Z90.49 Acquired absence of other specified parts of digestive tract; Z96.651 Presence of right artificial knee joint; Z98.51 Tubal ligation status; Z86.19 Personal history of other infectious and parasitic diseases; Z91.89 Other specified personal risk factors, not elsewhere classified; Z91.09 Other allergy status, other than to drugs and biological substances; Z79.891 Long term (current) use of opiate analgesic; Z80.9 Family history of malignant neoplasm, unspecified; Z84.2 Family history of other diseases of the genitourinary system; Z82.49 Family history of ischemic heart disease and other diseases of the circulatory system
CPT/HCPCS: 81025; 86900; 86901; 85025; 86850; 88307; 58571; G0378; J2250; J1200; J1100; J2710; J0690; J2405; J2001; J2274; J3010; J1885 ×2; J2704

== ENCOUNTER → 2019-09-16 | Outpatient (CLI) | payer OTHER ==
[2019-09-16 13:06] VITALS: BP 112/72; PULSE 61; RESP 16
--- NOTE | 2019-09-16 13:33 | P.PAINCN ---
History of Present Illness - Reason for Consult Consult date: 09/16/19 - History of Present Illness This is a 49-year-old patient referred by Dr. Noel with a chief complaint of chronic pain in bilateral neck with radiation to bilateral outer arm, up to elbows, left greater than right. Pain began in 2016 with no inciting event. Pain is described as dull, tight pain, pain is worse with activity and better with heat and ice, medications and relaxing. Pain is associated with numbness and tingling on the outer aspect of arms up to elbow. 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 Patient has been taking medications from Dr. Mackey including Neurontin 400 mg 3 times a day, [place] 10/325 mg twice a day , Flexeril 10 mg daily. She also uses medical marijuana for pain. Patient denies adverse drug effects from medications. Patient also denies new-onset weakness, bowel/bladder incontinence, or any other signs or symptoms of cauda equina syndrome. There are no signs of acute intoxication, and no indications of medication diversion or overuse. Of note, she has been diagnosed with fibromyalgia and also has chronic right knee painshe has undergone several surgeries for her right knee Patient has not had surgery. Patient has had injections previously, specifically cervical epidural steroid injections done at [facility] approximately 4 years ago, patient reports she had good benefit from these procedures. Patient has had physical therapy in 2016, she did not report significant relief from this In addition to above, 13-point review of systems is also negative for chest pain, shortness of breath, changes in vision, changes in hearing, new onset weakness, abdominal pain, diarrhea, extreme fatigue, malaise, fever, skin changes, homicidal or suicidal ideation, or bowel or bladder incontinence. Physical exam: Vital Signs: Reviewed in EMR GENERAL: Well appearing, in no acute distress, cane by her side PSYCH: Mood and affect is appropriate. Awake, alert, and oriented SKIN: Skin color, texture, turgor normal, no rashes or lesions HEENT: Normocephalic, atraumatic. EOM intact CV: No pedal edema RESP: Respirations are unlabored, no audible wheezing GI: Abdomen non-distended MUSCULOSKELETAL: Bilateral upper extremity strength is normal and symmetric. No atrophy or tone abnormalities are noted. Neck: Tenderness to palpation over the cervical paraspinous muscles bilaterally. Spurling negative, Wynn's sign negative. Normal cervical lordotic curve and mildly limited cervical spine range of motion in all directions Extremities: Peripheral joint ROM is full and pain free without obvious instability or laxity in upper extremities. No edema or skin discolorations noted. She is wearing a knee brace on the right knee NEUR: Bilateral upper extremity coordination and muscle stretch reflexes are physiologic and symmetric. No loss of sensation is noted. Cranial nerves are grossly intact. Imaging: MRI cervical spine done at [facility] on 09/10/2019 shows broad-based disc bulge with central focal protrusion at C5-C6. Assessment: 1. Cervical degenerative disc disease, cervical radiculitis 2. Chronic use of high-risk medications including opioids Plan: 1. Explanation: Diagnoses, prognoses, and multiple treatment options including but not limited to physical therapy, interventional therapies, medication management and surgery were discussed with the patient and all questions were answered to the patient's satisfaction. 2. Investigations: MRI cervical spine reviewed 3. Procedures: Will schedule C7-T1 epidural steroid injection, left paramedian approach at next available 4. Consultations: None 5. Medications: Managed by Dr. Mackey 6. Disposition: For above-mentioned procedure Past Medical History Past Medical History: Fibromyalgia, Osteoarthritis (OA), Thyroid Disorder Additional Past Medical History / Comment(s): HX OF FX RIGHT KNEE WITH SURGERY AND RE-INJURED KNEE-HAS A KNEE BRACE AND USES CANE History of Any Multi-Drug Resistant Organisms: None Reported Past Surgical History: Cholecystectomy, Hysterectomy, Joint Replacement, Orthopedic Surgery, Tubal Ligation Additional Past Surgical History / Comment(s): LEFT KNEE ARTHROSCOPIC , PARTIAL RIGHT KNEE REPLACEMENT, ORIF RIGHT KNEE FX (05/17/16, 06/19/201607/2016) Past Anesthesia/Blood Transfusion Reactions: Postoperative Nausea & Vomiting (PONV) Smoking Status: Never smoker - Past Family History Sister(s) Family Medical History: Cancer, Rheumatoid Arthritis (RA) Additional Family Medical History / Comment(s): Patient has one half sister with rheumatoid arthritis and one half-sister with history of bone cancer status post bone marrow transplant. Mother Family Medical History: Cancer Additional Family Medical History / Comment(s): Had a hysterectomy. In remission. Father Family Medical History: Congestive Heart Failure (CHF), Coronary Artery Disease (CAD) Additional Family Medical History / Comment(s): Father at age 80 from heart failure with history of coronary artery disease status post 4 vessel CABG. Medications and Allergies Home Medications Medication Instructions Recorded Confirmed Type Levothyroxine Sodium [Synthroid] 25 mcg PO QAM 03/17/16 09/10/19 History Hematinic-F 324mg/1mg 1 tab PO DAILY 06/23/17 09/10/19 History Cyclobenzaprine [Flexeril] 10 mg PO BID PRN 10/10/17 09/10/19 History Dextroamphetamine/Amphetamine 20 mg PO BID 04/19/18 09/10/19 History [Adderall] HYDROcodone/APAP 10-325MG [[place]ce[place] 1 tab PO BID PRN 05/05/19 09/16/19 History 10-325] Psyllium Husk 100% [Metamucil 1 packet PO DAILY 05/05/19 09/10/19 History Packet] Ibuprofen [Motrin] 600 mg PO Q6HR PRN #30 tab 05/09/19 09/10/19 Rx Gabapentin [Neurontin] 400 mg PO TID 09/16/19 09/16/19 History Ibuprofen [Motrin Ib] 400 mg PO DAILY 09/16/19 09/16/19 History Allergies Allergy/AdvReac Type Severity Reaction Status Date / Time adhesive tape Allergy Rash/Hives Verified 09/16/19 12:53 (paper tape ok to use) Latex, Natural Rubber Allergy Rash/Hives Verified 09/16/19 12:53 PQRS Measure Charge Sheet Measure #130: Documentation of Current Meds in Medical Chart: Patient's medications documented in chart Measure #226: Tobacco Use: Screen & Cessation Intervention: Pt not a tobacco user Measure #111: Pneumonia Vaccination: Pneumococcal vaccine NOT administered or previously given Measure #47: Advance Care Plan: Advance care planning discussed & documented, pt chose/unable to give Measure #412: Opioid Treatment Agreement: No documentation of signed opioid treatment agreement Measure #408: Opioid Therapy Follow-up Evaluation: Patient had NO f/u eval minimum every 3 months during opioid therapy Measure #317: Preventitive Care & Scrn High Bld Press & F/U: Normal blood pressure, f/u not required Measure #128: Body Mass Index (BMI) Screening & Follow-up: BMI documented within normal parameters Measure #131: Pain Assessment & Follow-up: Pain positive & plan documented, Follow-up scheduled Measure #431: Unhealthy Alcohol Use Preventative Care & Scrn: Patient not identified as an unhealthy alcohol user PQRS Narrative: Smoking Status Never smoker Pain Intensity [Neck] 5 Scale Used Numeric (1 - 10) Hx Alcohol Use (MH) Yes Home Medications: Ambulatory Orders Levothyroxine Sodium [Synthroid] 25 mcg PO QAM 03/17/16 Hematinic-F 324mg/1mg 1 tab PO DAILY 06/23/17 Cyclobenzaprine [Flexeril] 10 mg PO BID PRN 10/10/17 Dextroamphetamine/Amphetamine [Adderall] 20 mg PO BID 04/19/18 HYDROcodone/APAP 10-325MG [[place] 10-325] 1 tab PO BID PRN 05/05/19 Psyllium Husk 100% [Metamucil Packet] 1 packet PO DAILY 05/05/19 Ibuprofen [Motrin] 600 mg PO Q6HR PRN #30 tab 05/09/19 Gabapentin [Neurontin] 400 mg PO TID 09/16/19 Ibuprofen [Motrin Ib] 400 mg PO DAILY 09/16/19
== END | disposition home or self-care (01) ==
LOC: PNWHC3 12:40
PROVIDERS: ATTEND Anesthesiology
DX: M50.10 Cervical disc disorder with radiculopathy, unspecified cervical region (principal); Z79.891 Long term (current) use of opiate analgesic; Z79.899 Other long term (current) drug therapy; Z79.890 Hormone replacement therapy; Z91.048 Other nonmedicinal substance allergy status; Z91.040 Latex allergy status
CPT/HCPCS: 99211

== ENCOUNTER 2019-10-16 06:02 | Day surgery (SDC) | payer OTHER ==
[2019-10-09 15:59] VITALS: BMI 28.3
[2019-10-16 06:26] VITALS: RESP 16; TEMP 97.3
[2019-10-16] MEDS ORDERED: LACTATED RINGERS 1,000 ML IV ONE (06:26)
[2019-10-16] MEDS ORDERED: LIDOCAINE 1% (10MG/ML) FOR IV START INTRADERMA ONE (06:27)
[2019-10-16] MEDS ORDERED: MIDAZOLAM 2 MG/2 ML VIAL ONE (06:48)
[2019-10-16] MEDS ORDERED: DEXAMETHASONE SOD PHOSPHATE 10 MG/ML 1 ML VIAL ONE (06:48)
[2019-10-16] MEDS ORDERED: SODIUM CHLORIDE 0.9% (PF) 10 ML VIAL ONE (06:48)
[2019-10-16] MEDS ORDERED: IOPAMIDOL M200 10 ML VIAL ONE (06:48)
--- NOTE | 2019-10-16 07:15 | P.PCN ---
Date of Procedure: 10/16/19 Description of Procedure: Diagnosis: Cervical radiculopathy Cervical degenerative disc disease POSTOPERATIVE DIAGNOSIS: Diagnoses: Cervical radiculopathy Cervical degenerative disc disease PROCEDURE Cervical Epidural steroid injection under fluoroscopic guidance at the C7-T1 interspace using left paramedian approach Cervical epidurogram ANESTHESIA: Local with 1% lidocaine 3 ml and IV sedation with Versed and fentanyl, sedation time 7 min Fluoroscopy was used for the procedure and images were saved in the radiology portion of the chart. EBL: Minimal PROCEDURE INDICATION: The patient presents with cervical radicular symptoms unresponsive to conservative treatment. first cervical epidural steroid injection. PROCEDURE DESCRIPTION / TECHNIQUE: The patient was seen and identified in the preoperative area. Risks, benefits, complications including but not limited to infections ,bleeding ,allergic reaction to the medications ,nerve damage and incomplete pain relief, and alternatives were discussed with the patient. The patient agreed to proceed with the procedure and signed the consent. IV was started, and vital signs were stable. Patient was taken to the OR and time out was completed. The patient was placed in the prone position on procedure table and a pillow was placed under the chest area. The cervical area was prepped and draped in the usual sterile fashion. Conscious sedation was used during the procedure to decrease patients anxiety. Vital signs was monitored during the entire procedure. Using anterior-posterior fluoroscopy, the C7-T1 interlaminar space was identified and the skin over this site was marked and then infiltrated with 1% lidocaine subcutaneously. Subsequently, a 20-gauge Tuohy epidural needle was inserted and advanced toward the epidural space using the loss of resistance technique and guided by AP and 50 oblique fluoroscopy. The correct needle position in the epidural space was verified. After negative aspiration for blood and CSF and in the absence of paresthesias, Isovue 200 2 mL's was injected under live fluoroscopy with good epidural spread. After negative aspiration, a 5 ml mixture containing 10 mg of dexamethasone, 4 mL preservative free normal saline was injected. Needle was withdrawn intact, skin was cleansed, and bandages were applied. COMPLICATIONS: None DISPOSITION / PLANS: The patient was placed in a supine position and transferred to the recovery area in a stable condition for observation. There was no michelle dence of lower extremity motor or sensory deficit after the procedure. Patient was discharged from the recovery room after meeting discharge criteria. Home discharge instructions were given to the patient by the staff. The patient will be scheduled a repeat procedure in the clinic in 2-4 weeks.
[2019-10-16] MEDS ORDERED: LACTATED RINGERS 1,000 ML IV SCH (07:20)
[2019-10-16 07:32] VITALS: BP 115/71; PULSE 50
[2019-10-16] MEDS ORDERED: IV FLUID CONTINUATION 1,000 ML IV ONE (07:34)
--- NOTE | 2019-10-16 09:08 | FL ---
EXAMINATION TYPE: FL guided pain mgmt statistic DATE OF EXAM: 10/16/2019 CLINICAL HISTORY: Neck and upper back pain. TECHNIQUE: Fluoroscopy. COMPARISON: None. FINDINGS: Fluoroscopic guidance was provided during pain relief procedure performed by Dr. Self. A total of 15 seconds of fluoroscopic time was utilized during the procedure and two spot images are acquired. Images acquired shows needle localization with contrast injection near cervicothoracic shawanda ction. IMPRESSION: As Above.
== END 2019-10-16 07:46 | disposition home or self-care (01) ==
LOC: ORPAIN 06:02
PROVIDERS: ATTEND Anesthesiology
DX: M50.10 Cervical disc disorder with radiculopathy, unspecified cervical region (principal)
CPT/HCPCS: 62321; J2250; J1100; Q9966

== ENCOUNTER → 2020-05-26 | Outpatient (CLI) | payer OTHER ==
--- NOTE | 2020-05-26 13:03 | CT ---
EXAMINATION TYPE: CT iac wo con DATE OF EXAM: 05/26/2020 COMPARISON: None HISTORY: Dizziness CT DLP: 150mGycm Automated exposure control for dose reduction was used. FINDINGS: The external auditory canals are patent bilaterally. Mastoid air cells show no evidence of abnormal opacification bilaterally. The middle ear ossicles are symmetric and unremarkable. There is no evidence of suspicious surrounding soft tissue density to suggest cholesteatoma. The scutum is preserved bilaterally. The cochlea and the semicircular canals are symmetric and unremarkable. Ves tibular aqueduct and internal carotid canal appear unremarkable. Temporomandibular joints are mainta ined bilaterally. IMPRESSION: No significant abnormality seen to account for patient's symptoms.
== END | disposition home or self-care (01) ==
LOC: RADCTMAIN 12:17
PROVIDERS: ATTEND Otolaryngology
DX: R42 Dizziness and giddiness (principal)
CPT/HCPCS: 70480

== ENCOUNTER → 2021-09-01 | Outpatient (CLI) | payer OTHER ==
[2021-09-01 08:50] LABS: INR 0.9 (<1.2); Partial Thromboplastin Time 23.5 sec (22.0-30.0); Prothrombin Time 10.4 sec (9.0-12.0)
[2021-09-01 11:15] LABS: HCT 42.1 % (37.2-46.3); HGB 13.4 g/dL (12.0-15.0); MCH 29.3 pg (27.0-32.0); MCHC 31.8 g/dL (32.0-37.0); MCV 92.1 fL (80.0-97.0); Mean Platelet Volume 10.3 fL (9.5-12.2); NRBC Per 100 WBC 0.4 /100 WBCS (0.0-0.0); Platelet Count 259 X 10*3/uL (140-440); RBC 4.57 X 10*6/uL (4.10-5.20); RDW 12.8 % (11.5-14.5); WBC 5.67 X 10*3/uL (4.50-10.00)
[2021-09-01 11:40] LABS: ALT 90 U/L (8-44); AST 70 U/L (13-35); African American GFR (CKD) 116.5 (60.0-200.0); Albumin 4.3 g/dL (3.8-4.9); Albumin/Globulin Ratio 1.99 (1.60-3.17); Alkaline Phosphatase 41 U/L (41-126); BUN/Creat Ratio 21.12 Ratio (12.00-20.00); Blood Urea Nitrogen 14.7 mg/dL (9.0-27.0); Calcium 9.4 mg/dL (8.7-10.3); Carbon Dioxide 26.4 mmol/L (20.0-27.5); Chloride 103 mmol/L (96-109); Chol/HDL Ratio 3.59 Ratio; Globulin 2.2 g/dL (1.6-3.3); Glucose 100 mg/dL (70-110); LDL Cholesterol,Calculated 117.4 mg/dL (0.0-131.0); Non-African American GFR(CKD) 100.5 (60.0-200.0); Potassium 4.3 mmol/L (3.5-5.5); Sodium 141 mmol/L (135-145); Total Protein 6.5 g/dL (6.2-8.2)
== END | disposition home or self-care (01) ==
LOC: LABWHC1 07:09
PROVIDERS: ATTEND Family Medicine
DX: Z00.00 Encounter for general adult medical examination without abnormal findings (principal)
CPT/HCPCS: 36415; 80053; 80061; 83036; 84443; 85027; 85610; 85730

== ENCOUNTER → 2023-01-08 | Outpatient (CLI) | payer OTHER ==
--- NOTE | 2023-01-09 13:22 | CT ---
EXAMINATION TYPE: CT abdomen wo/w con DATE OF EXAM: 01/08/2023 COMPARISON: No prior ultrasound abdomen at this location. INDICATION: abnormal bloodwork showed enlarged liver, US had a mass on liver DLP: 741.7 mGycm, Automated exposure control for dose reduction was used. CONTRAST: 100 cc mL of Isovue 300. Study performed with Oral Contrast TECHNIQUE: Axial images were obtained from above the diaphragm to the pubic rami in the axial plane a t 5 mm thick sections. Reconstructed images are reviewed on the computer in the coronal plane. FINDINGS: Limited CT sections are obtained the lung bases. Some minimal streak opacities in the posterior righ t lung base. Correlate for atelectasis. There is some area of increased density which may lie along t he diaphragm. Correlate for prior asbestos exposure. CT ABDOMEN: Liver: No discrete masses are identified. Postcontrast imaging has a subtle hypodensity within the le ft lobe liver measuring 1.5 cm. Spleen: Punctate granulomas within the spleen. Pancreas: Normal Adrenal glands: The adrenal glands are normal. Gallbladder: Surgically absent Kidneys: No masses are evident. No hydronephrosis is present. No cysts are present. Delayed images were obtained through the kidneys, which remain unremarkable. No renal stones are evident. Aorta: Normal Inferior vena cava: Normal. CT PELVIS upper: Loops of bowel within the abdomen and pelvis are normal. Loops of bowel within the upper pelvis a ppear fluid filled. Oral contrast extends mid small bowel loops. Fecal debris is within the colon. Appendix: Normal as visualized. IMPRESSION: 1. 1.5 cm hypodensity left lobe liver. Finding is nonspecific based on the CT examination. Consider a contrast MRI for additional characterization of liver lesion. 2. Suspected calcification along the right posterior diaphragm. 3. Some mild ileus within the small bowel loops of the pelvis may be present.
== END | disposition home or self-care (01) ==
LOC: RADCTMAIN 15:15
PROVIDERS: ATTEND Family Medicine
DX: D18.03 Hemangioma of intra-abdominal structures (principal); K76.89 Other specified diseases of liver
CPT/HCPCS: 74170; Q9967

== ENCOUNTER → 2023-01-19 | Outpatient (CLI) | payer OTHER ==
--- NOTE | 2023-01-21 13:24 | MR ---
EXAMINATION TYPE: MR liver wo/w con DATE OF EXAM: 01/19/2023 1:07 PM CLINICAL INDICATION:Female, 53 years old with history of R93.2 ABNORMAL IMAGES OF LIVER; PHH, Mass on Liver seen on US and CT COMPARISON: CT scan abdomen from 01/08/2023 TECHNIQUE: Multiplanar multi-sequence imaging was performed without contrast. Post contrast imaging was performed. Post IV contrast subtraction images were also submitted for review. IV Contrast: 7ml cc Gadobutrol FINDINGS: LOWER CHEST: Postsurgical changes near the diaphragm in the right lower lung. ABDOMEN Liver: No evidence for hepatic steatosis or cirrhosis. Left hepatic lobe lesion of concern on prior i maging is high T2 signal measuring 15 x 19 x 16 mm. There may be a enhancing septum versus adjacent c yst on the left lateral aspect coronal imaging 1301 image 25. No observation that needs HCC criteria. Scattered high T2 low T1 nonenhancing hepatic cysts measuring up to 9 mm. Gallbladder and Bile ducts: Mild central intrahepatic biliary prominence. The gallbladder surgically absent. No evidence for ductal dilation, or biliary stricture or evidence of choledocholithiasis. Pancreas: No ductal dilation. No evidence for solid mass. Spleen: Normal for size. Adrenal glands: Unremarkable. Kidneys: No evidence for obstructive uropathy. No suspicious renal masses. Stomach and Bowel: No evidence for bowel wall thickening or evidence for obstruction.. Peritoneum: No evidence of pneumoperitoneum or free fluid. Vasculature: No aortic aneurysm. Musculoskeletal: The osseous structures appear intact. Lymph Nodes: No gross evidence for lymphadenopathy. Abdominal wall: Fat-containing umbilical hernia. IMPRESSION: 1. Left hepatic lobe lesion is felt to represent mildly complex cyst. Short-term follow-up in 3 enoc hs recommended to ensure stability. No hepatic observation that needs HCC criteria. 2. Few scattered simple appearing hepatic cyst. 3. Post cholecystectomy changes of prominent intrahepatic biliary system.
== END | disposition home or self-care (01) ==
LOC: RADMRIMAIN 11:44
PROVIDERS: ATTEND Family Medicine
DX: K76.89 Other specified diseases of liver (principal); D18.03 Hemangioma of intra-abdominal structures; R93.2 Abnormal findings on diagnostic imaging of liver and biliary tract; Z90.49 Acquired absence of other specified parts of digestive tract
CPT/HCPCS: 74183; A9585

== ENCOUNTER → 2023-06-18 | Outpatient (CLI) | payer OTHER ==
--- NOTE | 2023-06-20 11:19 | MR ---
EXAMINATION TYPE: MR liver wo/w con DATE OF EXAM: 06/18/2023 6:47 AM CLINICAL INDICATION:Female, 53 years old with history of K76.89 DISORDER OF LIVER R74.8 ABNORMAL ENZY MES; PHH, Elevated enzymes COMPARISON: CT scan abdomen from 01/08/2023. TECHNIQUE: Multiplanar multi-sequence imaging was performed without contrast. Post contrast imaging was performed. Post IV contrast subtraction images were also submitted for review. IV Contrast: 6.5 cc Gadavist FINDINGS: LOWER CHEST: No gross irregularity. ABDOMEN Liver: No evidence for hepatic steatosis or cirrhosis. Lesion in the left lobe of the liver is iden tified and unchanged in size compared to prior studies. The lesion has imaging characteristics of a b enign hemangioma. The lesion shows peripheral contrast enhancement and finally nonvisible on equilibr ium phase compared to the remainder of the liver several other subcentimeter lesions have imaging characteristics of tiny cysts. Gallbladder and Bile ducts: No evidence for ductal dilation, or biliary stricture or evidence of chol edocholithiasis. The gallbladder is within normal limits. Pancreas: No ductal dilation. No evidence for solid mass. Spleen: Normal for size. Adrenal glands: Unremarkable. Kidneys: No evidence for obstructive uropathy. No suspicious renal masses. Stomach and Bowel: No evidence for bowel wall thickening or evidence for obstruction. Retroperitoneum/Peritoneum: No evidence of pneumoperitoneum or free fluid. Vasculature: No aortic aneurysm. Musculoskeletal: The osseous structures appear intact. Lymph Nodes: No gross evidence for lymphadenopathy. Abdominal wall: Unremarkable. IMPRESSION: Stable exam. Left lobe hemangioma redemonstrated. Subcentimeter cysts are demonstrated..
== END | disposition home or self-care (01) ==
LOC: RADMRIMAIN 05:57
PROVIDERS: ATTEND Family Medicine
DX: K76.89 Other specified diseases of liver (principal); R74.8 Abnormal levels of other serum enzymes; D18.03 Hemangioma of intra-abdominal structures
CPT/HCPCS: 74183; A9585